=== PATIENT | female | born 1960 | race American Indian/Alaskan Native ===

== ENCOUNTER 2017-08-13 14:55 | Inpatient (IN) | payer MEDICAID, OTHER ==
[2017-08-13] MEDS ORDERED: NACL 0.9% 1000 ML 2,000 ML ONE (15:33)
[2017-08-13] MEDS ORDERED: ATIVAN ONE ×2 (15:40→18:54)
[2017-08-13] MEDS ORDERED: ATIVAN IV ONE ×3 (15:42→17:07)
[2017-08-13] MEDS ORDERED: NACL 0.9% 1000 ML 1,000 ML IV ONE ×2 (15:43→15:47)
[2017-08-13] MEDS ORDERED: VITAMIN B-1 100 MG, FOLVITE 1 MG, INFUVITE 10 ML in NACL 0.9% 1000 ML 1,000 ML IV ONE (15:45)
[2017-08-13] MEDS ORDERED: ATIVAN IV PRN (15:54)
[2017-08-13] MEDS ORDERED: TYLENOL PO ONE (17:06)
[2017-08-13 17:14] LABS: Amphetamine Screen,Urine PRESUMPTIVE NEGATIVE; Benzodiazepines Screen,Urine PRESUMPTIVE NEGATIVE; Cocaine Screen,Urine PRESUMPTIVE NEGATIVE; Methadone Screen,Urine PRESUMPTIVE NEGATIVE; Opiate Screen,Urine PRESUMPTIVE NEGATIVE
[2017-08-13 17:16] LABS: Bacteria,Urine 4+ /HPF (Negative); Bilirubin,Urine NEG (Negative); Blood,Urine MOD (Negative); Color,Urine Amber (Yellow); Hyaline Casts,Urine 1 /LPF; Mucus,Urine FEW /HPF; Nitrite,Urine NEG (Negative)
[2017-08-13 17:17] LABS: WBC,Urine > 182.0 /HPF (0.0-6.0)
--- NOTE | 2017-08-13 17:24 | Cat Scan Report ---
FINAL REPORT PROCEDURE: CT head without contrast. TECHNIQUE: Computerized tomography of the head was performed without contrast material. HISTORY: Alcohol withdrawal/seizure. COMPARISON: No prior studies are available for comparison. FINDINGS: There is motion artifact on several of the images. There is mild cerebral atrophy. The dean matter and white matter appear normal. There are no mass lesions. There is no intracranial hemorrhage. The calvarium appears intact. The mastoid air cells are clear. There is mucosal thickening in the right maxillary sinus, both frontal sinuses and a few of the ethmoid air cells. IMPRESSION: Limited study. No significant abnormality of the brain.
[2017-08-13 17:33] LABS: Cannabinoid Screen,Urine PRESUMPTIVE POSITIVE
[2017-08-13 17:45] LABS: Hemoglobin 11.3 gm/dl (10.1-14.3); Mean Corpuscular HGB Conc 34 % (30-34); Mean Corpuscular Hemoglobin 36 pg (28-32); Mean Corpuscular Volume 105 fl (79-97); Platelet Count 133 K/mm3 (140-440); Red Blood Count 3.16 M/mm3 (3.65-5.03); Red Cell Distribution Width 13.9 % (13.2-15.2)
[2017-08-13 18:06] LABS: Creatine Kinase MB 1.6 ng/mL (0.0-4.0)
[2017-08-13 18:08] LABS: Alanine Aminotransferase 52 units/L (7-56); Albumin 2.6 g/dL (3.9-5); BUN/Creatinine Ratio 13; Blood Urea Nitrogen 5 mg/dL (7-17); Calcium 7.3 mg/dL (8.4-10.2); Hemolysis Index 8
[2017-08-13 18:19] LABS: Band Neutrophils # (Manual) 1.4 K/mm3; Basophils % (Manual) 0 % (0.0-1.8); Eosinophils % (Manual) 0 % (0.0-4.3); Monocytes % (Manual) 0 % (0.0-7.3); Total Cells Counted 100
[2017-08-13 18:19] LABS: Magnesium 0.6 mg/dL (1.7-2.3)
[2017-08-13 18:20] LABS: INR 1.24 (0.87-1.13); Platelet Estimate Cons; RBC Morphology Normal; Toxic Granulation 1+; Toxic Vacuolation Few
[2017-08-13 18:21] LABS: Partial Thromboplastin Time 38.3 Sec. (24.2-36.6)
[2017-08-13] MEDS ORDERED: MAGNESIUM SULFATE 2GM/50ML 2 GM/50 ML BAG IV ONE (18:22)
[2017-08-13] MEDS ORDERED: MAGNESIUM SULFATE 4GM/100ML 4 GM/100 ML BAG IV ONE (18:23)
[2017-08-13] MEDS ORDERED: POTASSIUM CHLORIDE PO ONE (18:24)
--- NOTE | 2017-08-13 18:28 | Emergency Department Report ---
ED Palpitations HPI - General Chief Complaint: Arrhythmia/Palpitations Stated Complaint: SVT Time Seen by Provider: 08/13/17 15:53 Source: patient, old records reviewed (no trace regional hospital record for review) Mode of arrival: Stretcher Limitations: No Limitations - History of Present Illness Initial Comments: 56-year-old female with a past medical history hypertension and daily alcohol use presents to the hospital with tachycardia. Patient received adenosine 6 then 12 in route to the hospital without improvement. Patient has 2 daughters at the bedside. Patient has been having nausea, vomiting, and diarrhea today. Patient had a seizure witnessed by there are medical and therefore EMS was called. Patient had generalized shaking, foaming at the mouth, followed by post ictal/confusion. No previous history of seizures reported. They state the patient does drink alcohol daily and did not have a drink since yesterday. Patient presents extremely tremulous in the ED with tachycardia. Patient is alert and oriented 3. She denies any pain. - Related Data Allergies Allergy/AdvReac Type Severity Reaction Status Date / Time No Known Allergies Allergy Unverified 08/13/17 14:57 ED Review of Systems ROS: Stated complaint: SVT Other details as noted in HPI Comment: All other systems reviewed and negative Other: Constitutional: No fevers chills Eyes: No eye pain visual changes ENT: No ear pain or throat pain Neck: Denies pain Respiratory: Denies cough wheezing shortness of breath Cardiovascular: Denies chest pain GI: Denies abdominal pain : Denies dysuria Musculoskeletal: Denies back pain Skin: Denies rash Neurologic: Denies headache Psychiatric: Denies suicidal ideation, hallucinations ED Past Medical Hx - Past Medical History Hx Hypertension: Yes - Social History Smoking Status: Current Every Day Smoker Substance Use Type: Alcohol (daily) ED Physical Exam - General Limitations: No Limitations - Other Other exam information: General: Tremulous Head exam: Atraumatic, normocephalic Eyes exam: Normal appearance, pupils equal reactive to light ENT: Moist mucous membrane, normal oropharynx Neck exam: Normal inspection, full range of motion, no meningismus nontender Respiratory exam: Clear to auscultation bilateral, no wheezes, rales, crackles. Tachypnea Cardiovascular: Tachycardic regular rhythm Abdomen: Soft, nondistended, and nontender, with normal bowel sounds, no rebound, or guarding Extremity: Full range of motion normal inspection no deformity Back: Normal Inspection, full range of motion, no tenderness Neurologic: Alert, oriented x3, cranial nerves intact, no motor or sensory deficit, extremely tremulous Psychiatric: normal affect, normal mood Skin: Warm, dry, intact ED Course Vital Signs 08/13/17 08/13/17 08/13/17 14:57 15:20 15:45 Temperature 101.8 F H Pulse Rate 152 H 152 H 166 H Respiratory 18 40 H 34 H Rate Blood Pressure 121/76 103/74 114/78 Blood Pressure [Right] O2 Sat by Pulse 98 96 Oximetry 08/13/17 08/13/17 08/13/17 16:15 16:31 16:45 Temperature Pulse Rate 158 H 165 H 163 H Respiratory 32 H 20 21 Rate Blood Pressure 114/78 101/79 90/69 Blood Pressure [Right] O2 Sat by Pulse 100 98 Oximetry 08/13/17 08/13/17 08/13/17 17:01 17:15 17:30 Temperature Pulse Rate 147 H 152 H 145 H Respiratory 24 39 H 21 Rate Blood Pressure 90/69 90/69 120/79 Blood Pressure [Right] O2 Sat by Pulse 99 97 100 Oximetry 08/13/17 08/13/17 08/13/17 17:45 18:00 18:15 Temperature Pulse Rate 143 H 145 H 145 H Respiratory 28 H 28 H 27 H Rate Blood Pressure 120/79 118/74 118/74 Blood Pressure [Right] O2 Sat by Pulse 99 100 100 Oximetry 08/13/17 08/13/17 08/13/17 18:30 18:45 19:00 Temperature Pulse Rate 140 H 138 H 144 H Respiratory 20 26 H 13 Rate Blood Pressure 117/71 117/71 103/66 Blood Pressure [Right] O2 Sat by Pulse 100 99 97 Oximetry 08/13/17 08/13/17 19:01 19:15 Temperature 99.8 F H Pulse Rate 135 H Respiratory 18 18 Rate Blood Pressure Blood Pressure 117/71 [Right] O2 Sat by Pulse 100 100 Oximetry - Reevaluation(s) Reevaluation #1: 08/13/17 I was called to the bedside for possible adenosine administration due to persistent SVT. After monitoring EKG review and further history taking I believe the patient was experiencing acute alcohol withdrawal symptoms an EKG represents sinus tachycardia therefore no further adenosine provided at this time. Case was discussed with Dr. Joiner who agrees that findings do not support A. fib/flutter, or SVT at this time Reevaluation #2: With ED treatment heart rate is improving. Tremors are decreasing but persists. No further seizure activity in the ED. No vomiting - Consultations Consultation #1: 08/13/17 16:[address] Joiner, agrees not aflutter/fib. sinus tach likely. ED Medical Decision Making - Lab Data Result diagrams: 08/13/17 17:26 08/13/17 17:26 Lab Results 08/13/17 08/13/17 08/13/17 Range/Units 15:44 16:40 16:40 WBC (4.5-11.0) K/mm3 RBC (3.65-5.03) M/mm3 Hgb (10.1-14.3) gm/dl Hct (30.3-42.9) % MCV (79-97) fl MCH (28-32) pg MCHC (30-34) % RDW (13.2-15.2) % Plt Count (140-440) K/mm3 Add Manual Diff Total Counted Seg Neuts % (Manual) (40.0-70.0) % Band Neutrophils % % Lymphocytes % (Manual) (13.4-35.0) % Reactive Lymphs % (Man) % Monocytes % (Manual) (0.0-7.3) % Eosinophils % (Manual) (0.0-4.3) % Basophils % (Manual) (0.0-1.8) % Metamyelocytes % % Myelocytes % % Promyelocytes % % Blast Cells % % Nucleated RBC % Seg Neutrophils # Man (1.8-7.7) K/mm3 Band Neutrophils # K/mm3 Lymphocytes # (Manual) (1.2-5.4) K/mm3 Abs React Lymphs (Man) K/mm3 Monocytes # (Manual) (0.0-0.8) K/mm3 Eosinophils # (Manual) (0.0-0.4) K/mm3 Basophils # (Manual) (0.0-0.1) K/mm3 Metamyelocytes # K/mm3 Myelocytes # K/mm3 Promyelocytes # K/mm3 Blast Cells # K/mm3 WBC Morphology Hypersegmented Neuts Hyposegmented Neuts Hypogranular Neuts Smudge Cells Toxic Granulation Toxic Vacuolation Dohle Bodies Pelger-Huet Anomaly Kathryn Rods Platelet Estimate Clumped Platelets Plt Clumps, EDTA Large Platelets Giant Platelets Platelet Satelliting Plt Morphology Comment RBC Morphology Dimorphic RBCs Polychromasia Hypochromasia Poikilocytosis Anisocytosis Microcytosis Macrocytosis Spherocytes Pappenheimer Bodies Sickle Cells Target Cells Tear Drop Cells Ovalocytes Helmet Cells [place] Bodies [place] Rings Narda Cells Bite Cells Crenated Cell Elliptocytes Acanthocytes (Spur) Rouleaux Hemoglobin C Crystals Schistocytes Malaria parasites Eugene Bodies Hem Pathologist Commnt PT (12.2-14.9) Sec. INR (0.87-1.13) APTT (24.2-36.6) Sec. VBG pH (7.320-7.420) Sodium (137-145) mmol/L Potassium (3.6-5.0) mmol/L Chloride (98-107) mmol/L Carbon Dioxide (22-30) mmol/L Anion Gap mmol/L BUN (7-17) mg/dL Creatinine (0.7-1.2) mg/dL Estimated GFR ml/min BUN/Creatinine Ratio % Glucose (65-100) mg/dL Lactic Acid (0.7-2.0) mmol/L Calcium (8.4-10.2) mg/dL Magnesium 0.60 L* (1.7-2.3) mg/dL Total Bilirubin (0.1-1.2) mg/dL AST (5-40) units/L ALT (7-56) units/L Alkaline Phosphatase (35-129) units/L Total Creatine Kinase (30-135) units/L CK-MB (CK-2) (0.0-4.0) ng/mL CK-MB (CK-2) Rel Index (0-4) Troponin T (0.00-0.029) ng/mL Total Protein (6.3-8.2) g/dL Albumin (3.9-5) g/dL Albumin/Globulin Ratio % Lipase 8 L (13-60) units/L Urine Color Laura (Yellow) Urine Turbidity Slightly-cloudy (Clear) Urine pH 6.0 (5.0-7.0) Ur Specific [place] 1.016 (1.003-1.030) Urine Protein 100 mg/dl (Negative) mg/dL Urine Glucose (UA) Neg (Negative) mg/dL Urine Ketones Neg (Negative) mg/dL Urine Blood Mod (Negative) Urine Nitrite Neg (Negative) Urine Bilirubin Neg (Negative) Urine Urobilinogen 2.0 (<2.0) mg/dL Ur Leukocyte Esterase Lg (Negative) Urine WBC (Auto) > 182.0 H (0.0-6.0) /HPF Urine RBC (Auto) 68.0 (0.0-6.0) /HPF U Epithel Cells (Auto) < 1.0 (0-13.0) /HPF Urine Bacteria (Auto) 4+ (Negative) /HPF Ur Transition Epith Cell 2 /HPF Hyaline Casts 1 /LPF Urine Mucus Few /HPF Urine Opiates Screen Presumptive negative Urine Methadone Screen Presumptive negative Ur Barbiturates Screen Presumptive negative Ur Phencyclidine Scrn Presumptive negative Ur Amphetamines Screen Presumptive negative U Benzodiazepines Scrn Presumptive negative Urine Cocaine Screen Presumptive negative U Marijuana (THC) Screen Presumptive positive Drugs of Abuse Note Disclamer Plasma/Serum Alcohol (0-0.07) gm% 08/13/17 08/13/17 08/13/17 Range/Units 17:26 17:26 17:26 WBC 23.7 H (4.5-11.0) K/mm3 RBC 3.16 L (3.65-5.03) M/mm3 Hgb 11.3 (10.1-14.3) gm/dl Hct 33.0 (30.3-42.9) % MCV 105 H (79-97) fl MCH 36 H (28-32) pg MCHC 34 (30-34) % RDW 13.9 (13.2-15.2) % Plt Count 133 L (140-440) K/mm3 Add Manual Diff Complete Total Counted 100 Seg Neuts % (Manual) 90.0 H (40.0-70.0) % Band Neutrophils % 6.0 % Lymphocytes % (Manual) 4.0 L (13.4-35.0) % Reactive Lymphs % (Man) 0 % Monocytes % (Manual) 0 (0.0-7.3) % Eosinophils % (Manual) 0 (0.0-4.3) % Basophils % (Manual) 0 (0.0-1.8) % Metamyelocytes % 0 % Myelocytes % 0 % Promyelocytes % 0 % Blast Cells % 0 % Nucleated RBC % Not Reportable Seg Neutrophils # Man 21.3 H (1.8-7.7) K/mm3 Band Neutrophils # 1.4 K/mm3 Lymphocytes # (Manual) 0.9 L (1.2-5.4) K/mm3 Abs React Lymphs (Man) 0.0 K/mm3 Monocytes # (Manual) 0.0 (0.0-0.8) K/mm3 Eosinophils # (Manual) 0.0 (0.0-0.4) K/mm3 Basophils # (Manual) 0.0 (0.0-0.1) K/mm3 Metamyelocytes # 0.0 K/mm3 Myelocytes # 0.0 K/mm3 Promyelocytes # 0.0 K/mm3 Blast Cells # 0.0 K/mm3 WBC Morphology Not Reportable Hypersegmented Neuts Not Reportable Hyposegmented Neuts Not Reportable Hypogranular Neuts Not Reportable Smudge Cells Not Reportable Toxic Granulation 1+ Toxic Vacuolation Few Dohle Bodies Not Reportable Pelger-Huet Anomaly Not Reportable Kathryn Rods Not Reportable Platelet Estimate Cons Clumped Platelets Not Reportable Plt Clumps, EDTA Not Reportable Large Platelets Not Reportable Giant Platelets Not Reportable Platelet Satelliting Not Reportable Plt Morphology Comment Not Reportable RBC Morphology Normal Dimorphic RBCs Not Reportable Polychromasia Not Reportable Hypochromasia Not Reportable Poikilocytosis Not Reportable Anisocytosis Not Reportable Microcytosis Not Reportable Macrocytosis Not Reportable Spherocytes Not Reportable Pappenheimer Bodies Not Reportable Sickle Cells Not Reportable Target Cells Not Reportable Tear Drop Cells Not Reportable Ovalocytes Not Reportable Helmet Cells Not Reportable [place] Bodies Not Reportable [place] Rings Not Reportable [place] Cells Not Reportable Bite Cells Not Reportable Crenated Cell Not Reportable Elliptocytes Not Reportable Acanthocytes (Spur) Not Reportable Rouleaux Not Reportable Hemoglobin C Crystals Not Reportable Schistocytes Not Reportable Malaria parasites Not Reportable [place] Bodies Not Reportable Hem Pathologist Commnt No PT 16.3 H (12.2-14.9) Sec. INR 1.24 H (0.87-1.13) APTT 38.3 H (24.2-36.6) Sec. VBG pH (7.320-7.420) Sodium 136 L (137-145) mmol/L Potassium 3.2 L (3.6-5.0) mmol/L Chloride 97.1 L (98-107) mmol/L Carbon Dioxide 16 L (22-30) mmol/L Anion Gap 26 mmol/L BUN 5 L (7-17) mg/dL Creatinine 0.4 L (0.7-1.2) mg/dL Estimated GFR > 60 ml/min BUN/Creatinine Ratio 13 % Glucose 115 H (65-100) mg/dL Lactic Acid (0.7-2.0) mmol/L Calcium 7.3 L (8.4-10.2) mg/dL Magnesium (1.7-2.3) mg/dL Total Bilirubin 1.00 (0.1-1.2) mg/dL AST 123 H (5-40) units/L ALT 52 (7-56) units/L Alkaline Phosphatase 198 H (35-129) units/L Total Creatine Kinase 70 (30-135) units/L CK-MB (CK-2) 1.6 (0.0-4.0) ng/mL CK-MB (CK-2) Rel Index 2.2 (0-4) Troponin T < 0.010 (0.00-0.029) ng/mL Total Protein 6.2 L (6.3-8.2) g/dL Albumin 2.6 L (3.9-5) g/dL Albumin/Globulin Ratio 0.7 % Lipase (13-60) units/L Urine Color (Yellow) Urine Turbidity (Clear) Urine pH (5.0-7.0) Ur Specific [place] (1.003-1.030) Urine Protein (Negative) mg/dL Urine Glucose (UA) (Negative) mg/dL Urine Ketones (Negative) mg/dL Urine Blood (Negative) Urine Nitrite (Negative) Urine Bilirubin (Negative) Urine Urobilinogen (<2.0) mg/dL Ur Leukocyte Esterase (Negative) Urine WBC (Auto) (0.0-6.0) /HPF Urine RBC (Auto) (0.0-6.0) /HPF U Epithel Cells (Auto) (0-13.0) /HPF Urine Bacteria (Auto) (Negative) /HPF Ur Transition Epith Cell /HPF Hyaline Casts /LPF Urine Mucus /HPF Urine Opiates Screen Urine Methadone Screen Ur Barbiturates Screen Ur Phencyclidine Scrn Ur Amphetamines Screen U Benzodiazepines Scrn Urine Cocaine Screen U Marijuana (THC) Screen Drugs of Abuse Note Plasma/Serum Alcohol (0-0.07) gm% 08/13/17 08/13/17 08/13/17 Range/Units 17:26 17:26 17:26 WBC (4.5-11.0) K/mm3 RBC (3.65-5.03) M/mm3 Hgb (10.1-14.3) gm/dl Hct (30.3-42.9) % MCV (79-97) fl MCH (28-32) pg MCHC (30-34) % RDW (13.2-15.2) % Plt Count (140-440) K/mm3 Add Manual Diff Total Counted Seg Neuts % (Manual) (40.0-70.0) % Band Neutrophils % % Lymphocytes % (Manual) (13.4-35.0) % Reactive Lymphs % (Man) % Monocytes % (Manual) (0.0-7.3) % Eosinophils % (Manual) (0.0-4.3) % Basophils % (Manual) (0.0-1.8) % Metamyelocytes % % Myelocytes % % Promyelocytes % % Blast Cells % % Nucleated RBC % Seg Neutrophils # Man (1.8-7.7) K/mm3 Band Neutrophils # K/mm3 Lymphocytes # (Manual) (1.2-5.4) K/mm3 Abs React Lymphs (Man) K/mm3 Monocytes # (Manual) (0.0-0.8) K/mm3 Eosinophils # (Manual) (0.0-0.4) K/mm3 Basophils # (Manual) (0.0-0.1) K/mm3 Metamyelocytes # K/mm3 Myelocytes # K/mm3 Promyelocytes # K/mm3 Blast Cells # K/mm3 WBC Morphology Hypersegmented Neuts Hyposegmented Neuts Hypogranular Neuts Smudge Cells Toxic Granulation Toxic Vacuolation Dohle Bodies Pelger-Huet Anomaly Kathryn Rods Platelet Estimate Clumped Platelets Plt Clumps, EDTA Large Platelets Giant Platelets Platelet Satelliting Plt Morphology Comment RBC Morphology Dimorphic RBCs Polychromasia Hypochromasia Poikilocytosis Anisocytosis Microcytosis Macrocytosis Spherocytes Pappenheimer Bodies Sickle Cells Target Cells Tear Drop Cells Ovalocytes Helmet Cells [place] Bodies [place] Rings [place] Cells Bite Cells Crenated Cell Elliptocytes Acanthocytes (Spur) Rouleaux Hemoglobin C Crystals Schistocytes Malaria parasites Eugene Bodies Hem Pathologist Commnt PT (12.2-14.9) Sec. INR (0.87-1.13) APTT (24.2-36.6) Sec. VBG pH 7.517 H (7.320-7.420) Sodium (137-145) mmol/L Potassium (3.6-5.0) mmol/L Chloride (98-107) mmol/L Carbon Dioxide (22-30) mmol/L Anion Gap mmol/L BUN (7-17) mg/dL Creatinine (0.7-1.2) mg/dL Estimated GFR ml/min BUN/Creatinine Ratio % Glucose (65-100) mg/dL Lactic Acid 7.30 H* (0.7-2.0) mmol/L Calcium (8.4-10.2) mg/dL Magnesium (1.7-2.3) mg/dL Total Bilirubin (0.1-1.2) mg/dL AST (5-40) units/L ALT (7-56) units/L Alkaline Phosphatase (35-129) units/L Total Creatine Kinase (30-135) units/L CK-MB (CK-2) (0.0-4.0) ng/mL CK-MB (CK-2) Rel Index (0-4) Troponin T (0.00-0.029) ng/mL Total Protein (6.3-8.2) g/dL Albumin (3.9-5) g/dL Albumin/Globulin Ratio % Lipase (13-60) units/L Urine Color (Yellow) Urine Turbidity (Clear) Urine pH (5.0-7.0) Ur Specific [place] (1.003-1.030) Urine Protein (Negative) mg/dL Urine Glucose (UA) (Negative) mg/dL Urine Ketones (Negative) mg/dL Urine Blood (Negative) Urine Nitrite (Negative) Urine Bilirubin (Negative) Urine Urobilinogen (<2.0) mg/dL Ur Leukocyte Esterase (Negative) Urine WBC (Auto) (0.0-6.0) /HPF Urine RBC (Auto) (0.0-6.0) /HPF U Epithel Cells (Auto) (0-13.0) /HPF Urine Bacteria (Auto) (Negative) /HPF Ur Transition Epith Cell /HPF Hyaline Casts /LPF Urine Mucus /HPF Urine Opiates Screen Urine Methadone Screen Ur Barbiturates Screen Ur Phencyclidine Scrn Ur Amphetamines Screen U Benzodiazepines Scrn Urine Cocaine Screen U Marijuana (THC) Screen Drugs of Abuse Note Plasma/Serum Alcohol < 0.01 (0-0.07) gm% - EKG Data -: EKG Interpreted by Me (+ artifact) EKG shows normal: sinus rhythm, axis (15), QRS complexes (81), ST-T waves (no stemi) Rate: tachycardia (166) - EKG Data When compared to previous EKG there are: previous EKG unavailable - Radiology Data Radiology results: report reviewed read by radiologist ct head: naf cxr: naf - Medical Decision Making Patient will require admission to the ICU for further treatment and stabilization. Alcohol withdrawal: Patient has alcohol dependence and exhibiting alcohol was drawn tremors with associated seizures. This likely cause of her tachycardia along with dehydration due to nausea and vomiting and a fever. Patient receiving multiple doses of Ativan for symptom control CIWA protocol initiated Seizure: Related to alcohol withdrawal, low magnesium CT head negative can also contribute to elevated lactic acid Sepsis: Positive UTI. Zosyn initiated. Significant leukocytosis Likely cause of fever and contributing factor tachycardia Elevated lactic acid Blood cultures and urine cultures pending Alcohol abuse/dependence: Patient has signs of long-term alcohol abuse included thrombocytopenia, elevated coags, LFT elevation, magnesium, and hypokalemia. Potassium initiated by mouth Magnesium 4 g initiated in the ED Up-to-date provided to daughter (contact on chart) regarding patient's status and need for ICU admission - Differential Diagnosis sepsis, alcohol withdrawal, electrolyte abnormality, ICH, encephalopathy, Critical Care Time: Yes Critical care time in (mins) excluding proc time.: 45 Critical care attestation.: If time is entered above; I have spent that time in minutes in the direct care of this critically ill patient, excluding procedure time. ED Disposition Clinical Impression: Alcohol withdrawal seizure, Tremor, Sinus tachycardia, Hypomagnesemia, Hypokalemia, UTI (urinary tract infection), Sepsis, Lactic acid acidosis, Thrombocytopenia, Marijuana abuse, Alcohol dependence Alcohol withdrawal Qualifiers: Complication of substance-induced condition: with unspecified complication Qualified Code(s): F10.239 - Alcohol dependence with withdrawal, unspecified Disposition: DC-09 OP ADMIT IP TO THIS HOSP Is pt being admited?: Yes Condition: Serious Time of Disposition: 18:28 (Dr Velasquez/hosp)
[2017-08-13] MEDS ORDERED: ZOSYN/NS 4.5GM/100ML 4.5 GM/100 ML VIAL IV SCH (18:30)
--- NOTE | 2017-08-13 18:49 | XRay Report ---
FINAL REPORT EXAM: XR CHEST 1V AP HISTORY: fever, seizure TECHNIQUE: upright single view chest PRIORS: None. FINDINGS: Cardiac and mediastinal contours are unremarkable. No focal pulmonary infiltrate is identified. No pleural fluid collection seen. Pulmonary vasculature is unremarkable. IMPRESSION: Negative single-view chest
[2017-08-13] MEDS ORDERED: MAGNESIUM SULFATE 2GM/50ML 4 GM/100 ML BAG IV ONE (18:55)
[2017-08-13] MEDS ORDERED: TRIPLE ANTIBIOTIC TP ONE (23:43)
--- NOTE | 2017-08-13 23:55 | History and Physical Report ---
History of Present Illness Date of examination: 08/13/17 Date of admission: 08/13/17 18:29 Chief complaint: Cc New onset seizures History of present illness: History of Present Illness 56-year-old female with a past medical history hypertension and daily alcohol use presents to the hospital with tachycardia. Patient received adenosine 6 then 12 en route to the hospital without improvement. Patient has 2 daughters at the bedside. Patient has been having nausea, vomiting, and diarrhea today. Patient had a seizure witnessed by them and therefore EMS was called. Patient had generalized shaking, foaming at the mouth, followed by post ictal/ confusion. No previous history of seizures reported. They state the patient does drink alcohol daily and did not have a drink since yesterday. Patient presents extremely tremulous in the ED with tachycardia. Patient is alert and oriented 3. She denies any pain. Past Medical History Hypertension Social History Smoking Status: Current Every Day Smoker Substance Use Type: Alcohol (daily) Surg Hx NA Fam Hx Htn Review of Systems Stated complaint: SVT Other details as noted in HPI Comment: All other systems reviewed and negative Other: Constitutional: No fevers chills Eyes: No eye pain visual changes ENT: No ear pain or throat pain Neck: Denies pain Respiratory: Denies cough wheezing shortness of breath Cardiovascular: Denies chest pain GI: Denies abdominal pain : Denies dysuria Musculoskeletal: Denies back pain Skin: Denies rash Neurologic: Denies headache Psychiatric: Denies suicidal ideation, hallucinations Medications and Allergies Allergies Allergy/AdvReac Type Severity Reaction Status Date / Time No Known Allergies Allergy Unverified 08/13/17 14:57 Active Meds: Active Medications Piperacillin Sod/Tazobactam Sod (Zosyn/Ns 4.5gm/100ml) 4.5 gm in 100 mls @ 200 mls/hr IV ONCE FADY Lorazepam (Ativan) 2 mg IV Q1HR PRN PRN Reason: CIWA-Ar 8-15 Lorazepam (Ativan) 4 mg IV Q1HR PRN PRN Reason: CIWA-Ar 16-25 Last Admin: 08/13/17 23:14 Dose: 4 mg Lorazepam (Ativan) 4 mg IV Q15MIN PRN PRN Reason: CIWA-Ar >25 Exam - Constitutional Vitals: Temp Pulse Resp BP Pulse Ox 102.0 F H 130 H 24 111/70 99 08/13/17 19:58 01/09/18 19:58 08/13/17 19:58 08/13/17 19:58 08/13/17 19:58 General appearance: Present: mild distress, well-nourished - EENT Eyes: Present: PERRL ENT: hearing intact, clear oral mucosa - Neck Neck: Present: supple, normal ROM - Respiratory Respiratory effort: normal Respiratory: bilateral: CTA - Cardiovascular Heart rate: 110 Rhythm: regular Heart Sounds: Present: S1 & S2. Absent: rub, click - Extremities Extremities: no ischemia, pulses intact, pulses symmetrical, No edema Peripheral Pulses: within normal limits - Abdominal General gastrointestinal: Present: soft, non-tender, non-distended, normal bowel sounds Female genitourinary: Present: normal - Integumentary Integumentary: Present: clear, warm, dry - Musculoskeletal Musculoskeletal: generalized weakness - Psychiatric Psychiatric: intact judgment & insight, memory intact, agitated - Neurologic Neurologic: CNII-XII intact, moves all extremities - Allied Health Allied health notes reviewed: nursing, case management Results - Labs CBC & Chem 7: 08/13/17 17:26 08/14/17 05:45 Labs: Laboratory Last Values WBC 23.7 K/mm3 (4.5-11.0) H 08/13/17 17:26 RBC 3.16 M/mm3 (3.65-5.03) L 08/13/17 17:26 Hgb 11.3 gm/dl (10.1-14.3) 08/13/17 17:26 Hct 33.0 % (30.3-42.9) 08/13/17 17:26 MCV 105 fl (79-97) H 08/13/17 17:26 MCH 36 pg (28-32) H 08/13/17 17:26 MCHC 34 % (30-34) 08/13/17 17:26 RDW 13.9 % (13.2-15.2) 08/13/17 17:26 Plt Count 133 K/mm3 (140-440) L 08/13/17 17:26 Add Manual Diff Complete 08/13/17 17:26 Total Counted 100 08/13/17 17:26 Seg Neuts % (Manual) 90.0 % (40.0-70.0) H 08/13/17 17:26 Band Neutrophils % 6.0 % 08/13/17 17:26 Lymphocytes % (Manual) 4.0 % (13.4-35.0) L 08/13/17 17:26 Reactive Lymphs % (Man) 0 % 08/13/17 17:26 Monocytes % (Manual) 0 % (0.0-7.3) 08/13/17 17:26 Eosinophils % (Manual) 0 % (0.0-4.3) 08/13/17 17:26 Basophils % (Manual) 0 % (0.0-1.8) 08/13/17 17:26 Metamyelocytes % 0 % 08/13/17 17:26 Myelocytes % 0 % 08/13/17 17:26 Promyelocytes % 0 % 08/13/17 17:26 Blast Cells % 0 % 08/13/17 17:26 Nucleated RBC % Not Reportable 08/13/17 17:26 Seg Neutrophils # Man 21.3 K/mm3 (1.8-7.7) H 08/13/17 17:26 Band Neutrophils # 1.4 K/mm3 08/13/17 17:26 Lymphocytes # (Manual) 0.9 K/mm3 (1.2-5.4) L 08/13/17 17:26 Abs React Lymphs (Man) 0.0 K/mm3 08/13/17 17:26 Monocytes # (Manual) 0.0 K/mm3 (0.0-0.8) 08/13/17 17:26 Eosinophils # (Manual) 0.0 K/mm3 (0.0-0.4) 08/13/17 17:26 Basophils # (Manual) 0.0 K/mm3 (0.0-0.1) 08/13/17 17:26 Metamyelocytes # 0.0 K/mm3 08/13/17 17:26 Myelocytes # 0.0 K/mm3 08/13/17 17:26 Promyelocytes # 0.0 K/mm3 08/13/17 17:26 Blast Cells # 0.0 K/mm3 08/13/17 17:26 WBC Morphology Not Reportable 08/13/17 17:26 Hypersegmented Neuts Not Reportable 08/13/17 17:26 Hyposegmented Neuts Not Reportable 08/13/17 17:26 Hypogranular Neuts Not Reportable 08/13/17 17:26 Smudge Cells Not Reportable 08/13/17 17:26 Toxic Granulation 1+ 08/13/17 17:26 Toxic Vacuolation Few 08/13/17 17:26 Dohle Bodies Not Reportable 08/13/17 17:26 Pelger-Huet Anomaly Not Reportable 08/13/17 17:26 Kathryn Rods Not Reportable 08/13/17 17:26 Platelet Estimate Cons 08/13/17 17:26 Clumped Platelets Not Reportable 08/13/17 17:26 Plt Clumps, EDTA Not Reportable 08/13/17 17:26 Large Platelets Not Reportable 08/13/17 17:26 Giant Platelets Not Reportable 08/13/17 17:26 Platelet Satelliting Not Reportable 08/13/17 17:26 Plt Morphology Comment Not Reportable 08/13/17 17:26 RBC Morphology Normal 08/13/17 17:26 Dimorphic RBCs Not Reportable 08/13/17 17:26 Polychromasia Not Reportable 08/13/17 17:26 Hypochromasia Not Reportable 08/13/17 17:26 Poikilocytosis Not Reportable 08/13/17 17:26 Anisocytosis Not Reportable 08/13/17 17:26 Microcytosis Not Reportable 08/13/17 17:26 Macrocytosis Not Reportable 08/13/17 17:26 Spherocytes Not Reportable 08/13/17 17:26 Pappenheimer Bodies Not Reportable 08/13/17 17:26 Sickle Cells Not Reportable 08/13/17 17:26 Target Cells Not Reportable 08/13/17 17:26 Tear Drop Cells Not Reportable 08/13/17 17:26 Ovalocytes Not Reportable 08/13/17 17:26 Helmet Cells Not Reportable 08/13/17 17:[address] [place] Bodies Not Reportable 08/13/17 17:26 [place] Rings Not Reportable 08/13/17 17:26 [place] Cells Not Reportable 08/13/17 17:26 Bite Cells Not Reportable 08/13/17 17:26 Crenated Cell Not Reportable 08/13/17 17:26 Elliptocytes Not Reportable 08/13/17 17:26 Acanthocytes (Spur) Not Reportable 08/13/17 17:26 Rouleaux Not Reportable 08/13/17 17:26 Hemoglobin C Crystals Not Reportable 08/13/17 17:26 Schistocytes Not Reportable 08/13/17 17:26 Malaria parasites Not Reportable 08/13/17 17:26 [place] Bodies Not Reportable 08/13/17 17:26 Hem Pathologist Commnt No 08/13/17 17:26 PT 16.3 Sec. (12.2-14.9) H 08/13/17 17:26 INR 1.24 (0.87-1.13) H 08/13/17 17:26 APTT 38.3 Sec. (24.2-36.6) H 08/13/17 17:26 VBG pH 7.517 (7.320-7.420) H 08/13/17 17:26 Sodium 136 mmol/L (137-145) L 08/13/17 17:26 Potassium 3.2 mmol/L (3.6-5.0) L 08/13/17 17:26 Chloride 97.1 mmol/L (98-107) L 08/13/17 17:26 Carbon Dioxide 16 mmol/L (22-30) L 08/13/17 17:26 Anion Gap 26 mmol/L 08/13/17 17:26 BUN 5 mg/dL (7-17) L 08/13/17 17:26 Creatinine 0.4 mg/dL (0.7-1.2) L 08/13/17 17:26 Estimated GFR > 60 ml/min 08/13/17 17:26 BUN/Creatinine Ratio 13 % 08/13/17 17:26 Glucose 115 mg/dL (65-100) H 08/13/17 17:26 Lactic Acid 7.30 mmol/L (0.7-2.0) H* 08/13/17 17:26 Calcium 7.3 mg/dL (8.4-10.2) L 08/13/17 17:26 Magnesium 0.60 mg/dL (1.7-2.3) L* 08/13/17 15:44 Total Bilirubin 1.00 mg/dL (0.1-1.2) 08/13/17 17:26 AST 123 units/L (5-40) H 08/13/17 17:26 ALT 52 units/L (7-56) 08/13/17 17:26 Alkaline Phosphatase 198 units/L (35-129) H 08/13/17 17:26 Total Creatine Kinase 70 units/L (30-135) 08/13/17 17:26 CK-MB (CK-2) 1.6 ng/mL (0.0-4.0) 08/13/17 17:26 CK-MB (CK-2) Rel Index 2.2 (0-4) 08/13/17 17:26 Troponin T < 0.010 ng/mL (0.00-0.029) 08/13/17 17:26 Total Protein 6.2 g/dL (6.3-8.2) L 08/13/17 17:26 Albumin 2.6 g/dL (3.9-5) L 08/13/17 17:26 Albumin/Globulin Ratio 0.7 % 08/13/17 17:26 Lipase 8 units/L (13-60) L 08/13/17 15:44 Urine Color Laura (Yellow) 08/13/17 16:40 Urine Turbidity Slightly-cloudy (Clear) 08/13/17 16:40 Urine pH 6.0 (5.0-7.0) 08/13/17 16:40 Ur Specific [place] 1.016 (1.003-1.030) 08/13/17 16:40 Urine Protein 100 mg/dl mg/dL (Negative) 08/13/17 16:40 Urine Glucose (UA) Neg mg/dL (Negative) 08/13/17 16:40 Urine Ketones Neg mg/dL (Negative) 08/13/17 16:40 Urine Blood Mod (Negative) 08/13/17 16:40 Urine Nitrite Neg (Negative) 08/13/17 16:40 Urine Bilirubin Neg (Negative) 08/13/17 16:40 Urine Urobilinogen 2.0 mg/dL (<2.0) 08/13/17 16:40 Ur Leukocyte Esterase Lg (Negative) 08/13/17 16:40 Urine WBC (Auto) > 182.0 /HPF (0.0-6.0) H 08/13/17 16:40 Urine RBC (Auto) 68.0 /HPF (0.0-6.0) 08/13/17 16:40 U Epithel Cells (Auto) < 1.0 /HPF (0-13.0) 08/13/17 16:40 Urine Bacteria (Auto) 4+ /HPF (Negative) 08/13/17 16:40 Ur Transition Epith Cell 2 /HPF 08/13/17 16:40 Hyaline Casts 1 /LPF 08/13/17 16:40 Urine Mucus Few /HPF 08/13/17 16:40 Urine Opiates Screen Presumptive negative 08/13/17 16:40 Urine Methadone Screen Presumptive negative 08/13/17 16:40 Ur Barbiturates Screen Presumptive negative 08/13/17 16:40 Ur Phencyclidine Scrn Presumptive negative 08/13/17 16:40 Ur Amphetamines Screen Presumptive negative 08/13/17 16:40 U Benzodiazepines Scrn Presumptive negative 08/13/17 16:40 Urine Cocaine Screen Presumptive negative 08/13/17 16:40 U Marijuana (THC) Screen Presumptive positive 08/13/17 16:40 Drugs of Abuse Note Disclamer 08/13/17 16:40 Plasma/Serum Alcohol < 0.01 gm% (0-0.07) 08/13/17 17:26 - Imaging and Cardiology EKG: report reviewed (Sinus Tach 166) CT Scan - head: report reviewed Assessment and Plan Advance Directives: Yes (FC) VTE prophylaxis?: Chemical Plan of care discussed with patient/family: Yes - Patient Problems (1) Sepsis Current Visit: Yes Status: Acute Qualifiers: Sepsis type: sepsis due to unspecified organism Qualified Code(s): A41.9 - Sepsis, unspecified organism Plan to address problem: Purcell cultures pending.Urine has 182 WBVC Initiated on Rocephin. Was given Zosyn in ER (2) Alcohol withdrawal seizure Current Visit: Yes Status: Acute Qualifiers: Complication of substance-induced condition: with delirium Qualified Code(s ): F10.231 - Alcohol dependence with withdrawal delirium Plan to address problem: Initiated on Keppra Defer to Team 1 whether to cont Keppra (3) Hypokalemia Current Visit: Yes Status: Acute Plan to address problem: supplemented (4) Hypomagnesemia Current Visit: Yes Status: Acute Plan to address problem: Supplemented (5) Lactic acid acidosis Current Visit: Yes Status: Acute Plan to address problem: Sec to sepsis and seizures (6) Marijuana abuse Current Visit: Yes Status: Chronic Plan to address problem: To be counselled (7) Alcohol dependence Current Visit: Yes Status: Chronic Qualifiers: Substance use status: in withdrawal Plan to address problem: MH consult (8) Delirium tremens Current Visit: Yes Status: Acute Plan to address problem: Initiated on CIWA protocol (9) UTI (urinary tract infection) Current Visit: Yes Status: Acute Qualifiers: Urinary tract infection type: acute cystitis Plan to address problem: On Rocephum (10) Sinus tachycardia Current Visit: Yes Status: Acute Plan to address problem: Sec to volume depletion and Dt's (11) Transaminitis Current Visit: Yes Status: Acute Plan to address problem: Sec to ETOH Hepatitis profile ordered (12) DVT prophylaxis Current Visit: Yes Status: Acute Plan to address problem: On Lovenox
[2017-08-14] MEDS ORDERED: DULCOLAX PR PRN (01:42)
[2017-08-14] MEDS ORDERED: MILK OF MAGNESIA PO PRN (01:42)
[2017-08-14] MEDS ORDERED: ZOFRAN IV PRN (01:42)
[2017-08-14] MEDS ORDERED: TYLENOL PO PRN (01:42)
[2017-08-14] MEDS ORDERED: MORPHINE IV PRN ×2 (01:42)
[2017-08-14] MEDS ORDERED: D5NS 1,000 ML IV SCH (02:00)
[2017-08-14] MEDS: PEPCID IV SCH ×2 (02:15→11:14)
[2017-08-14] MEDS ORDERED: CARDIZEM IV ONE (04:42)
[2017-08-14] MEDS: ATIVAN IV PRN ×5 (05:34→19:25)
[2017-08-14] MEDS ORDERED: NACL 0.9% 500 ML 500 ML ONE ×3 (05:45→22:01)
[2017-08-14 06:12] LABS: BUN/Creatinine Ratio 13; Blood Urea Nitrogen 4 mg/dL (7-17); Calcium 7.7 mg/dL (8.4-10.2); Hemolysis Index 30
[2017-08-14] MEDS ORDERED: MAGNESIUM SULFATE 2GM/50ML 2 GM/50 ML BAG IV ONE (08:00)
[2017-08-14 08:10] LABS: BUN/Creatinine Ratio 10; Blood Urea Nitrogen 4 mg/dL (7-17); Calcium 7.5 mg/dL (8.4-10.2); Hemolysis Index 15
[2017-08-14] MEDS: KEPPRA 750 MG in NACL 0.9% 100 ML IV SCH (08:11)
[2017-08-14] MEDS ORDERED: D5W/0.45% NACL/KCL 20 MEQ 20 MEQ/1,000 ML BAG IV ONE (08:48)
[2017-08-14] MEDS ORDERED: D5W/0.45% NACL/KCL 20 MEQ 20 MEQ/1,000 ML BAG IV SCH (09:00)
[2017-08-14] MEDS: cefTRIAXone 2 GM in NACL 0.9% 20 ML IV SCH (10:50)
--- NOTE | 2017-08-14 11:54 | Progress Note ---
Assessment and Plan Assessment and plan: 56-year-old female with a past medical history hypertension and daily alcohol use presents to the hospital with tachycardia. Patient received adenosine 6 then 12 en route to the hospital without improvement. Patient has 2 daughters at the bedside. Patient was been having nausea, vomiting, and diarrhea . Patient had a seizure witnessed by them and therefore EMS was called. Patient had generalized shaking, foaming at the mouth, followed by post ictal/ confusion. No previous history of seizures reported. They state the patient does drink alcohol daily and did not have a drink since one day. 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 The aggregate critical care time was [33] minutes. This time is in addition to time spent performing reported procedures but includes the following: [] Data Review and interpretation [] Patient assessment and monitoring of vital signs [] Documentation [] Medication orders and management History Interval history: Patient remains nonresponsive, not had any further seizures, no agitation or vomiting no fevers Nurses relate that her blood pressure has been running low but has not required pressors Hospitalist Physical - Physical exam Narrative exam: General.: Appears well, no distress, nontoxic, disheveled and unkempt HEENT: Moist mucous membranes, extraocular muscles intact, no lymphadenopathy Neck: supple Cardiac: S1-S2 heard Lungs: clear to auscultation bilaterally Abdomen: soft , nontender, nondistended, bowel sounds positive Extremities: no edema clubbing or cyanosis Skin: no rash or lesions Neurologic: Obtunded, nonresponsive, moves extremities and withdraws from pain. - Constitutional Vitals: Temp Pulse Resp BP Pulse Ox 98.6 F 129 H 32 H 106/62 93 08/14/17 09:00 08/14/17 08:45 08/14/17 08:45 08/14/17 08:45 08/14/17 08:45 General appearance: Present: mild distress, well-nourished Results - Labs CBC & Chem 7: 08/15/17 08:33 08/15/17 08:33 Labs: Laboratory Last Values WBC 23.7 K/mm3 (4.5-11.0) H 08/13/17 17:26 RBC 3.16 M/mm3 (3.65-5.03) L 08/13/17 17:26 Hgb 11.3 gm/dl (10.1-14.3) 08/13/17 17:26 Hct 33.0 % (30.3-42.9) 08/13/17 17:26 MCV 105 fl (79-97) H 08/13/17 17:26 MCH 36 pg (28-32) H 08/13/17 17:26 MCHC 34 % (30-34) 08/13/17 17:26 RDW 13.9 % (13.2-15.2) 08/13/17 17:26 Plt Count 133 K/mm3 (140-440) L 08/13/17 17:26 Add Manual Diff Complete 08/13/17 17:26 Total Counted 100 08/13/17 17:26 Seg Neuts % (Manual) 90.0 % (40.0-70.0) H 08/13/17 17:26 Band Neutrophils % 6.0 % 08/13/17 17:26 Lymphocytes % (Manual) 4.0 % (13.4-35.0) L 08/13/17 17:26 Reactive Lymphs % (Man) 0 % 08/13/17 17:26 Monocytes % (Manual) 0 % (0.0-7.3) 08/13/17 17:26 Eosinophils % (Manual) 0 % (0.0-4.3) 08/13/17 17:26 Basophils % (Manual) 0 % (0.0-1.8) 08/13/17 17:26 Metamyelocytes % 0 % 08/13/17 17:26 Myelocytes % 0 % 08/13/17 17:26 Promyelocytes % 0 % 08/13/17 17:26 Blast Cells % 0 % 08/13/17 17:26 Nucleated RBC % Not Reportable 08/13/17 17:26 Seg Neutrophils # Man 21.3 K/mm3 (1.8-7.7) H 08/13/17 17:26 Band Neutrophils # 1.4 K/mm3 08/13/17 17:26 Lymphocytes # (Manual) 0.9 K/mm3 (1.2-5.4) L 08/13/17 17:26 Abs React Lymphs (Man) 0.0 K/mm3 08/13/17 17:26 Monocytes # (Manual) 0.0 K/mm3 (0.0-0.8) 08/13/17 17:26 Eosinophils # (Manual) 0.0 K/mm3 (0.0-0.4) 08/13/17 17:26 Basophils # (Manual) 0.0 K/mm3 (0.0-0.1) 08/13/17 17:26 Metamyelocytes # 0.0 K/mm3 08/13/17 17:26 Myelocytes # 0.0 K/mm3 08/13/17 17:26 Promyelocytes # 0.0 K/mm3 08/13/17 17:26 Blast Cells # 0.0 K/mm3 08/13/17 17:26 WBC Morphology Not Reportable 08/13/17 17:26 Hypersegmented Neuts Not Reportable 08/13/17 17:26 Hyposegmented Neuts Not Reportable 08/13/17 17:26 Hypogranular Neuts Not Reportable 08/13/17 17:26 Smudge Cells Not Reportable 08/13/17 17:26 Toxic Granulation 1+ 08/13/17 17:26 Toxic Vacuolation Few 08/13/17 17:26 Dohle Bodies Not Reportable 08/13/17 17:26 Pelger-Huet Anomaly Not Reportable 08/13/17 17:26 Kathryn Rods Not Reportable 08/13/17 17:26 Platelet Estimate Cons 08/13/17 17:26 Clumped Platelets Not Reportable 08/13/17 17:26 Plt Clumps, EDTA Not Reportable 08/13/17 17:26 Large Platelets Not Reportable 08/13/17 17:26 Giant Platelets Not Reportable 08/13/17 17:26 Platelet Satelliting Not Reportable 08/13/17 17:26 Plt Morphology Comment Not Reportable 08/13/17 17:26 RBC Morphology Normal 08/13/17 17:26 Dimorphic RBCs Not Reportable 08/13/17 17:26 Polychromasia Not Reportable 08/13/17 17:26 Hypochromasia Not Reportable 08/13/17 17:26 Poikilocytosis Not Reportable 08/13/17 17:26 Anisocytosis Not Reportable 08/13/17 17:26 Microcytosis Not Reportable 08/13/17 17:26 Macrocytosis Not Reportable 08/13/17 17:26 Spherocytes Not Reportable 08/13/17 17:26 Pappenheimer Bodies Not Reportable 08/13/17 17:26 Sickle Cells Not Reportable 08/13/17 17:26 Target Cells Not Reportable 08/13/17 17:26 Tear Drop Cells Not Reportable 08/13/17 17:26 Ovalocytes Not Reportable 08/13/17 17:26 Helmet Cells Not Reportable 08/13/17 17:26 [place] Bodies Not Reportable 08/13/17 17:26 [place] Rings Not Reportable 08/13/17 17:26 [place] Cells Not Reportable 08/13/17 17:26 Bite Cells Not Reportable 08/13/17 17:26 Crenated Cell Not Reportable 08/13/17 17:26 Elliptocytes Not Reportable 08/13/17 17:26 Acanthocytes (Spur) Not Reportable 08/13/17 17:26 Rouleaux Not Reportable 08/13/17 17:26 Hemoglobin C Crystals Not Reportable 08/13/17 17:26 Schistocytes Not Reportable 08/13/17 17:26 Malaria parasites Not Reportable 08/13/17 17:26 [place] Bodies Not Reportable 08/13/17 17:26 Hem Pathologist Commnt No 08/13/17 17:26 PT 16.3 Sec. (12.2-14.9) H 08/13/17 17:26 INR 1.24 (0.87-1.13) H 08/13/17 17:26 APTT 38.3 Sec. (24.2-36.6) H 08/13/17 17:26 VBG pH 7.517 (7.320-7.420) H 08/13/17 17:26 Sodium 142 mmol/L (137-145) 08/14/17 07:39 Potassium 2.8 mmol/L (3.6-5.0) L* 08/14/17 07:39 Chloride 104.4 mmol/L (98-107) 08/14/17 07:39 Carbon Dioxide 19 mmol/L (22-30) L 08/14/17 07:39 Anion Gap 21 mmol/L 08/14/17 07:39 BUN 4 mg/dL (7-17) L 08/14/17 07:39 Creatinine 0.4 mg/dL (0.7-1.2) L 08/14/17 07:39 Estimated GFR > 60 ml/min 08/14/17 07:39 BUN/Creatinine Ratio 10 % 08/14/17 07:39 Glucose 87 mg/dL (65-100) 08/14/17 07:39 Lactic Acid 7.30 mmol/L (0.7-2.0) H* 08/13/17 17:26 Calcium 7.5 mg/dL (8.4-10.2) L 08/14/17 07:39 Magnesium 0.60 mg/dL (1.7-2.3) L* 08/13/17 15:44 Total Bilirubin 1.00 mg/dL (0.1-1.2) 08/13/17 17:26 AST 123 units/L (5-40) H 08/13/17 17:26 ALT 52 units/L (7-56) 08/13/17 17:26 Alkaline Phosphatase 198 units/L (35-129) H 08/13/17 17:26 Total Creatine Kinase 70 units/L (30-135) 08/13/17 17:26 CK-MB (CK-2) 1.6 ng/mL (0.0-4.0) 08/13/17 17:26 CK-MB (CK-2) Rel Index 2.2 (0-4) 08/13/17 17:26 Troponin T < 0.010 ng/mL (0.00-0.029) 08/13/17 17:26 Total Protein 6.2 g/dL (6.3-8.2) L 08/13/17 17:26 Albumin 2.6 g/dL (3.9-5) L 08/13/17 17:26 Albumin/Globulin Ratio 0.7 % 08/13/17 17:26 Lipase 8 units/L (13-60) L 08/13/17 15:44 Urine Color Laura (Yellow) 08/13/17 16:40 Urine Turbidity Slightly-cloudy (Clear) 08/13/17 16:40 Urine pH 6.0 (5.0-7.0) 08/13/17 16:40 Ur Specific [place] 1.016 (1.003-1.030) 08/13/17 16:40 Urine Protein 100 mg/dl mg/dL (Negative) 08/13/17 16:40 Urine Glucose (UA) Neg mg/dL (Negative) 08/13/17 16:40 Urine Ketones Neg mg/dL (Negative) 08/13/17 16:40 Urine Blood Mod (Negative) 08/13/17 16:40 Urine Nitrite Neg (Negative) 08/13/17 16:40 Urine Bilirubin Neg (Negative) 08/13/17 16:40 Urine Urobilinogen 2.0 mg/dL (<2.0) 08/13/17 16:40 Ur Leukocyte Esterase Lg (Negative) 08/13/17 16:40 Urine WBC (Auto) > 182.0 /HPF (0.0-6.0) H 08/13/17 16:40 Urine RBC (Auto) 68.0 /HPF (0.0-6.0) 08/13/17 16:40 U Epithel Cells (Auto) < 1.0 /HPF (0-13.0) 08/13/17 16:40 Urine Bacteria (Auto) 4+ /HPF (Negative) 08/13/17 16:40 Ur Transition Epith Cell 2 /HPF 08/13/17 16:40 Hyaline Casts 1 /LPF 08/13/17 16:40 Urine Mucus Few /HPF 08/13/17 16:40 Urine Opiates Screen Presumptive negative 08/13/17 16:40 Urine Methadone Screen Presumptive negative 08/13/17 16:40 Ur Barbiturates Screen Presumptive negative 08/13/17 16:40 Ur Phencyclidine Scrn Presumptive negative 08/13/17 16:40 Ur Amphetamines Screen Presumptive negative 08/13/17 16:40 U Benzodiazepines Scrn Presumptive negative 08/13/17 16:40 Urine Cocaine Screen Presumptive negative 08/13/17 16:40 U Marijuana (THC) Screen Presumptive positive 08/13/17 16:40 Drugs of Abuse Note Disclamer 08/13/17 16:40 Plasma/Serum Alcohol < 0.01 gm% (0-0.07) 08/13/17 17:26
[2017-08-14 12:08] LABS: Hepatitis A Antibody IgM Non-Reactive (NonReactive); Hepatitis B Core IgM Non-Reactive (NonReactive); Hepatitis B Surface Antigen Non-Reactive (Negative); Hepatitis C Virus Antibody Non-Reactive (NonReactive)
--- NOTE | 2017-08-14 18:21 | Consultation ---
History of Present Illness Consult date: 08/14/17 Requesting physician: JAYNA CALIXTO History of present illness: 56-year-old female with a past medical history hypertension and daily alcohol use presents to the hospital with tachycardia. Patient received adenosine 6 then 12 en route to the hospital without improvement. Patient has 2 daughters at the bedside. Patient has been having nausea, vomiting, and diarrhea today. Patient had a seizure witnessed by them and therefore EMS was called. Patient had generalized shaking, foaming at the mouth, followed by post ictal/ confusion. No previous history of seizures reported. They state the patient does drink alcohol daily and did not have a drink since yesterday. Patient presents extremely tremulous in the ED with tachycardia. Seen and examined. Currently not responding, received a dose of IV lorazepam by the RN just prior to my evaluation of the patient. Vitals, labs, medications, chart reviewed. Medications and Allergies Allergies Allergy/AdvReac Type Severity Reaction Status Date / Time No Known Allergies Allergy Unverified 08/13/17 14:57 Home Medications Medication Instructions Recorded Confirmed Last Taken Type No Known Home Medications [No 08/14/17 08/14/17 Unknown History Reported Home Medications] Active Meds: Active Medications Acetaminophen (Tylenol) 650 mg PO Q4H PRN PRN Reason: Pain MILD(1-3)/Fever >100.5/BRIAN Bisacodyl (Dulcolax) 10 mg AK QDAY PRN PRN Reason: Constipation unrelieved by MOM Famotidine (Pepcid) 20 mg IV BID [facility] Last Admin: 08/14/17 11:14 Dose: 20 mg Piperacillin Sod/Tazobactam Sod (Zosyn/Ns 4.5gm/100ml) 4.5 gm in 100 mls @ 200 mls/hr IV ONCE [facility] Ceftriaxone Sodium 2 gm/ (Sodium Chloride) 20 mls @ 20 mls/10 min IV Q24HR FADY PRN Reason: Protocol Last Admin: 08/14/17 10:50 Dose: 20 mls/10 min Levetiracetam 750 mg/ Sodium (Chloride) 107.5 mls @ 400 mls/hr IV Q12H FADY Last Admin: 08/14/17 08:11 Dose: 400 mls/hr Potassium Chloride/Dextrose/Sod Cl (D5w/0.45% Nacl/Kcl 20 Meq) 20 meq in 1,000 mls @ 125 mls/hr IV DIRECT FADY Last Admin: 08/14/17 08:50 Dose: 125 mls/hr Lorazepam (Ativan) 2 mg IV Q1HR PRN PRN Reason: CIWA-Ar 8-15 Last Admin: 08/14/17 15:48 Dose: 2 mg Lorazepam (Ativan) 4 mg IV Q1HR PRN PRN Reason: CIWA-Ar 16-25 Last Admin: 08/13/17 23:14 Dose: 4 mg Lorazepam (Ativan) 4 mg IV Q15MIN PRN PRN Reason: CIWA-Ar >25 Last Admin: 08/14/17 05:34 Dose: 4 mg Magnesium Hydroxide (Milk Of Magnesia) 30 ml PO Q4H PRN PRN Reason: Constipation Morphine Sulfate (Morphine) 4 mg IV Q4H PRN PRN Reason: Pain , Severe (7-10) Morphine Sulfate (Morphine) 2 mg IV Q4H PRN PRN Reason: Pain, Moderate (4-6) Ondansetron HCl (Zofran) 4 mg IV Q8H PRN PRN Reason: N/V unrelieved by Reglan Oxycodone/Acetaminophen (Percocet 5/325) 1 tab PO Q6H PRN PRN Reason: Pain, Moderate (4-6) Review of Systems ROS unobtainable: due to mental status (acute encephalopathy) Physical Examination Vital signs: Vital Signs Temp Pulse Resp BP Pulse Ox 101.8 F H 152 H 18 121/76 98 08/13/17 14:57 08/13/17 14:57 08/13/17 14:57 08/13/17 14:57 08/13/17 14:57 General appearance: lethargic, appears uncomfortable Eyes: non-icteric ENT: oropharynx moist Neck: supple, no lymphadenopathy, no JVD Effort: mildly labored Ascultation: Bilateral: diminished breath sounds, wheezes Cardiovascular: regular rate and rhythm (tachycardia), other (S1,S2, no murmurs , gallops or rubs) Gastrointestinal: normoactive bowel sounds, soft, non-tender, non-distended Integumentary: normal Extremities: no cyanosis, no edema, pulses normal, no ischemia or petechiae Musculoskeletal: no deformities non-focal exam (withdraws to pain, not following commands) Results - Laboratory Findings CBC and BMP: 08/15/17 22:00 08/20/17 08:00 PT/INR, D-dimer PT 16.3 Sec. (12.2-14.9) H 08/13/17 17:26 INR 1.24 (0.87-1.13) H 08/13/17 17:26 Abnormal lab findings: Abnormal Labs 08/13/17 08/13/17 08/13/17 15:44 16:40 17:26 WBC 23.7 H RBC 3.16 L MCV 105 H MCH 36 H Plt Count 133 L Seg Neuts % (Manual) 90.0 H Lymphocytes % (Manual) 4.0 L Seg Neutrophils # Man 21.3 H Lymphocytes # (Manual) 0.9 L PT INR APTT VBG pH Sodium Potassium Chloride Carbon Dioxide BUN Creatinine Glucose POC Glucose Lactic Acid Calcium Magnesium 0.60 L* AST Alkaline Phosphatase Total Protein Albumin Lipase 8 L Urine WBC (Auto) > 182.0 H 08/13/17 08/13/17 08/13/17 17:26 17:26 17:26 WBC RBC MCV MCH Plt Count Seg Neuts % (Manual) Lymphocytes % (Manual) Seg Neutrophils # Man Lymphocytes # (Manual) PT 16.3 H INR 1.24 H APTT 38.3 H VBG pH Sodium 136 L Potassium 3.2 L Chloride 97.1 L Carbon Dioxide 16 L BUN 5 L Creatinine 0.4 L Glucose 115 H POC Glucose Lactic Acid 7.30 H* Calcium 7.3 L Magnesium AST 123 H Alkaline Phosphatase 198 H Total Protein 6.2 L Albumin 2.6 L Lipase Urine WBC (Auto) 08/13/17 08/14/17 08/14/17 17:26 05:45 07:39 WBC RBC MCV MCH Plt Count Seg Neuts % (Manual) Lymphocytes % (Manual) Seg Neutrophils # Man Lymphocytes # (Manual) PT INR APTT VBG pH 7.517 H Sodium Potassium 3.3 L 2.8 L* Chloride Carbon Dioxide 21 L 19 L BUN 4 L 4 L Creatinine 0.3 L 0.4 L Glucose POC Glucose Lactic Acid Calcium 7.7 L 7.5 L Magnesium AST Alkaline Phosphatase Total Protein Albumin Lipase Urine WBC (Auto) 08/14/17 13:43 WBC RBC MCV MCH Plt Count Seg Neuts % (Manual) Lymphocytes % (Manual) Seg Neutrophils # Man Lymphocytes # (Manual) PT INR APTT VBG pH Sodium Potassium Chloride Carbon Dioxide BUN Creatinine Glucose POC Glucose 121 H Lactic Acid Calcium Magnesium AST Alkaline Phosphatase Total Protein Albumin Lipase Urine WBC (Auto) Assessment and Plan Sepsis Acute encephalopathy Alcohol withdrawal seizure with DTs Hypokalemia Hypomagnesemia Lactic acid acidosis Marijuana abuse Alcohol dependence Delirium tremens UTI (urinary tract infection) Sinus tachycardia Transaminitis -monitor hemodynamics closely - continue aspiration precautions - continue CIWA protocol with Ativan - added prn haldol - magnesium and phosphorus replaced - continue empiric AB's and follow cultures The high probability of a clinically significant, sudden or life threatening deterioration of the [CV, pulmonary,GI ] system(s) required my full and direct attention, intervention and personal management. The aggregate critical care time was [35] minutes. This time is in addition to time spent performing reported procedures but includes the following: [X] Data Review and interpretation [X] Patient assessment and monitoring of vital signs [X] Documentation [X] Medication orders and management
[2017-08-14] MEDS ORDERED: NACL 0.9% 500 ML 500 ML IV ONE (18:48)
[2017-08-14] MEDS ORDERED: TYLENOL PR ONE (21:05)
[2017-08-14 22:00] LABS: Magnesium 1.7 mg/dL (1.7-2.3)
[2017-08-14] MEDS ORDERED: NACL 0.9% 1000 ML 500 ML IV ONE ×2 (22:08→23:07)
--- NOTE | 2017-08-14 23:01 | Procedure Note ---
Date of procedure: 08/14/17 Procedure: central line placement for persistent hypotension - Central Line Placement Right Femoral Consent Obtained: emergent situation Time Out Performed: Yes Patient Placed on Monitor/Pulse Ox: Yes MD Prep: mask, gown, gloves Central Line Prep: Chlorhexidine scrub Local Anesthesia Used: Lidocaine 1% Ultrasound Used for Placement: No Central Line Lumen Inserted: triple Bloods Obtained for Lab: Yes Central Line Position: good blood return, sutured in place with nyl Dressing Applied: Tegaderm Patient Tolerated Procedure: well Complications: none
[2017-08-14] MEDS ORDERED: LEVOPHED DRIP 4 MG/NS 250 ML 4 MG/250 ML BAG IV SCH (23:45)
[2017-08-14] MEDS ORDERED: VANCOMYCIN/NS 1 GM/250 ML 1 GM/250 ML BAG IV SCH (23:45)
[2017-08-15] MEDS ORDERED: MAGNESIUM SULFATE 2GM/50ML 2 GM/50 ML BAG IV ONE (00:11)
[2017-08-15 00:20] LABS: BUN/Creatinine Ratio 10; Blood Urea Nitrogen 5 mg/dL (7-17); Calcium 7.4 mg/dL (8.4-10.2); Hemolysis Index 5
[2017-08-15] MEDS: PEPCID IV SCH ×3 (01:52→23:35)
[2017-08-15] MEDS: KEPPRA 750 MG in NACL 0.9% 100 ML IV SCH ×3 (01:57→20:34)
[2017-08-15] MEDS: ATIVAN IV PRN ×4 (02:26→14:12)
[2017-08-15] MEDS: NACL 0.9% 1000 ML 1,000 ML IV SCH (06:33)
[2017-08-15 08:45] LABS: Hematocrit 33.5 % (30.3-42.9); Hemoglobin 11.3 gm/dl (10.1-14.3); Mean Corpuscular HGB Conc 34 % (30-34); Mean Corpuscular Hemoglobin 36 pg (28-32); Mean Corpuscular Volume 105 fl (79-97); Platelet Count 118 K/mm3 (140-440); Red Blood Count 3.19 M/mm3 (3.65-5.03); Red Cell Distribution Width 13.7 % (13.2-15.2)
[2017-08-15 09:04] LABS: Alanine Aminotransferase 43 units/L (7-56); Albumin 1.9 g/dL (3.9-5); BUN/Creatinine Ratio 25; Blood Urea Nitrogen 5 mg/dL (7-17); Calcium 7.4 mg/dL (8.4-10.2); Hemolysis Index 38
[2017-08-15] MEDS: cefTRIAXone 2 GM in NACL 0.9% 20 ML IV SCH (10:11)
[2017-08-15 10:24] LABS: Band Neutrophils # (Manual) 1.7 K/mm3; Basophils % (Manual) 0 % (0.0-1.8); Eosinophils % (Manual) 0 % (0.0-4.3); Monocytes % (Manual) 0 % (0.0-7.3); Total Cells Counted 100
[2017-08-15 10:25] LABS: Hypochromasia 1+; Target Cells Few
[2017-08-15 10:26] LABS: Dohle Bodies Few; Platelet Estimate Consistent w Auto; Toxic Granulation 1+
[2017-08-15 10:27] LABS: Toxic Vacuolation Few
--- NOTE | 2017-08-15 10:51 | Progress Note ---
Assessment and Plan Sepsis Syndrome EtOH withdrawal with DT's and seizures UTI Transaminitis Hypokalemia Hypomagnesemia Sinus Tachycardia Acute Encephalopathy - continue aspiration precautions - continue CIWA protocol with Ativan - added prn haldol - magnesium and phosphorus replaced - continue empiric AB's and folow cultures Subjective Date of service: 08/15/17 Principal diagnosis: DT's / EtOH Withdrawals Interval history: Patient is seen today for: DT's / EtOH Withdrawal Seen and examined at bedside; 24hour events reviewed; nursing and respiratory care staff consulted; no adverse overnight events reported to me; resting in bed; sedated; mild agitation during my examination; daughter visiting ; no emesis or overt aspiration; no reported seizures today Objective Vital Signs - 12hr 08/14/17 08/14/17 08/14/17 22:53 23:00 23:15 Temperature Pulse Rate 122 H 123 H Respiratory 28 H 30 H Rate Blood Pressure 88/57 97/58 O2 Sat by Pulse 95 99 96 Oximetry 08/14/17 08/14/17 08/14/17 23:31 23:45 23:53 Temperature Pulse Rate 139 H 125 H Respiratory 35 H 24 Rate Blood Pressure 101/68 101/68 O2 Sat by Pulse 94 98 99 Oximetry 08/15/17 08/15/17 08/15/17 00:01 00:15 00:31 Temperature Pulse Rate 125 H 123 H 127 H Respiratory 29 H 23 37 H Rate Blood Pressure 101/68 101/68 101/68 O2 Sat by Pulse 98 97 98 Oximetry 08/15/17 08/15/17 08/15/17 00:45 01:00 01:15 Temperature Pulse Rate 124 H 133 H 129 H Respiratory 26 H 21 32 H Rate Blood Pressure 101/68 95/66 115/75 O2 Sat by Pulse 81 L 98 Oximetry 08/15/17 08/15/17 08/15/17 01:30 01:45 02:00 Temperature Pulse Rate 134 H 121 H 125 H Respiratory 36 H 27 H 27 H Rate Blood Pressure 113/76 110/76 116/76 O2 Sat by Pulse 91 Oximetry 08/15/17 08/15/17 08/15/17 02:15 02:30 02:45 Temperature 98.7 F Pulse Rate 118 H 114 H 111 H Respiratory 41 H 30 H 28 H Rate Blood Pressure 110/74 95/64 85/55 O2 Sat by Pulse 95 97 96 Oximetry 08/15/17 08/15/17 08/15/17 03:00 03:15 03:30 Temperature Pulse Rate 114 H 108 H 111 H Respiratory 35 H 25 H 34 H Rate Blood Pressure 99/67 103/73 106/72 O2 Sat by Pulse 96 97 97 Oximetry 08/15/17 08/15/17 08/15/17 03:45 04:00 04:15 Temperature Pulse Rate 118 H 116 H 112 H Respiratory 14 41 H 29 H Rate Blood Pressure 115/75 116/74 108/70 O2 Sat by Pulse 90 96 99 Oximetry 08/15/17 08/15/17 08/15/17 04:30 04:45 05:00 Temperature Pulse Rate 117 H 140 H 131 H Respiratory 41 H 21 23 Rate Blood Pressure 110/76 135/70 122/80 O2 Sat by Pulse 96 98 93 Oximetry 08/15/17 08/15/17 08/15/17 05:15 05:30 05:45 Temperature Pulse Rate 125 H 124 H 121 H Respiratory 26 H 40 H 18 Rate Blood Pressure 108/75 111/75 108/73 O2 Sat by Pulse 96 97 84 Oximetry 08/15/17 08/15/17 08/15/17 06:00 06:15 06:30 Temperature Pulse Rate 123 H 123 H 121 H Respiratory 43 H 46 H 21 Rate Blood Pressure 108/73 112/74 117/77 O2 Sat by Pulse 94 94 94 Oximetry 08/15/17 08/15/17 08/15/17 06:45 07:00 07:15 Temperature Pulse Rate 126 H 128 H 136 H Respiratory 22 23 19 Rate Blood Pressure 110/83 121/82 101/73 O2 Sat by Pulse 92 96 95 Oximetry 08/15/17 08/15/17 08/15/17 07:26 07:29 07:30 Temperature 98.9 F Pulse Rate 117 H Respiratory 37 H Rate Blood Pressure 114/79 O2 Sat by Pulse 94 96 Oximetry 08/15/17 07:45 Temperature Pulse Rate 114 H Respiratory 34 H Rate Blood Pressure 98/69 O2 Sat by Pulse 98 Oximetry Constitutional: appears uncomfortable, other (delirious) Eyes: icteric ENT: oropharynx moist, oropharyngeal exudate pre, other (no goiter) Neck: supple, no lymphadenopathy, no JVD Effort: mildly labored Ascultation: Bilateral: diminished breath sounds, rhonchi (bases) Percussion: Bilateral: not dull Cardiovascular: regular rate and rhythm (tachycardia), other (no rubs / murmurs) Gastrointestinal: normoactive bowel sounds, soft, non-tender, non-distended, other (No palpable HSM) Integumentary: normal Extremities: no cyanosis, no edema, pulses normal, no ischemia or petechiae Neurologic: unable to assess Psychiatric: other (sedated) CBC and BMP: 08/15/17 08:33 08/15/17 08:33 ABG, PT/INR, D-dimer: ABG POC ABG pH 7.467 (7.35-7.45) H 08/14/17 21:53 POC ABG pCO2 21.7 (35-45) L 08/14/17 21:53 POC ABG pO2 59 (80-105) L 08/14/17 21:53 POC ABG HCO3 15.7 08/14/17 21:53 POC ABG Total CO2 16 08/14/17 21:53 POC ABG O2 Sat 93 08/14/17 21:53 PT/INR, D-dimer PT 16.3 Sec. (12.2-14.9) H 08/13/17 17:26 INR 1.24 (0.87-1.13) H 08/13/17 17:26 Abnormal lab findings: Abnormal Labs 08/13/17 08/13/17 08/13/17 15:44 16:40 17:26 WBC 23.7 H RBC 3.16 L MCV 105 H MCH 36 H Plt Count 133 L Seg Neuts % (Manual) 90.0 H Lymphocytes % (Manual) 4.0 L Seg Neutrophils # Man 21.3 H Lymphocytes # (Manual) 0.9 L PT INR APTT POC ABG pH POC ABG pCO2 POC ABG pO2 VBG pH Sodium Potassium Chloride Carbon Dioxide BUN Creatinine Glucose POC Glucose Lactic Acid Calcium Phosphorus Magnesium 0.60 L* Total Bilirubin AST Alkaline Phosphatase Total Protein Albumin Lipase 8 L Urine WBC (Auto) > 182.0 H 08/13/17 08/13/17 08/13/17 17:26 17:26 17:26 WBC RBC MCV MCH Plt Count Seg Neuts % (Manual) Lymphocytes % (Manual) Seg Neutrophils # Man Lymphocytes # (Manual) PT 16.3 H INR 1.24 H APTT 38.3 H POC ABG pH POC ABG pCO2 POC ABG pO2 VBG pH Sodium 136 L Potassium 3.2 L Chloride 97.1 L Carbon Dioxide 16 L BUN 5 L Creatinine 0.4 L Glucose 115 H POC Glucose Lactic Acid 7.30 H* Calcium 7.3 L Phosphorus Magnesium Total Bilirubin AST 123 H Alkaline Phosphatase 198 H Total Protein 6.2 L Albumin 2.6 L Lipase Urine WBC (Auto) 08/13/17 08/14/17 08/14/17 17:26 05:45 07:39 WBC RBC MCV MCH Plt Count Seg Neuts % (Manual) Lymphocytes % (Manual) Seg Neutrophils # Man Lymphocytes # (Manual) PT INR APTT POC ABG pH POC ABG pCO2 POC ABG pO2 VBG pH 7.517 H Sodium Potassium 3.3 L 2.8 L* Chloride Carbon Dioxide 21 L 19 L BUN 4 L 4 L Creatinine 0.3 L 0.4 L Glucose POC Glucose Lactic Acid Calcium 7.7 L 7.5 L Phosphorus Magnesium Total Bilirubin AST Alkaline Phosphatase Total Protein Albumin Lipase Urine WBC (Auto) 08/14/17 08/14/17 08/14/17 13:43 20:24 21:53 WBC RBC MCV MCH Plt Count Seg Neuts % (Manual) Lymphocytes % (Manual) Seg Neutrophils # Man Lymphocytes # (Manual) PT INR APTT POC ABG pH 7.467 H POC ABG pCO2 21.7 L POC ABG pO2 59 L VBG pH Sodium Potassium 3.3 L Chloride Carbon Dioxide BUN Creatinine Glucose POC Glucose 121 H Lactic Acid Calcium Phosphorus 1.10 L Magnesium Total Bilirubin AST Alkaline Phosphatase Total Protein Albumin Lipase Urine WBC (Auto) 08/14/17 08/15/17 08/15/17 23:43 08:33 08:33 WBC 19.3 H RBC 3.19 L MCV 105 H MCH 36 H Plt Count 118 L Seg Neuts % (Manual) 90.0 H Lymphocytes % (Manual) 1.0 L Seg Neutrophils # Man 17.4 H Lymphocytes # (Manual) 0.2 L PT INR APTT POC ABG pH POC ABG pCO2 POC ABG pO2 VBG pH Sodium Potassium 3.1 L 3.3 L Chloride 109.0 H Carbon Dioxide 20 L 19 L BUN 5 L 5 L Creatinine 0.5 L < 0.2 L D Glucose POC Glucose Lactic Acid Calcium 7.4 L 7.4 L Phosphorus 1.50 L D Magnesium 1.50 L Total Bilirubin 3.40 H AST 90 H Alkaline Phosphatase 160 H Total Protein 5.4 L Albumin 1.9 L Lipase Urine WBC (Auto) Chest x-ray: image reviewed (no focal infiltrate; No PTX) Allied health notes reviewed: nursing
[2017-08-15] MEDS ORDERED: KPHOS 30 MMOL in NACL 0.9% 500 ML 500 ML IV ONE (12:30)
--- NOTE | 2017-08-15 15:20 | Progress Note ---
Assessment and Plan Assessment and plan: 56-year-old female with a past medical history hypertension and daily alcohol use presents to the hospital with tachycardia. Patient received adenosine 6 then 12 en route to the hospital without improvement. Patient has 2 daughters at the bedside. Patient was been having nausea, vomiting, and diarrhea . Patient had a seizure witnessed by them and therefore EMS was called. Patient had generalized shaking, foaming at the mouth, followed by post ictal/ confusion. No previous history of seizures reported. They state the patient does drink alcohol daily and did not have a drink since one day. Sepsis secondary to UTI Obtain urine cultures, follow-up blood cultures, continue antibiotics Delirium tremens Continue CIWA protocol, continue IV fluids, continue folate and the line Derangements of electrolytes Hypokalemia, hypomagnesemia, hypophosphatemia Replete IV and by mouth Seizures due to alcohol withdrawal Replete electrolytes, Keppra twice a day, case discussed with Dr. Vazquez of neurology Alcohol dependence and marijuana dependence We'll claims counsel patients when her mentation is improved Tachycardia Yesterday sinus tachycardia, will repeat 12-lead EKG daily, as I am concerned for atrial tachycardia, also obtain echo and cardiology consult The high probability of a clinically significant, sudden or life threatening deterioration of the [CV, pulmonary,GI ] system(s) required my full and direct attention, intervention and personal management. The aggregate critical care time was [33] minutes. This time is in addition to time spent performing reported procedures but includes the following: [] Data Review and interpretation [] Patient assessment and monitoring of vital signs [] Documentation [] Medication orders and management History Interval history: Patient remains nonresponsive, not had any further seizures, no agitation or vomiting no fevers Nurses relate that her blood pressure has been running low but has not required pressors Hospitalist Physical - Physical exam Narrative exam: General.: Appears well, no distress, nontoxic, disheveled and unkempt HEENT: Moist mucous membranes, extraocular muscles intact, no lymphadenopathy Neck: supple Cardiac: S1-S2 heard Lungs: clear to auscultation bilaterally Abdomen: soft , nontender, nondistended, bowel sounds positive Extremities: no edema clubbing or cyanosis Skin: no rash or lesions Neurologic: Obtunded, nonresponsive, moves extremities and withdraws from pain. - Constitutional Vitals: Temp Pulse Resp BP Pulse Ox 98.9 F 105 H 16 99/68 95 08/15/17 07:26 08/15/17 14:38 08/15/17 14:38 08/15/17 14:38 08/15/17 14:38 General appearance: Present: mild distress, well-nourished Results - Labs CBC & Chem 7: 08/15/17 08:33 08/15/17 08:33 Labs: Laboratory Last Values WBC 19.3 K/mm3 (4.5-11.0) H 08/15/17 08:33 RBC 3.19 M/mm3 (3.65-5.03) L 08/15/17 08:33 Hgb 11.3 gm/dl (10.1-14.3) 08/15/17 08:33 Hct 33.5 % (30.3-42.9) 08/15/17 08:33 MCV 105 fl (79-97) H 08/15/17 08:33 MCH 36 pg (28-32) H 08/15/17 08:33 MCHC 34 % (30-34) 08/15/17 08:33 RDW 13.7 % (13.2-15.2) 08/15/17 08:33 Plt Count 118 K/mm3 (140-440) L 08/15/17 08:33 Add Manual Diff Complete 08/15/17 08:33 Total Counted 100 08/15/17 08:33 Seg Neutrophils % Manager Etl 08/15/17 08:33 Seg Neuts % (Manual) 90.0 % (40.0-70.0) H 08/15/17 08:33 Band Neutrophils % 9.0 % 08/15/17 08:33 Lymphocytes % (Manual) 1.0 % (13.4-35.0) L 08/15/17 08:33 Reactive Lymphs % (Man) 0 % 08/15/17 08:33 Monocytes % (Manual) 0 % (0.0-7.3) 08/15/17 08:33 Eosinophils % (Manual) 0 % (0.0-4.3) 08/15/17 08:33 Basophils % (Manual) 0 % (0.0-1.8) 08/15/17 08:33 Metamyelocytes % 0 % 08/15/17 08:33 Myelocytes % 0 % 08/15/17 08:33 Promyelocytes % 0 % 08/15/17 08:33 Blast Cells % 0 % 08/15/17 08:33 Nucleated RBC % Not Reportable 08/15/17 08:33 Seg Neutrophils # Man 17.4 K/mm3 (1.8-7.7) H 08/15/17 08:33 Band Neutrophils # 1.7 K/mm3 08/15/17 08:33 Lymphocytes # (Manual) 0.2 K/mm3 (1.2-5.4) L 08/15/17 08:33 Abs React Lymphs (Man) 0.0 K/mm3 08/15/17 08:33 Monocytes # (Manual) 0.0 K/mm3 (0.0-0.8) 08/15/17 08:33 Eosinophils # (Manual) 0.0 K/mm3 (0.0-0.4) 08/15/17 08:33 Basophils # (Manual) 0.0 K/mm3 (0.0-0.1) 08/15/17 08:33 Metamyelocytes # 0.0 K/mm3 08/15/17 08:33 Myelocytes # 0.0 K/mm3 08/15/17 08:33 Promyelocytes # 0.0 K/mm3 08/15/17 08:33 Blast Cells # 0.0 K/mm3 08/15/17 08:33 WBC Morphology Not Reportable 08/15/17 08:33 Hypersegmented Neuts Not Reportable 08/15/17 08:33 Hyposegmented Neuts Not Reportable 08/15/17 08:33 Hypogranular Neuts Not Reportable 08/15/17 08:33 Smudge Cells Not Reportable 08/15/17 08:33 Toxic Granulation 1+ 08/15/17 08:33 Toxic Vacuolation Few 08/15/17 08:33 Dohle Bodies Few 08/15/17 08:33 Pelger-Huet Anomaly Not Reportable 08/15/17 08:33 Kathryn Rods Not Reportable 08/15/17 08:33 Platelet Estimate Consistent w auto 08/15/17 08:33 Clumped Platelets Not Reportable 08/15/17 08:33 Plt Clumps, EDTA Not Reportable 08/15/17 08:33 Large Platelets Not Reportable 08/15/17 08:33 Giant Platelets Not Reportable 08/15/17 08:33 Platelet Satelliting Not Reportable 08/15/17 08:33 Plt Morphology Comment Not Reportable 08/15/17 08:33 RBC Morphology Not Reportable 08/15/17 08:33 Dimorphic RBCs Not Reportable 08/15/17 08:33 Polychromasia Not Reportable 08/15/17 08:33 Hypochromasia 1+ 08/15/17 08:33 Poikilocytosis Not Reportable 08/15/17 08:33 Anisocytosis Not Reportable 08/15/17 08:33 Microcytosis Not Reportable 08/15/17 08:33 Macrocytosis Not Reportable 08/15/17 08:33 Spherocytes Not Reportable 08/15/17 08:33 Pappenheimer Bodies Not Reportable 08/15/17 08:33 Sickle Cells Not Reportable 08/15/17 08:33 Target Cells Few 08/15/17 08:33 Tear Drop Cells Not Reportable 08/15/17 08:33 Ovalocytes Not Reportable 08/15/17 08:33 Helmet Cells Not Reportable 08/15/17 08:33 [place] Bodies Not Reportable 08/15/17 08:33 [place] Rings Not Reportable 08/15/17 08:33 Narda Cells Not Reportable 08/15/17 08:33 Bite Cells Not Reportable 08/15/17 08:33 Crenated Cell Not Reportable 08/15/17 08:33 Elliptocytes Not Reportable 08/15/17 08:33 Acanthocytes (Spur) Not Reportable 08/15/17 08:33 Rouleaux Not Reportable 08/15/17 08:33 Hemoglobin C Crystals Not Reportable 08/15/17 08:33 Schistocytes Not Reportable 08/15/17 08:33 Malaria parasites Not Reportable 08/15/17 08:33 [place] Bodies Not Reportable 08/15/17 08:33 Hem Pathologist Commnt No 08/15/17 08:33 PT 16.3 Sec. (12.2-14.9) H 08/13/17 17:26 INR 1.24 (0.87-1.13) H 08/13/17 17:26 APTT 38.3 Sec. (24.2-36.6) H 08/13/17 17:26 POC ABG pH 7.467 (7.35-7.45) H 08/14/17 21:53 POC ABG pCO2 21.7 (35-45) L 08/14/17 21:53 POC ABG pO2 59 (80-105) L 08/14/17 21:53 POC ABG HCO3 15.7 08/14/17 21:53 POC ABG Total CO2 16 08/14/17 21:53 POC ABG O2 Sat 93 08/14/17 21:53 POC ABG Base Excess -8 08/14/17 21:53 VBG pH 7.517 (7.320-7.420) H 08/13/17 17:26 FiO2 50 % 08/14/17 21:53 Sodium 141 mmol/L (137-145) 08/15/17 08:33 Potassium 3.3 mmol/L (3.6-5.0) L 08/15/17 08:33 Chloride 109.0 mmol/L (98-107) H 08/15/17 08:33 Carbon Dioxide 19 mmol/L (22-30) L 08/15/17 08:33 Anion Gap 16 mmol/L 08/15/17 08:33 BUN 5 mg/dL (7-17) L 08/15/17 08:33 Creatinine < 0.2 mg/dL (0.7-1.2) L D 08/15/17 08:33 Estimated GFR > 60 ml/min 08/15/17 08:33 BUN/Creatinine Ratio 25 % 08/15/17 08:33 Glucose 70 mg/dL (65-100) 08/15/17 08:33 POC Glucose 121 (70-105) H 08/14/17 13:43 Lactic Acid 7.30 mmol/L (0.7-2.0) H* 08/13/17 17:26 Calcium 7.4 mg/dL (8.4-10.2) L 08/15/17 08:33 Phosphorus 1.50 mg/dL (2.5-4.5) L D 08/14/17 23:43 Magnesium 1.50 mg/dL (1.7-2.3) L 08/14/17 23:43 Total Bilirubin 3.40 mg/dL (0.1-1.2) H 08/15/17 08:33 AST 90 units/L (5-40) H 08/15/17 08:33 ALT 43 units/L (7-56) 08/15/17 08:33 Alkaline Phosphatase 160 units/L (35-129) H 08/15/17 08:33 Total Creatine Kinase 70 units/L (30-135) 08/13/17 17:26 CK-MB (CK-2) 1.6 ng/mL (0.0-4.0) 08/13/17 17:26 CK-MB (CK-2) Rel Index 2.2 (0-4) 08/13/17 17:26 Troponin T < 0.010 ng/mL (0.00-0.029) 08/13/17 17:26 Total Protein 5.4 g/dL (6.3-8.2) L 08/15/17 08:33 Albumin 1.9 g/dL (3.9-5) L 08/15/17 08:33 Albumin/Globulin Ratio 0.5 % 08/15/17 08:33 Lipase 8 units/L (13-60) L 08/13/17 15:44 Urine Color Laura (Yellow) 08/13/17 16:40 Urine Turbidity Slightly-cloudy (Clear) 08/13/17 16:40 Urine pH 6.0 (5.0-7.0) 08/13/17 16:40 Ur Specific [place] 1.016 (1.003-1.030) 08/13/17 16:40 Urine Protein 100 mg/dl mg/dL (Negative) 08/13/17 16:40 Urine Glucose (UA) Neg mg/dL (Negative) 08/13/17 16:40 Urine Ketones Neg mg/dL (Negative) 08/13/17 16:40 Urine Blood Mod (Negative) 08/13/17 16:40 Urine Nitrite Neg (Negative) 08/13/17 16:40 Urine Bilirubin Neg (Negative) 08/13/17 16:40 Urine Urobilinogen 2.0 mg/dL (<2.0) 08/13/17 16:40 Ur Leukocyte Esterase Lg (Negative) 08/13/17 16:40 Urine WBC (Auto) > 182.0 /HPF (0.0-6.0) H 08/13/17 16:40 Urine RBC (Auto) 68.0 /HPF (0.0-6.0) 08/13/17 16:40 U Epithel Cells (Auto) < 1.0 /HPF (0-13.0) 08/13/17 16:40 Urine Bacteria (Auto) 4+ /HPF (Negative) 08/13/17 16:40 Ur Transition Epith Cell 2 /HPF 08/13/17 16:40 Hyaline Casts 1 /LPF 08/13/17 16:40 Urine Mucus Few /HPF 08/13/17 16:40 Urine Opiates Screen Presumptive negative 08/13/17 16:40 Urine Methadone Screen Presumptive negative 08/13/17 16:40 Ur Barbiturates Screen Presumptive negative 08/13/17 16:40 Ur Phencyclidine Scrn Presumptive negative 08/13/17 16:40 Ur Amphetamines Screen Presumptive negative 08/13/17 16:40 U Benzodiazepines Scrn Presumptive negative 08/13/17 16:40 Urine Cocaine Screen Presumptive negative 08/13/17 16:40 U Marijuana (THC) Screen Presumptive positive 08/13/17 16:40 Drugs of Abuse Note Disclamer 08/13/17 16:40 Plasma/Serum Alcohol < 0.01 gm% (0-0.07) 08/13/17 17:26 Hepatitis A IgM Ab Non-reactive (NonReactive) 08/14/17 Unknown Hep Bs Antigen Non-reactive (Negative) 08/14/17 Unknown Hep B Core IgM Ab Non-reactive (NonReactive) 08/14/17 Unknown Hepatitis C Antibody Non-reactive (NonReactive) 08/14/17 Unknown
[2017-08-15] MEDS ORDERED: HALDOL IV PRN (16:53)
[2017-08-15 22:34] LABS: Basophils % (Auto) 0.2 % (0.0-1.8); Hematocrit 34.9 % (30.3-42.9); Hemoglobin 11.8 gm/dl (10.1-14.3); Lymphocytes # (Auto) 0.9 K/mm3 (1.2-5.4); Lymphocytes % (Auto) 5.1 % (13.4-35.0); Mean Corpuscular HGB Conc 34 % (30-34); Mean Corpuscular Hemoglobin 36 pg (28-32); Mean Corpuscular Volume 107 fl (79-97); Monocytes # (Auto) 1.1 K/mm3 (0.0-0.8); Monocytes % (Auto) 5.9 % (0.0-7.3); Platelet Count 141 K/mm3 (140-440); Red Blood Count 3.28 M/mm3 (3.65-5.03)
[2017-08-16 06:54] LABS: BUN/Creatinine Ratio 20; Blood Urea Nitrogen 4 mg/dL (7-17); Calcium 7.5 mg/dL (8.4-10.2); Hemolysis Index 4
[2017-08-16] MEDS: PEPCID IV SCH ×2 (10:44→21:20)
[2017-08-16] MEDS: FOLVITE PO SCH (10:44)
[2017-08-16] MEDS: VITAMIN B-1 PO SCH (10:44)
[2017-08-16] MEDS: NACL 0.9% 1000 ML 1,000 ML IV SCH (10:45)
[2017-08-16] MEDS: KEPPRA 750 MG in NACL 0.9% 100 ML IV SCH ×2 (10:48→21:19)
[2017-08-16] MEDS: cefTRIAXone 2 GM in NACL 0.9% 20 ML IV SCH (10:49)
--- NOTE | 2017-08-16 11:57 | Consultation ---
History of Present Illness Consult date: 08/16/17 Consult reason: tachycardia History of present illness: This is a 56yr old woman with a reported history of Hypertension and alcohol abuse who was brought to this hospital with palpitations. It's reported patient was given adenosine x2 enroute by EMT. An ECG on presentation is a sinus tachycardia, with motion artifact, rate 166. Patient also noted febrile with a temp of 101.8 a WBC of 23 and magnesium of 0.60 on initial workup. There was no reports of chest pain or shortness of breath. There was no syncope. A cardiac consultation is requested for further evaluation. Medications and Allergies Allergies Allergy/AdvReac Type Severity Reaction Status Date / Time No Known Allergies Allergy Unverified 08/13/17 14:57 Home Medications Medication Instructions Recorded Confirmed Last Taken Type No Known Home Medications [No 08/14/17 08/14/17 Unknown History Reported Home Medications] Active Meds: Active Medications Acetaminophen (Tylenol) 650 mg PO Q4H PRN PRN Reason: Pain MILD(1-3)/Fever >100.5/BRIAN Bisacodyl (Dulcolax) 10 mg OR QDAY PRN PRN Reason: Constipation unrelieved by MOM Famotidine (Pepcid) 20 mg IV BID [facility] Last Admin: 08/16/17 10:44 Dose: 20 mg Folic Acid (Folvite) 1 mg PO QDAY [facility] Last Admin: 08/16/17 10:44 Dose: 1 mg Haloperidol Lactate (Haldol) 5 mg IV Q6H PRN PRN Reason: Agitation Piperacillin Sod/Tazobactam Sod (Zosyn/Ns 4.5gm/100ml) 4.5 gm in 100 mls @ 200 mls/hr IV ONCE FADY Ceftriaxone Sodium 2 gm/ (Sodium Chloride) 20 mls @ 20 mls/10 min IV Q24HR FADY PRN Reason: Protocol Last Admin: 08/16/17 10:49 Dose: 20 mls/10 min Levetiracetam 750 mg/ Sodium (Chloride) 107.5 mls @ 400 mls/hr IV Q12H [facility] Last Admin: 08/16/17 10:48 Dose: 400 mls/hr Norepinephrine (Levophed Drip 4 Mg/Ns 250 Ml) 4 mg in 250 mls @ 7.5 mls/hr IV TITR FADY; 2 MCG/MIN PRN Reason: Protocol Sodium Chloride (Nacl 0.9% 1000 Ml) 1,000 mls @ 150 mls/hr IV DIRECT [facility] Last Admin: 08/16/17 10:45 Dose: 150 mls/hr Lorazepam (Ativan) 2 mg IV Q1HR PRN PRN Reason: CIWA-Ar 8-15 Last Admin: 08/15/17 14:12 Dose: 2 mg Lorazepam (Ativan) 4 mg IV Q1HR PRN PRN Reason: CIWA-Ar 16-25 Last Admin: 08/13/17 23:14 Dose: 4 mg Lorazepam (Ativan) 4 mg IV Q15MIN PRN PRN Reason: CIWA-Ar >25 Last Admin: 08/15/17 10:35 Dose: 4 mg Magnesium Hydroxide (Milk Of Magnesia) 30 ml PO Q4H PRN PRN Reason: Constipation Morphine Sulfate (Morphine) 4 mg IV Q4H PRN PRN Reason: Pain , Severe (7-10) Morphine Sulfate (Morphine) 2 mg IV Q4H PRN PRN Reason: Pain, Moderate (4-6) Ondansetron HCl (Zofran) 4 mg IV Q8H PRN PRN Reason: N/V unrelieved by Reglan Oxycodone/Acetaminophen (Percocet 5/325) 1 tab PO Q6H PRN PRN Reason: Pain, Moderate (4-6) Thiamine HCl (Vitamin B-1) 100 mg PO QDAY [facility] Last Admin: 08/16/17 10:44 Dose: 100 mg Physical Examination Vital Signs Temp Pulse Resp BP Pulse Ox 101.8 F H 152 H 18 121/76 98 08/13/17 14:57 08/13/17 14:57 08/13/17 14:57 08/13/17 14:57 08/13/17 14:57 General appearance: no acute distress Cardiac: Positive: Tachycardia Results 08/15/17 22:00 08/16/17 05:30 CBC 08/15/17 Range/Units 22:00 WBC 18.1 H (4.5-11.0) K/mm3 RBC 3.28 L (3.65-5.03) M/mm3 Hgb 11.8 (10.1-14.3) gm/dl Hct 34.9 (30.3-42.9) % Plt Count 141 (140-440) K/mm3 Lymph # 0.9 L (1.2-5.4) K/mm3 [place] # 1.1 H (0.0-0.8) K/mm3 Eos # 0.0 (0.0-0.4) K/mm3 Baso # 0.0 (0.0-0.1) K/mm3 Comprehensive Metabolic Panel 08/16/17 Range/Units 05:30 Sodium 147 H (137-145) mmol/L Potassium 2.7 L* (3.6-5.0) mmol/L Chloride 110.3 H (98-107) mmol/L Carbon Dioxide 17 L (22-30) mmol/L BUN 4 L (7-17) mg/dL Creatinine 0.2 L (0.7-1.2) mg/dL Glucose 50 L (65-100) mg/dL Calcium 7.5 L (8.4-10.2) mg/dL Assessment and Plan Sepsis UTI Alcohol withdrawal with delirium tremors Hypokalemia/Hypomagnesemia Reflex Sinus tachycardia
[2017-08-16] MEDS ORDERED: KPHOS 45 MMOL in NACL 0.9% 500 ML 500 ML IV ONE (13:36)
[2017-08-16] MEDS ORDERED: MAGNESIUM SULFATE 4GM/100ML 4 GM/100 ML BAG IV ONE (13:36)
[2017-08-16] MEDS ORDERED: KCL 20 MEQ in D5NS 0.2% 1,000 ML IV SCH (13:45)
--- NOTE | 2017-08-16 13:46 | Progress Note ---
Assessment and Plan Assessment and plan: 56-year-old female with a past medical history hypertension and daily alcohol use presents to the hospital with tachycardia. Patient received adenosine 6 then 12 en route to the hospital without improvement. Patient has 2 daughters at the bedside. Patient was been having nausea, vomiting, and diarrhea . Patient had a seizure witnessed by them and therefore EMS was called. Patient had generalized shaking, foaming at the mouth, followed by post ictal/ confusion. No previous history of seizures reported. They state the patient does drink alcohol daily and did not have a drink since one day. Sepsis secondary to UTI urine cx was contaminated, follow-up blood cultures, continue antibiotics, and rx empirically Delirium tremens Continue CIWA protocol, continue IV fluids, continue folate and B1 Derangements of electrolytes Hypokalemia, hypomagnesemia, hypophosphatemia Replete IV and by mouth Seizures due to alcohol withdrawal, and hypomagnesemia Replete electrolytes, Keppra twice a day, case discussed with Dr. Vazquez of neurology Alcohol dependence and marijuana dependence We'll diet counselor patients when her mentation is improved Tachycardia case dw cardiology, fup echo, consistent with sinus tachycardia and requires no further workup Acute toxic and metabolic encephalopathy -clinically improving, case dw neurologist The high probability of a clinically significant, sudden or life threatening deterioration of the [CV, pulmonary,GI ] system(s) required my full and direct attention, intervention and personal management. The aggregate critical care time was [33] minutes. This time is in addition to time spent performing reported procedures but includes the following: [] Data Review and interpretation [] Patient assessment and monitoring of vital signs [] Documentation [] Medication orders and management History Interval history: still confused, not agitated Review of systems Constitutional: No fevers CVS: No chest pain, no orthopnea, no dyspnea on exertion, no pedal edema GI: No abdominal pain, no diarrhea, no vomiting, no constipation Respiratory: No shortness of breath, no wheezing, no coughing Hospitalist Physical - Physical exam Narrative exam: General.: Appears well, no distress, nontoxic, disheveled and unkempt HEENT: Moist mucous membranes, extraocular muscles intact, no lymphadenopathy Neck: supple Cardiac: S1-S2 heard Lungs: clear to auscultation bilaterally Abdomen: soft , nontender, nondistended, bowel sounds positive Extremities: no edema clubbing or cyanosis Skin: no rash or lesions Neurologic: confused, knows her name, but is otherwise mumbling incoherently, moves all extremities - Constitutional Vitals: Temp Pulse Resp BP Pulse Ox 97.9 F 111 H 20 128/89 87 08/16/17 12:11 08/16/17 12:11 08/16/17 12:11 08/16/17 12:11 08/16/17 12:11 General appearance: Present: no acute distress Results - Labs CBC & Chem 7: 08/15/17 22:00 08/16/17 05:30 Labs: Laboratory Last Values WBC 18.1 K/mm3 (4.5-11.0) H 08/15/17 22:00 RBC 3.28 M/mm3 (3.65-5.03) L 08/15/17 22:00 Hgb 11.8 gm/dl (10.1-14.3) 08/15/17 22:00 Hct 34.9 % (30.3-42.9) 08/15/17 22:00 MCV 107 fl (79-97) H 08/15/17 22:00 MCH 36 pg (28-32) H 08/15/17 22:00 MCHC 34 % (30-34) 08/15/17 22:00 RDW 14.0 % (13.2-15.2) 08/15/17 22:00 Plt Count 141 K/mm3 (140-440) 08/15/17 22:00 Lymph % (Auto) 5.1 % (13.4-35.0) L 08/15/17 22:00 [place] % (Auto) 5.9 % (0.0-7.3) 08/15/17 22:00 Eos % (Auto) 0.0 % (0.0-4.3) 08/15/17 22:00 Baso % (Auto) 0.2 % (0.0-1.8) 08/15/17 22:00 Lymph # 0.9 K/mm3 (1.2-5.4) L 08/15/17 22:00 [place] # 1.1 K/mm3 (0.0-0.8) H 08/15/17 22:00 Eos # 0.0 K/mm3 (0.0-0.4) 08/15/17 22:00 Baso # 0.0 K/mm3 (0.0-0.1) 08/15/17 22:00 Add Manual Diff Complete 08/15/17 08:33 Total Counted 100 08/15/17 08:33 Seg Neutrophils % 88.8 % (40.0-70.0) H 08/15/17 22:00 Seg Neuts % (Manual) 90.0 % (40.0-70.0) H 08/15/17 08:33 Band Neutrophils % 9.0 % 08/15/17 08:33 Lymphocytes % (Manual) 1.0 % (13.4-35.0) L 08/15/17 08:33 Reactive Lymphs % (Man) 0 % 08/15/17 08:33 Monocytes % (Manual) 0 % (0.0-7.3) 08/15/17 08:33 Eosinophils % (Manual) 0 % (0.0-4.3) 08/15/17 08:33 Basophils % (Manual) 0 % (0.0-1.8) 08/15/17 08:33 Metamyelocytes % 0 % 08/15/17 08:33 Myelocytes % 0 % 08/15/17 08:33 Promyelocytes % 0 % 08/15/17 08:33 Blast Cells % 0 % 08/15/17 08:33 Nucleated RBC % Not Reportable 08/15/17 08:33 Seg Neutrophils # 16.1 K/mm3 (1.8-7.7) H 08/15/17 22:00 Seg Neutrophils # Man 17.4 K/mm3 (1.8-7.7) H 08/15/17 08:33 Band Neutrophils # 1.7 K/mm3 08/15/17 08:33 Lymphocytes # (Manual) 0.2 K/mm3 (1.2-5.4) L 08/15/17 08:33 Abs React Lymphs (Man) 0.0 K/mm3 08/15/17 08:33 Monocytes # (Manual) 0.0 K/mm3 (0.0-0.8) 08/15/17 08:33 Eosinophils # (Manual) 0.0 K/mm3 (0.0-0.4) 08/15/17 08:33 Basophils # (Manual) 0.0 K/mm3 (0.0-0.1) 08/15/17 08:33 Metamyelocytes # 0.0 K/mm3 08/15/17 08:33 Myelocytes # 0.0 K/mm3 08/15/17 08:33 Promyelocytes # 0.0 K/mm3 08/15/17 08:33 Blast Cells # 0.0 K/mm3 08/15/17 08:33 WBC Morphology Not Reportable 08/15/17 08:33 Hypersegmented Neuts Not Reportable 08/15/17 08:33 Hyposegmented Neuts Not Reportable 08/15/17 08:33 Hypogranular Neuts Not Reportable 08/15/17 08:33 Smudge Cells Not Reportable 08/15/17 08:33 Toxic Granulation 1+ 08/15/17 08:33 Toxic Vacuolation Few 08/15/17 08:33 Dohle Bodies Few 08/15/17 08:33 Pelger-Huet Anomaly Not Reportable 08/15/17 08:33 Kathryn Rods Not Reportable 08/15/17 08:33 Platelet Estimate Consistent w auto 08/15/17 08:33 Clumped Platelets Not Reportable 08/15/17 08:33 Plt Clumps, EDTA Not Reportable 08/15/17 08:33 Large Platelets Not Reportable 08/15/17 08:33 Giant Platelets Not Reportable 08/15/17 08:33 Platelet Satelliting Not Reportable 08/15/17 08:33 Plt Morphology Comment Not Reportable 08/15/17 08:33 RBC Morphology Not Reportable 08/15/17 08:33 Dimorphic RBCs Not Reportable 08/15/17 08:33 Polychromasia Not Reportable 08/15/17 08:33 Hypochromasia 1+ 08/15/17 08:33 Poikilocytosis Not Reportable 08/15/17 08:33 Anisocytosis Not Reportable 08/15/17 08:33 Microcytosis Not Reportable 08/15/17 08:33 Macrocytosis Not Reportable 08/15/17 08:33 Spherocytes Not Reportable 08/15/17 08:33 Pappenheimer Bodies Not Reportable 08/15/17 08:33 Sickle Cells Not Reportable 08/15/17 08:33 Target Cells Few 08/15/17 08:33 Tear Drop Cells Not Reportable 08/15/17 08:33 Ovalocytes Not Reportable 08/15/17 08:33 Helmet Cells Not Reportable 08/15/17 08:33 [place] Bodies Not Reportable 08/15/17 08:33 [place] Rings Not Reportable 08/15/17 08:33 Narda Cells Not Reportable 08/15/17 08:33 Bite Cells Not Reportable 08/15/17 08:33 Crenated Cell Not Reportable 08/15/17 08:33 Elliptocytes Not Reportable 08/15/17 08:33 Acanthocytes (Spur) Not Reportable 08/15/17 08:33 Rouleaux Not Reportable 08/15/17 08:33 Hemoglobin C Crystals Not Reportable 08/15/17 08:33 Schistocytes Not Reportable 08/15/17 08:33 Malaria parasites Not Reportable 08/15/17 08:33 Eugene Bodies Not Reportable 08/15/17 08:33 Hem Pathologist Commnt No 08/15/17 08:33 PT 16.3 Sec. (12.2-14.9) H 08/13/17 17:26 INR 1.24 (0.87-1.13) H 08/13/17 17:26 APTT 38.3 Sec. (24.2-36.6) H 08/13/17 17:26 POC ABG pH 7.467 (7.35-7.45) H 08/14/17 21:53 POC ABG pCO2 21.7 (35-45) L 08/14/17 21:53 POC ABG pO2 59 (80-105) L 08/14/17 21:53 POC ABG HCO3 15.7 08/14/17 21:53 POC ABG Total CO2 16 08/14/17 21:53 POC ABG O2 Sat 93 08/14/17 21:53 POC ABG Base Excess -8 08/14/17 21:53 VBG pH 7.517 (7.320-7.420) H 08/13/17 17:26 FiO2 50 % 08/14/17 21:53 Sodium 147 mmol/L (137-145) H 08/16/17 05:30 Potassium 2.7 mmol/L (3.6-5.0) L* 08/16/17 05:30 Chloride 110.3 mmol/L (98-107) H 08/16/17 05:30 Carbon Dioxide 17 mmol/L (22-30) L 08/16/17 05:30 Anion Gap 22 mmol/L 08/16/17 05:30 BUN 4 mg/dL (7-17) L 08/16/17 05:30 Creatinine 0.2 mg/dL (0.7-1.2) L 08/16/17 05:30 Estimated GFR > 60 ml/min 08/16/17 05:30 BUN/Creatinine Ratio 20 % 08/16/17 05:30 Glucose 50 mg/dL (65-100) L 08/16/17 05:30 POC Glucose 121 (70-105) H 08/14/17 13:43 Lactic Acid 7.30 mmol/L (0.7-2.0) H* 08/13/17 17:26 Calcium 7.5 mg/dL (8.4-10.2) L 08/16/17 05:30 Phosphorus 1.50 mg/dL (2.5-4.5) L 08/16/17 05:30 Magnesium 1.20 mg/dL (1.7-2.3) L 08/16/17 05:30 Total Bilirubin 3.40 mg/dL (0.1-1.2) H 08/15/17 08:33 AST 90 units/L (5-40) H 08/15/17 08:33 ALT 43 units/L (7-56) 08/15/17 08:33 Alkaline Phosphatase 160 units/L (35-129) H 08/15/17 08:33 Total Creatine Kinase 70 units/L (30-135) 08/13/17 17:26 CK-MB (CK-2) 1.6 ng/mL (0.0-4.0) 08/13/17 17:26 CK-MB (CK-2) Rel Index 2.2 (0-4) 08/13/17 17:26 Troponin T < 0.010 ng/mL (0.00-0.029) 08/13/17 17:26 Total Protein 5.4 g/dL (6.3-8.2) L 08/15/17 08:33 Albumin 1.9 g/dL (3.9-5) L 08/15/17 08:33 Albumin/Globulin Ratio 0.5 % 08/15/17 08:33 Lipase 8 units/L (13-60) L 08/13/17 15:44 Urine Color Laura (Yellow) 08/13/17 16:40 Urine Turbidity Slightly-cloudy (Clear) 08/13/17 16:40 Urine pH 6.0 (5.0-7.0) 08/13/17 16:40 Ur Specific Anthon 1.016 (1.003-1.030) 08/13/17 16:40 Urine Protein 100 mg/dl mg/dL (Negative) 08/13/17 16:40 Urine Glucose (UA) Neg mg/dL (Negative) 08/13/17 16:40 Urine Ketones Neg mg/dL (Negative) 08/13/17 16:40 Urine Blood Mod (Negative) 08/13/17 16:40 Urine Nitrite Neg (Negative) 08/13/17 16:40 Urine Bilirubin Neg (Negative) 08/13/17 16:40 Urine Urobilinogen 2.0 mg/dL (<2.0) 08/13/17 16:40 Ur Leukocyte Esterase Lg (Negative) 08/13/17 16:40 Urine WBC (Auto) > 182.0 /HPF (0.0-6.0) H 08/13/17 16:40 Urine RBC (Auto) 68.0 /HPF (0.0-6.0) 08/13/17 16:40 U Epithel Cells (Auto) < 1.0 /HPF (0-13.0) 08/13/17 16:40 Urine Bacteria (Auto) 4+ /HPF (Negative) 08/13/17 16:40 Ur Transition Epith Cell 2 /HPF 08/13/17 16:40 Hyaline Casts 1 /LPF 08/13/17 16:40 Urine Mucus Few /HPF 08/13/17 16:40 Urine Opiates Screen Presumptive negative 08/13/17 16:40 Urine Methadone Screen Presumptive negative 08/13/17 16:40 Ur Barbiturates Screen Presumptive negative 08/13/17 16:40 Ur Phencyclidine Scrn Presumptive negative 08/13/17 16:40 Ur Amphetamines Screen Presumptive negative 08/13/17 16:40 U Benzodiazepines Scrn Presumptive negative 08/13/17 16:40 Urine Cocaine Screen Presumptive negative 08/13/17 16:40 U Marijuana (THC) Screen Presumptive positive 08/13/17 16:40 Drugs of Abuse Note Disclamer 08/13/17 16:40 Plasma/Serum Alcohol < 0.01 gm% (0-0.07) 08/13/17 17:26 Hepatitis A IgM Ab Non-reactive (NonReactive) 08/14/17 Unknown Hep Bs Antigen Non-reactive (Negative) 08/14/17 Unknown Hep B Core IgM Ab Non-reactive (NonReactive) 08/14/17 Unknown Hepatitis C Antibody Non-reactive (NonReactive) 08/14/17 Unknown
--- NOTE | 2017-08-16 13:53 | Consultation ---
History of Present Illness - Reason for Consult Consult date: 08/16/17 Reason for consult: Mental Health Evalutaion Requesting physician: LOLA CANALES - Chief Complaint Chief complaint: "Patient is nonverbal" - History of Present Psychiatric Illness 56-year-old female with a past medical history hypertension and daily alcohol use presents to the hospital with tachycardia. Today patient is lethargic and nonverbal during the assessment. She would only open her eyes to the sternal rub. Per the record, her family may have observed a seizure by the patient, so she was brought to [facility]. A complete psy assessment of this patient was unsuccessful. No gestures of SI/HI's Medications and Allergies Allergies Allergy/AdvReac Type Severity Reaction Status Date / Time No Known Allergies Allergy Unverified 08/13/17 14:57 Home Medications Medication Instructions Recorded Confirmed Last Taken Type No Known Home Medications [No 08/14/17 08/14/17 Unknown History Reported Home Medications] Active Meds: Active Medications Acetaminophen (Tylenol) 650 mg PO Q4H PRN PRN Reason: Pain MILD(1-3)/Fever >100.5/BRIAN Bisacodyl (Dulcolax) 10 mg [place] QDAY PRN PRN Reason: Constipation unrelieved by MOM Famotidine (Pepcid) 20 mg IV BID [facility] Last Admin: 08/16/17 10:44 Dose: 20 mg Folic Acid (Folvite) 1 mg PO QDAY [facility] Last Admin: 08/16/17 10:44 Dose: 1 mg Haloperidol Lactate (Haldol) 5 mg IV Q6H PRN PRN Reason: Agitation Ceftriaxone Sodium 2 gm/ (Sodium Chloride) 20 mls @ 20 mls/10 min IV Q24HR [facility] PRN Reason: Protocol Last Admin: 08/16/17 10:49 Dose: 20 mls/10 min Levetiracetam 750 mg/ Sodium (Chloride) 107.5 mls @ 400 mls/hr IV Q12H [facility] Last Admin: 08/16/17 10:48 Dose: 400 mls/hr Magnesium Sulfate (Magnesium Sulfate 4gm/100ml) 4 gm in 100 mls @ 25 mls/hr IV ONCE ONE Stop: 08/16/17 17:35 Potassium Phosphate 45 mmol/ (Sodium Chloride) 515 mls @ 85 mls/hr IV ONCE ONE Stop: 08/16/17 19:39 Potassium Chloride 20 meq/ (Dextrose/Sodium Chloride) 1,010 mls @ 125 mls/hr IV DIRECT FADY Lorazepam (Ativan) 2 mg IV Q1HR PRN PRN Reason: CIWA-Ar 8-15 Last Admin: 08/15/17 14:12 Dose: 2 mg Lorazepam (Ativan) 4 mg IV Q1HR PRN PRN Reason: CIWA-Ar 16-25 Last Admin: 08/13/17 23:14 Dose: 4 mg Lorazepam (Ativan) 4 mg IV Q15MIN PRN PRN Reason: CIWA-Ar >25 Last Admin: 08/15/17 10:35 Dose: 4 mg Magnesium Hydroxide (Milk Of Magnesia) 30 ml PO Q4H PRN PRN Reason: Constipation Magnesium Oxide (Mag-Ox) 400 mg PO QDAY [facility] Morphine Sulfate (Morphine) 4 mg IV Q4H PRN PRN Reason: Pain , Severe (7-10) Morphine Sulfate (Morphine) 2 mg IV Q4H PRN PRN Reason: Pain, Moderate (4-6) Ondansetron HCl (Zofran) 4 mg IV Q8H PRN PRN Reason: N/V unrelieved by Reglan Oxycodone/Acetaminophen (Percocet 5/325) 1 tab PO Q6H PRN PRN Reason: Pain, Moderate (4-6) Sodium Phosphate (K-Phos Neutral) 250 mg PO QID [facility] Thiamine HCl (Vitamin B-1) 100 mg PO QDAY [facility] Last Admin: 08/16/17 10:44 Dose: 100 mg Past psychiatric history - Past Medical History Past Medical History: other (Unable to obtain) Past Surgical History: Other (Unable to obtain) - past Psychiatric treatment and history psychiatric treatment history: Unable to obtain a psy hx and a fam psy hx. - Social History Social history: lives with family Mental Status Exam - Vital signs Last Vital Signs Temp 97.9 F 08/16/17 12:11 Pulse 111 H 08/16/17 12:11 Resp 20 08/16/17 12:11 BP 128/89 08/16/17 12:11 Pulse Ox 87 08/16/17 12:11 - Exam Narrative exam: Unable to complete the MSE because of patient medical condition. Results Result Diagrams: 08/15/17 22:00 08/16/17 05:30 Abnormal lab results 08/15/17 08/16/17 Range/Units 22:00 05:30 WBC 18.1 H (4.5-11.0) K/mm3 RBC 3.28 L (3.65-5.03) M/mm3 MCV 107 H (79-97) fl MCH 36 H (28-32) pg Lymph % (Auto) 5.1 L (13.4-35.0) % Lymph # 0.9 L (1.2-5.4) K/mm3 [place] # 1.1 H (0.0-0.8) K/mm3 Seg Neutrophils % 88.8 H (40.0-70.0) % Seg Neutrophils # 16.1 H (1.8-7.7) K/mm3 Sodium 147 H (137-145) mmol/L Potassium 2.7 L* (3.6-5.0) mmol/L Chloride 110.3 H (98-107) mmol/L Carbon Dioxide 17 L (22-30) mmol/L BUN 4 L (7-17) mg/dL Creatinine 0.2 L (0.7-1.2) mg/dL Glucose 50 L (65-100) mg/dL Calcium 7.5 L (8.4-10.2) mg/dL Phosphorus 1.50 L (2.5-4.5) mg/dL Magnesium 1.20 L (1.7-2.3) mg/dL All other labs normal. Assessment and Plan Assessment and plan: Impression: Per the record, the patient has a hx of alcoholism. Today patient is lethargic and nonverbal during the assessment. Patient is in restraints. Medical: Sepsis secondary to UTI Recommendation/Plan: Use Ativan per CIWA only. Gather collateral information and reassess in 24 hours. Ammonia ordered. Recommend the following delirium precautions: 1. Frequently reorient patient and involve him/her in their care (simple explanations of procedures, tests, medications). 2. Lights on and shades open during daytime hours. 3. Try to avoid unnecessary interruptions to sleep during nighttime hours. 4. Obtain glasses, hearing aids from home if patient uses these at baseline. 5. Avoid medications that may exacerbate delirium (especially narcotics, barbiturates, ambien, lunesta, benzos, and medications with excessive anticholinergic properties). Recommend an alternative medications for pain if possible. 6. Continue 1:1 sitter for safety. 7. D/C restraints when not indicated. 8. Use Haldol 5 mg IM Q6hrs PRN for acute agitation.
[2017-08-16] MEDS ORDERED: HALDOL IM PRN (14:00)
[2017-08-16] MEDS: MAG-OX PO SCH (16:37)
--- NOTE | 2017-08-16 17:43 | Event Note ---
Date: 08/16/17 PULMONARY NOTE Patient admitted for alcohol with drawl. Patient was seen and examined. Patient resting on 3 litres O2. No respiratory distress. O2 saturation 99% on 3 litres O2. Chest xray no pulmonary infiltrates. No definit pulmonary problem at this time. Signing off the case. If any pulmonary help needed call us back.
[2017-08-16] MEDS: K-PHOS NEUTRAL PO SCH ×2 (18:31→21:20)
[2017-08-17 06:18] LABS: BUN/Creatinine Ratio 7; Blood Urea Nitrogen 2 mg/dL (7-17); Calcium 7.6 mg/dL (8.4-10.2); Hemolysis Index 4
[2017-08-17] MEDS ORDERED: KCL 20MEQ/100ML 20 MEQ/100 ML BAG IV SCH (07:00)
[2017-08-17] MEDS ORDERED: MAGNESIUM SULFATE 4GM/100ML 4 GM/100 ML BAG IV ONE ×2 (08:30→22:00)
[2017-08-17] MEDS: KCL 10MEQ/100ML 10 MEQ/100 ML BAG IV SCH ×5 (08:58→23:34)
[2017-08-17] MEDS: D5W/0.45% NACL/KCL 40 MEQ 40 MEQ/1,000 ML BAG IV SCH (08:59)
[2017-08-17] MEDS ORDERED: KPHOS 45 MMOL in NACL 0.9% 500 ML 500 ML IV ONE (09:00)
[2017-08-17] MEDS: KEPPRA 750 MG in NACL 0.9% 100 ML IV SCH ×2 (09:48→23:34)
[2017-08-17] MEDS: MAG-OX PO SCH (09:49)
[2017-08-17] MEDS: PEPCID IV SCH ×2 (09:49→23:35)
[2017-08-17] MEDS: FOLVITE PO SCH (09:49)
[2017-08-17] MEDS: VITAMIN B-1 PO SCH (09:49)
[2017-08-17] MEDS: cefTRIAXone 2 GM in NACL 0.9% 20 ML IV SCH (09:54)
--- NOTE | 2017-08-17 10:03 | Progress Note ---
Subjective - Reason for Consult Consult date: 08/17/17 Reason for consult: Psychiatry Follow-up - Chief Complaint Chief complaint: "Patient mumkait" 56-year-old female with a past medical history hypertension and daily alcohol use presents to the hospital with tachycardia. Today patient is lethargic during the assessment. When she was asked her name, she mumbles, but opened her eyes. Per the notes, no behavioral disturbance overnight. No gestures of SI/HI' s. Per collateral from her daughter Alexei Aj at [phone] stated that her mother has been drinking alcohol (etoh) for 20 plus years. She stated that her mother last drink was 08/12/2017. She stated that they have a family hx of alcoholism. She denies that her mother has a mental health hx other than alcohol abuse. She stated that her mother would benefit from outpatient rehab services once discharged. Mental Status Exam - Vital signs Last Vital Signs Temp 98.6 F 08/17/17 07:24 Pulse 94 H 08/17/17 07:24 Resp 16 08/17/17 07:24 BP 138/86 08/17/17 07:24 Pulse Ox 96 08/17/17 07:59 - Exam Narrative exam: Unable to complete the MSE because of patient medical condition. Assessment and Plan Impression: Per the record, the patient has a hx of alcoholism. Today patient is lethargic during the assessment. assessment. Medical: Sepsis secondary to UTI Recommendation/Plan: Continue to assess the need for CIWA daily. Will continue to assess patient daily. Recommend outpatient rehab services when discharged. Recommend the following delirium precautions: 1. Frequently reorient patient and involve him/her in their care (simple explanations of procedures, tests, medications). 2. Lights on and shades open during daytime hours. 3. Try to avoid unnecessary interruptions to sleep during nighttime hours. 4. Obtain glasses, hearing aids from home if patient uses these at baseline. 5. Avoid medications that may exacerbate delirium (especially narcotics, barbiturates, ambien, lunesta, benzos, and medications with excessive anticholinergic properties). Recommend an alternative medications for pain if possible. 6. Recommend 1:1 sitter for safety. 7. D/C restraints when not indicated. 8. Use Haldol 5 mg IM Q6hrs PRN for acute agitation.
[2017-08-17] MEDS: K-PHOS NEUTRAL PO SCH ×5 (10:58→23:40)
--- NOTE | 2017-08-17 11:11 | Progress Note ---
Assessment and Plan Assessment and plan: 56-year-old female with a past medical history hypertension and daily alcohol use presents to the hospital with tachycardia. Patient received adenosine 6 then 12 en route to the hospital without improvement. Patient has 2 daughters at the bedside. Patient was been having nausea, vomiting, and diarrhea . Patient had a seizure witnessed by them and therefore EMS was called. Patient had generalized shaking, foaming at the mouth, followed by post ictal/ confusion. No previous history of seizures reported. They state the patient does drink alcohol daily and did not have a drink since one day. Sepsis secondary to UTI urine cx was contaminated, follow-up blood cultures, continue antibiotics, and rx empirically Delirium tremens Continue CIWA protocol, continue IV fluids, continue folate and B1 Derangements of electrolytes Hypokalemia, hypomagnesemia, hypophosphatemia Replete IV and by mouth Seizures due to alcohol withdrawal, and hypomagnesemia Replete electrolytes, Keppra twice a day, case discussed with Dr. Vazquez of neurology Alcohol dependence and marijuana dependence counseled on cessation, CM to provide outpatient resources Tachycardia case dw cardiology, fup echo, consistent with sinus tachycardia and requires no further workup Acute toxic and metabolic encephalopathy -clinically improving, case dw neurologist -[facility] no acute findings, NH3 level wnl Daughter; Alexei Aj at [phone] History Interval history: still confused, not agitated Review of systems Constitutional: No fevers CVS: No chest pain, no orthopnea, no dyspnea on exertion, no pedal edema GI: No abdominal pain, no diarrhea, no vomiting, no constipation Respiratory: No shortness of breath, no wheezing, no coughing Hospitalist Physical - Physical exam Narrative exam: General.: Appears well, no distress, nontoxic, disheveled and unkempt HEENT: Moist mucous membranes, extraocular muscles intact, no lymphadenopathy Neck: supple Cardiac: S1-S2 heard Lungs: clear to auscultation bilaterally Abdomen: soft , nontender, nondistended, bowel sounds positive Extremities: no edema clubbing or cyanosis Skin: no rash or lesions Neurologic: confused, knows her name, knows she is in the hospital, but mumbling - Constitutional Vitals: Temp Pulse Resp BP Pulse Ox 98.6 F 94 H 16 138/86 96 08/17/17 07:24 08/17/17 07:24 08/17/17 07:24 08/17/17 07:24 08/17/17 07:59 General appearance: Present: no acute distress Results - Labs CBC & Chem 7: 08/15/17 22:00 08/17/17 05:42 Labs: Laboratory Last Values WBC 18.1 K/mm3 (4.5-11.0) H 08/15/17 22:00 RBC 3.28 M/mm3 (3.65-5.03) L 08/15/17 22:00 Hgb 11.8 gm/dl (10.1-14.3) 08/15/17 22:00 Hct 34.9 % (30.3-42.9) 08/15/17 22:00 MCV 107 fl (79-97) H 08/15/17 22:00 MCH 36 pg (28-32) H 08/15/17 22:00 MCHC 34 % (30-34) 08/15/17 22:00 RDW 14.0 % (13.2-15.2) 08/15/17 22:00 Plt Count 141 K/mm3 (140-440) 08/15/17 22:00 Lymph % (Auto) 5.1 % (13.4-35.0) L 08/15/17 22:00 [place] % (Auto) 5.9 % (0.0-7.3) 08/15/17 22:00 Eos % (Auto) 0.0 % (0.0-4.3) 08/15/17 22:00 Baso % (Auto) 0.2 % (0.0-1.8) 08/15/17 22:00 Lymph # 0.9 K/mm3 (1.2-5.4) L 08/15/17 22:00 [place] # 1.1 K/mm3 (0.0-0.8) H 08/15/17 22:00 Eos # 0.0 K/mm3 (0.0-0.4) 08/15/17 22:00 Baso # 0.0 K/mm3 (0.0-0.1) 08/15/17 22:00 Add Manual Diff Complete 08/15/17 08:33 Total Counted 100 08/15/17 08:33 Seg Neutrophils % 88.8 % (40.0-70.0) H 08/15/17 22:00 Seg Neuts % (Manual) 90.0 % (40.0-70.0) H 08/15/17 08:33 Band Neutrophils % 9.0 % 08/15/17 08:33 Lymphocytes % (Manual) 1.0 % (13.4-35.0) L 08/15/17 08:33 Reactive Lymphs % (Man) 0 % 08/15/17 08:33 Monocytes % (Manual) 0 % (0.0-7.3) 08/15/17 08:33 Eosinophils % (Manual) 0 % (0.0-4.3) 08/15/17 08:33 Basophils % (Manual) 0 % (0.0-1.8) 08/15/17 08:33 Metamyelocytes % 0 % 08/15/17 08:33 Myelocytes % 0 % 08/15/17 08:33 Promyelocytes % 0 % 08/15/17 08:33 Blast Cells % 0 % 08/15/17 08:33 Nucleated RBC % Not Reportable 08/15/17 08:33 Seg Neutrophils # 16.1 K/mm3 (1.8-7.7) H 08/15/17 22:00 Seg Neutrophils # Man 17.4 K/mm3 (1.8-7.7) H 08/15/17 08:33 Band Neutrophils # 1.7 K/mm3 08/15/17 08:33 Lymphocytes # (Manual) 0.2 K/mm3 (1.2-5.4) L 08/15/17 08:33 Abs React Lymphs (Man) 0.0 K/mm3 08/15/17 08:33 Monocytes # (Manual) 0.0 K/mm3 (0.0-0.8) 08/15/17 08:33 Eosinophils # (Manual) 0.0 K/mm3 (0.0-0.4) 08/15/17 08:33 Basophils # (Manual) 0.0 K/mm3 (0.0-0.1) 08/15/17 08:33 Metamyelocytes # 0.0 K/mm3 08/15/17 08:33 Myelocytes # 0.0 K/mm3 08/15/17 08:33 Promyelocytes # 0.0 K/mm3 08/15/17 08:33 Blast Cells # 0.0 K/mm3 08/15/17 08:33 WBC Morphology Not Reportable 08/15/17 08:33 Hypersegmented Neuts Not Reportable 08/15/17 08:33 Hyposegmented Neuts Not Reportable 08/15/17 08:33 Hypogranular Neuts Not Reportable 08/15/17 08:33 Smudge Cells Not Reportable 08/15/17 08:33 Toxic Granulation 1+ 08/15/17 08:33 Toxic Vacuolation Few 08/15/17 08:33 Dohle Bodies Few 08/15/17 08:33 Pelger-Huet Anomaly Not Reportable 08/15/17 08:33 Kathryn Rods Not Reportable 08/15/17 08:33 Platelet Estimate Consistent w auto 08/15/17 08:33 Clumped Platelets Not Reportable 08/15/17 08:33 Plt Clumps, EDTA Not Reportable 08/15/17 08:33 Large Platelets Not Reportable 08/15/17 08:33 Giant Platelets Not Reportable 08/15/17 08:33 Platelet Satelliting Not Reportable 08/15/17 08:33 Plt Morphology Comment Not Reportable 08/15/17 08:33 RBC Morphology Not Reportable 08/15/17 08:33 Dimorphic RBCs Not Reportable 08/15/17 08:33 Polychromasia Not Reportable 08/15/17 08:33 Hypochromasia 1+ 08/15/17 08:33 Poikilocytosis Not Reportable 08/15/17 08:33 Anisocytosis Not Reportable 08/15/17 08:33 Microcytosis Not Reportable 08/15/17 08:33 Macrocytosis Not Reportable 08/15/17 08:33 Spherocytes Not Reportable 08/15/17 08:33 Pappenheimer Bodies Not Reportable 08/15/17 08:33 Sickle Cells Not Reportable 08/15/17 08:33 Target Cells Few 08/15/17 08:33 Tear Drop Cells Not Reportable 08/15/17 08:33 Ovalocytes Not Reportable 08/15/17 08:33 Helmet Cells Not Reportable 08/15/17 08:33 [place] Bodies Not Reportable 08/15/17 08:33 [place] Rings Not Reportable 08/15/17 08:33 [place] Cells Not Reportable 08/15/17 08:33 Bite Cells Not Reportable 08/15/17 08:33 Crenated Cell Not Reportable 08/15/17 08:33 Elliptocytes Not Reportable 08/15/17 08:33 Acanthocytes (Spur) Not Reportable 08/15/17 08:33 Rouleaux Not Reportable 08/15/17 08:33 Hemoglobin C Crystals Not Reportable 08/15/17 08:33 Schistocytes Not Reportable 08/15/17 08:33 Malaria parasites Not Reportable 08/15/17 08:33 [place] Bodies Not Reportable 08/15/17 08:33 Hem Pathologist Commnt No 08/15/17 08:33 PT 16.3 Sec. (12.2-14.9) H 08/13/17 17:26 INR 1.24 (0.87-1.13) H 08/13/17 17:26 APTT 38.3 Sec. (24.2-36.6) H 08/13/17 17:26 POC ABG pH 7.467 (7.35-7.45) H 08/14/17 21:53 POC ABG pCO2 21.7 (35-45) L 08/14/17 21:53 POC ABG pO2 59 (80-105) L 08/14/17 21:53 POC ABG HCO3 15.7 08/14/17 21:53 POC ABG Total CO2 16 08/14/17 21:53 POC ABG O2 Sat 93 08/14/17 21:53 POC ABG Base Excess -8 08/14/17 21:53 VBG pH 7.517 (7.320-7.420) H 08/13/17 17:26 FiO2 50 % 08/14/17 21:53 Sodium 142 mmol/L (137-145) 08/17/17 05:42 Potassium 2.5 mmol/L (3.6-5.0) L* 08/17/17 05:42 Chloride 103.4 mmol/L (98-107) 08/17/17 05:42 Carbon Dioxide 26 mmol/L (22-30) D 08/17/17 05:42 Anion Gap 15 mmol/L 08/17/17 05:42 BUN 2 mg/dL (7-17) L 08/17/17 05:42 Creatinine 0.3 mg/dL (0.7-1.2) L 08/17/17 05:42 Estimated GFR > 60 ml/min 08/17/17 05:42 BUN/Creatinine Ratio 7 % 08/17/17 05:42 Glucose 114 mg/dL (65-100) H 08/17/17 05:42 POC Glucose 121 (70-105) H 08/14/17 13:43 Lactic Acid 1.60 mmol/L (0.7-2.0) 08/16/17 15:15 Calcium 7.6 mg/dL (8.4-10.2) L 08/17/17 05:42 Phosphorus 1.70 mg/dL (2.5-4.5) L 08/17/17 05:42 Magnesium 1.30 mg/dL (1.7-2.3) L 08/17/17 05:42 Total Bilirubin 3.40 mg/dL (0.1-1.2) H 08/15/17 08:33 AST 90 units/L (5-40) H 08/15/17 08:33 ALT 43 units/L (7-56) 08/15/17 08:33 Alkaline Phosphatase 160 units/L (35-129) H 08/15/17 08:33 Ammonia 37.0 umol/L (25-60) 08/16/17 15:15 Total Creatine Kinase 70 units/L (30-135) 08/13/17 17:26 CK-MB (CK-2) 1.6 ng/mL (0.0-4.0) 08/13/17 17:26 CK-MB (CK-2) Rel Index 2.2 (0-4) 08/13/17 17:26 Troponin T < 0.010 ng/mL (0.00-0.029) 08/13/17 17:26 Total Protein 5.4 g/dL (6.3-8.2) L 08/15/17 08:33 Albumin 1.9 g/dL (3.9-5) L 08/15/17 08:33 Albumin/Globulin Ratio 0.5 % 08/15/17 08:33 Lipase 8 units/L (13-60) L 08/13/17 15:44 Urine Color [place] (Yellow) 08/13/17 16:40 Urine Turbidity Slightly-cloudy (Clear) 08/13/17 16:40 Urine pH 6.0 (5.0-7.0) 08/13/17 16:40 Ur Specific [place] 1.016 (1.003-1.030) 08/13/17 16:40 Urine Protein 100 mg/dl mg/dL (Negative) 08/13/17 16:40 Urine Glucose (UA) Neg mg/dL (Negative) 08/13/17 16:40 Urine Ketones Neg mg/dL (Negative) 08/13/17 16:40 Urine Blood Mod (Negative) 08/13/17 16:40 Urine Nitrite Neg (Negative) 08/13/17 16:40 Urine Bilirubin Neg (Negative) 08/13/17 16:40 Urine Urobilinogen 2.0 mg/dL (<2.0) 08/13/17 16:40 Ur Leukocyte Esterase Lg (Negative) 08/13/17 16:40 Urine WBC (Auto) > 182.0 /HPF (0.0-6.0) H 08/13/17 16:40 Urine RBC (Auto) 68.0 /HPF (0.0-6.0) 08/13/17 16:40 U Epithel Cells (Auto) < 1.0 /HPF (0-13.0) 08/13/17 16:40 Urine Bacteria (Auto) 4+ /HPF (Negative) 08/13/17 16:40 Ur Transition Epith Cell 2 /HPF 08/13/17 16:40 Hyaline Casts 1 /LPF 08/13/17 16:40 Urine Mucus Few /HPF 08/13/17 16:40 Urine Opiates Screen Presumptive negative 08/13/17 16:40 Urine Methadone Screen Presumptive negative 08/13/17 16:40 Ur Barbiturates Screen Presumptive negative 08/13/17 16:40 Ur Phencyclidine Scrn Presumptive negative 08/13/17 16:40 Ur Amphetamines Screen Presumptive negative 08/13/17 16:40 U Benzodiazepines Scrn Presumptive negative 08/13/17 16:40 Urine Cocaine Screen Presumptive negative 08/13/17 16:40 U Marijuana (THC) Screen Presumptive positive 08/13/17 16:40 Drugs of Abuse Note Disclamer 08/13/17 16:40 Plasma/Serum Alcohol < 0.01 gm% (0-0.07) 08/13/17 17:26 Hepatitis A IgM Ab Non-reactive (NonReactive) 08/14/17 Unknown Hep Bs Antigen Non-reactive (Negative) 08/14/17 Unknown Hep B Core IgM Ab Non-reactive (NonReactive) 08/14/17 Unknown Hepatitis C Antibody Non-reactive (NonReactive) 08/14/17 Unknown - Imaging and Cardiology CT Scan - head: image reviewed (no acute path)
--- NOTE | 2017-08-17 12:12 | Progress Note ---
Assessment and Plan Sepsis UTI Alcohol withdrawal with delirium tremors Hypokalemia/Hypomagnesemia Reflex Sinus tachycardia Recommend: Continue current therapy. Subjective Date of service: 08/17/17 Principal diagnosis: DT's / EtOH Withdrawals Interval history: Pt remains confused, somnolent Objective Vital Signs Temp Pulse Resp BP Pulse Ox 08/17/17 07:59 96 08/17/17 07:24 98.6 F 94 H 16 138/86 98 08/17/17 04:50 98.0 F 104 H 20 122/83 89 08/16/17 23:48 100.0 F H 105 H 21 126/93 96 08/16/17 22:00 96 H 14 96 08/16/17 19:12 100.6 F H 115 H 20 122/81 97 08/16/17 19:10 14 08/16/17 17:26 98.2 F 110 H 20 123/85 97 08/16/17 16:39 90 08/16/17 14:00 96 - Physical Examination General: No Apparent Distress Cardiac: Positive: Reg Rate and Rhythm Lungs: Positive: clear to auscultation Abdomen: Positive: Soft, Active Bowel Sounds Skin: Positive: Clear Extremities: Absent: edema - Labs and Meds Comprehensive Metabolic Panel 08/17/17 Range/Units 05:42 Sodium 142 (137-145) mmol/L Potassium 2.5 L* (3.6-5.0) mmol/L Chloride 103.4 (98-107) mmol/L Carbon Dioxide 26 D (22-30) mmol/L BUN 2 L (7-17) mg/dL Creatinine 0.3 L (0.7-1.2) mg/dL Glucose 114 H (65-100) mg/dL Calcium 7.6 L (8.4-10.2) mg/dL - Imaging and Cardiology EKG: report reviewed (Sinus Tach 166) - Allied health notes Allied health notes reviewed: nursing
--- NOTE | 2017-08-17 15:45 | Cat Scan Report ---
FINAL REPORT EXAM: CT HEAD/BRAIN WO CON HISTORY: ams TECHNIQUE: CT examination of the head without IV contrast PRIORS: 08/13/2017 FINDINGS: Complete opacification of visible portion of right maxillary sinus. There is slight mucosal thickening in the frontal, ethmoid, sphenoid, and right maxillary sinuses. Clear mastoid air cells and middle ear cavities. Small fluid level in right sphenoid sinus is nonspecific. Bone windows demonstrate no acute fracture. There is ventricular and sulcal prominence compatible with global cerebrocortical atrophy. The brain contains no mass, mass effect, hemorrhage, or acute infarct. There is no extra-axial intracranial bleed, brain bleed, or midline shift. IMPRESSION: No acute CVA, intracranial bleed, or brain mass Paranasal sinus disease. Small fluid level in right sphenoid sinus may reflect acute sinusitis
[2017-08-17 19:11] LABS: Magnesium 1.6 mg/dL (1.7-2.3)
[2017-08-18] MEDS: KCL 10MEQ/100ML 10 MEQ/100 ML BAG IV SCH ×3 (00:38→03:17)
[2017-08-18] MEDS: ATIVAN IV PRN ×2 (01:58→12:01)
[2017-08-18 07:11] LABS: BUN/Creatinine Ratio 10; Blood Urea Nitrogen 2 mg/dL (7-17); Calcium 8.1 mg/dL (8.4-10.2); Hemolysis Index 20
--- NOTE | 2017-08-18 08:56 | Progress Note ---
Assessment and Plan Assessment and plan: 56-year-old female with a past medical history hypertension and daily alcohol use presents to the hospital with tachycardia. Patient received adenosine 6 then 12 en route to the hospital without improvement. Patient has 2 daughters at the bedside. Patient was been having nausea, vomiting, and diarrhea . Patient had a seizure witnessed by them and therefore EMS was called. Patient had generalized shaking, foaming at the mouth, followed by post ictal/ confusion. No previous history of seizures reported. They state the patient does drink alcohol daily and did not have a drink since one day. Sepsis secondary to UTI urine cx was contaminated, follow-up blood cultures, continue antibiotics, and rx empirically Delirium tremens Continue CIWA protocol, continue IV fluids, continue folate and B1 Derangements of electrolytes Hypokalemia, hypomagnesemia, hypophosphatemia Replete IV and by mouth Seizures due to alcohol withdrawal, and hypomagnesemia Replete electrolytes, Keppra twice a day, case discussed with Dr. Vazquez of neurology Alcohol dependence and marijuana dependence counseled on cessation, CM to provide outpatient resources Tachycardia case dw cardiology, fup echo, consistent with sinus tachycardia and requires no further workup Acute toxic and metabolic enceph alopathy -clinically improving, case dw neurologist -[facility] no acute findings, NH3 level wnl Daughter; Alexei Aj at [phone] History Interval history: still confused, not agitated Review of systems Constitutional: No fevers CVS: No chest pain, no orthopnea, no dyspnea on exertion, no pedal edema GI: No abdominal pain, no diarrhea, no vomiting, no constipation Respiratory: No shortness of breath, no wheezing, no coughing Hospitalist Physical - Physical exam Narrative exam: General.: Appears well, no distress, nontoxic, disheveled and unkempt HEENT: Moist mucous membranes, extraocular muscles intact, no lymphadenopathy Neck: supple Cardiac: S1-S2 heard Lungs: clear to auscultation bilaterally Abdomen: soft , nontender, nondistended, bowel sounds positive Extremities: no edema clubbing or cyanosis Skin: no rash or lesions Neurologic: confused, knows her name, knows she is in the hospital, but mumbling - Constitutional Vitals: Temp Pulse Resp BP Pulse Ox 98.4 F 112 H 18 126/86 96 08/18/17 04:35 08/18/17 04:35 08/18/17 04:35 08/18/17 04:35 08/18/17 04:35 General appearance: Present: no acute distress Results - Labs CBC & Chem 7: 08/15/17 22:00 08/18/17 05:20 Labs: Laboratory Last Values WBC 18.1 K/mm3 (4.5-11.0) H 08/15/17 22:00 RBC 3.28 M/mm3 (3.65-5.03) L 08/15/17 22:00 Hgb 11.8 gm/dl (10.1-14.3) 08/15/17 22:00 Hct 34.9 % (30.3-42.9) 08/15/17 22:00 MCV 107 fl (79-97) H 08/15/17 22:00 MCH 36 pg (28-32) H 08/15/17 22:00 MCHC 34 % (30-34) 08/15/17 22:00 RDW 14.0 % (13.2-15.2) 08/15/17 22:00 Plt Count 141 K/mm3 (140-440) 08/15/17 22:00 Lymph % (Auto) 5.1 % (13.4-35.0) L 08/15/17 22:00 [place] % (Auto) 5.9 % (0.0-7.3) 08/15/17 22:00 Eos % (Auto) 0.0 % (0.0-4.3) 08/15/17 22:00 Baso % (Auto) 0.2 % (0.0-1.8) 08/15/17 22:00 Lymph # 0.9 K/mm3 (1.2-5.4) L 08/15/17 22:00 [place] # 1.1 K/mm3 (0.0-0.8) H 08/15/17 22:00 Eos # 0.0 K/mm3 (0.0-0.4) 08/15/17 22:00 Baso # 0.0 K/mm3 (0.0-0.1) 08/15/17 22:00 Add Manual Diff Complete 08/15/17 08:33 Total Counted 100 08/15/17 08:33 Seg Neutrophils % 88.8 % (40.0-70.0) H 08/15/17 22:00 Seg Neuts % (Manual) 90.0 % (40.0-70.0) H 08/15/17 08:33 Band Neutrophils % 9.0 % 08/15/17 08:33 Lymphocytes % (Manual) 1.0 % (13.4-35.0) L 08/15/17 08:33 Reactive Lymphs % (Man) 0 % 08/15/17 08:33 Monocytes % (Manual) 0 % (0.0-7.3) 08/15/17 08:33 Eosinophils % (Manual) 0 % (0.0-4.3) 08/15/17 08:33 Basophils % (Manual) 0 % (0.0-1.8) 08/15/17 08:33 Metamyelocytes % 0 % 08/15/17 08:33 Myelocytes % 0 % 08/15/17 08:33 Promyelocytes % 0 % 08/15/17 08:33 Blast Cells % 0 % 08/15/17 08:33 Nucleated RBC % Not Reportable 08/15/17 08:33 Seg Neutrophils # 16.1 K/mm3 (1.8-7.7) H 08/15/17 22:00 Seg Neutrophils # Man 17.4 K/mm3 (1.8-7.7) H 08/15/17 08:33 Band Neutrophils # 1.7 K/mm3 08/15/17 08:33 Lymphocytes # (Manual) 0.2 K/mm3 (1.2-5.4) L 08/15/17 08:33 Abs React Lymphs (Man) 0.0 K/mm3 08/15/17 08:33 Monocytes # (Manual) 0.0 K/mm3 (0.0-0.8) 08/15/17 08:33 Eosinophils # (Manual) 0.0 K/mm3 (0.0-0.4) 08/15/17 08:33 Basophils # (Manual) 0.0 K/mm3 (0.0-0.1) 08/15/17 08:33 Metamyelocytes # 0.0 K/mm3 08/15/17 08:33 Myelocytes # 0.0 K/mm3 08/15/17 08:33 Promyelocytes # 0.0 K/mm3 08/15/17 08:33 Blast Cells # 0.0 K/mm3 08/15/17 08:33 WBC Morphology Not Reportable 08/15/17 08:33 Hypersegmented Neuts Not Reportable 08/15/17 08:33 Hyposegmented Neuts Not Reportable 08/15/17 08:33 Hypogranular Neuts Not Reportable 08/15/17 08:33 Smudge Cells Not Reportable 08/15/17 08:33 Toxic Granulation 1+ 08/15/17 08:33 Toxic Vacuolation Few 08/15/17 08:33 Dohle Bodies Few 08/15/17 08:33 Pelger-Huet Anomaly Not Reportable 08/15/17 08:33 Kathryn Rods Not Reportable 08/15/17 08:33 Platelet Estimate Consistent w auto 08/15/17 08:33 Clumped Platelets Not Reportable 08/15/17 08:33 Plt Clumps, EDTA Not Reportable 08/15/17 08:33 Large Platelets Not Reportable 08/15/17 08:33 Giant Platelets Not Reportable 08/15/17 08:33 Platelet Satelliting Not Reportable 08/15/17 08:33 Plt Morphology Comment Not Reportable 08/15/17 08:33 RBC Morphology Not Reportable 08/15/17 08:33 Dimorphic RBCs Not Reportable 08/15/17 08:33 Polychromasia Not Reportable 08/15/17 08:33 Hypochromasia 1+ 08/15/17 08:33 Poikilocytosis Not Reportable 08/15/17 08:33 Anisocytosis Not Reportable 08/15/17 08:33 Microcytosis Not Reportable 08/15/17 08:33 Macrocytosis Not Reportable 08/15/17 08:33 Spherocytes Not Reportable 08/15/17 08:33 Pappenheimer Bodies Not Reportable 08/15/17 08:33 Sickle Cells Not Reportable 08/15/17 08:33 Target Cells Few 08/15/17 08:33 Tear Drop Cells Not Reportable 08/15/17 08:33 Ovalocytes Not Reportable 08/15/17 08:33 Helmet Cells Not Reportable 08/15/17 08:33 [place] Bodies Not Reportable 08/15/17 08:33 [place] Rings Not Reportable 08/15/17 08:33 [place] Cells Not Reportable 08/15/17 08:33 Bite Cells Not Reportable 08/15/17 08:33 Crenated Cell Not Reportable 08/15/17 08:33 Elliptocytes Not Reportable 08/15/17 08:33 Acanthocytes (Spur) Not Reportable 08/15/17 08:33 Rouleaux Not Reportable 08/15/17 08:33 Hemoglobin C Crystals Not Reportable 08/15/17 08:33 Schistocytes Not Reportable 08/15/17 08:33 Malaria parasites Not Reportable 08/15/17 08:33 [place] Bodies Not Reportable 08/15/17 08:33 Hem Pathologist Commnt No 08/15/17 08:33 PT 16.3 Sec. (12.2-14.9) H 08/13/17 17:26 INR 1.24 (0.87-1.13) H 08/13/17 17:26 APTT 38.3 Sec. (24.2-36.6) H 08/13/17 17:26 POC ABG pH 7.467 (7.35-7.45) H 08/14/17 21:53 POC ABG pCO2 21.7 (35-45) L 08/14/17 21:53 POC ABG pO2 59 (80-105) L 08/14/17 21:53 POC ABG HCO3 15.7 08/14/17 21:53 POC ABG Total CO2 16 08/14/17 21:53 POC ABG O2 Sat 93 08/14/17 21:53 POC ABG Base Excess -8 08/14/17 21:53 VBG pH 7.517 (7.320-7.420) H 08/13/17 17:26 FiO2 50 % 08/14/17 21:53 Sodium 143 mmol/L (137-145) 08/18/17 05:20 Potassium 3.3 mmol/L (3.6-5.0) L 08/18/17 05:20 Chloride 101.5 mmol/L (98-107) 08/18/17 05:20 Carbon Dioxide 28 mmol/L (22-30) 08/18/17 05:20 Anion Gap 17 mmol/L 08/18/17 05:20 BUN 2 mg/dL (7-17) L 08/18/17 05:20 Creatinine 0.2 mg/dL (0.7-1.2) L 08/18/17 05:20 Estimated GFR > 60 ml/min 08/18/17 05:20 BUN/Creatinine Ratio 10 % 08/18/17 05:20 Glucose 85 mg/dL (65-100) 08/18/17 05:20 POC Glucose 121 (70-105) H 08/14/17 13:43 Lactic Acid 1.60 mmol/L (0.7-2.0) 08/16/17 15:15 Calcium 8.1 mg/dL (8.4-10.2) L 08/18/17 05:20 Phosphorus 1.90 mg/dL (2.5-4.5) L D 08/18/17 05:20 Magnesium 1.60 mg/dL (1.7-2.3) L 08/17/17 18:38 Total Bilirubin 3.40 mg/dL (0.1-1.2) H 08/15/17 08:33 AST 90 units/L (5-40) H 08/15/17 08:33 ALT 43 units/L (7-56) 08/15/17 08:33 Alkaline Phosphatase 160 units/L (35-129) H 08/15/17 08:33 Ammonia 37.0 umol/L (25-60) 08/16/17 15:15 Total Creatine Kinase 70 units/L (30-135) 08/13/17 17:26 CK-MB (CK-2) 1.6 ng/mL (0.0-4.0) 08/13/17 17:26 CK-MB (CK-2) Rel Index 2.2 (0-4) 08/13/17 17:26 Troponin T < 0.010 ng/mL (0.00-0.029) 08/13/17 17:26 Total Protein 5.4 g/dL (6.3-8.2) L 08/15/17 08:33 Albumin 1.9 g/dL (3.9-5) L 08/15/17 08:33 Albumin/Globulin Ratio 0.5 % 08/15/17 08:33 Lipase 8 units/L (13-60) L 08/13/17 15:44 Urine Color Laura (Yellow) 08/13/17 16:40 Urine Turbidity Slightly-cloudy (Clear) 08/13/17 16:40 Urine pH 6.0 (5.0-7.0) 08/13/17 16:40 Ur Specific [place] 1.016 (1.003-1.030) 08/13/17 16:40 Urine Protein 100 mg/dl mg/dL (Negative) 08/13/17 16:40 Urine Glucose (UA) Neg mg/dL (Negative) 08/13/17 16:40 Urine Ketones Neg mg/dL (Negative) 08/13/17 16:40 Urine Blood Mod (Negative) 08/13/17 16:40 Urine Nitrite Neg (Negative) 08/13/17 16:40 Urine Bilirubin Neg (Negative) 08/13/17 16:40 Urine Urobilinogen 2.0 mg/dL (<2.0) 08/13/17 16:40 Ur Leukocyte Esterase Lg (Negative) 08/13/17 16:40 Urine WBC (Auto) > 182.0 /HPF (0.0-6.0) H 08/13/17 16:40 Urine RBC (Auto) 68.0 /HPF (0.0-6.0) 08/13/17 16:40 U Epithel Cells (Auto) < 1.0 /HPF (0-13.0) 08/13/17 16:40 Urine Bacteria (Auto) 4+ /HPF (Negative) 08/13/17 16:40 Ur Transition Epith Cell 2 /HPF 08/13/17 16:40 Hyaline Casts 1 /LPF 08/13/17 16:40 Urine Mucus Few /HPF 08/13/17 16:40 Urine Opiates Screen Presumptive negative 08/13/17 16:40 Urine Methadone Screen Presumptive negative 08/13/17 16:40 Ur Barbiturates Screen Presumptive negative 08/13/17 16:40 Ur Phencyclidine Scrn Presumptive negative 08/13/17 16:40 Ur Amphetamines Screen Presumptive negative 08/13/17 16:40 U Benzodiazepines Scrn Presumptive negative 08/13/17 16:40 Urine Cocaine Screen Presumptive negative 08/13/17 16:40 U Marijuana (THC) Screen Presumptive positive 08/13/17 16:40 Drugs of Abuse Note Disclamer 08/13/17 16:40 Plasma/Serum Alcohol < 0.01 gm% (0-0.07) 08/13/17 17:26 Hepatitis A IgM Ab Non-reactive (NonReactive) 08/14/17 Unknown Hep Bs Antigen Non-reactive (Negative) 08/14/17 Unknown Hep B Core IgM Ab Non-reactive (NonReactive) 08/14/17 Unknown Hepatitis C Antibody Non-reactive (NonReactive) 08/14/17 Unknown
[2017-08-18] MEDS: KEPPRA 750 MG in NACL 0.9% 100 ML IV SCH (09:00)
[2017-08-18] MEDS: PERCOCET 5/325 PO PRN ×2 (09:01→15:45)
[2017-08-18] MEDS: FOLVITE PO SCH (09:01)
[2017-08-18] MEDS: K-PHOS NEUTRAL PO SCH ×4 (09:01→21:55)
[2017-08-18] MEDS: VITAMIN B-1 PO SCH (09:01)
[2017-08-18] MEDS: MAG-OX PO SCH (09:01)
[2017-08-18] MEDS: PEPCID IV SCH (09:02)
[2017-08-18] MEDS: cefTRIAXone 2 GM in NACL 0.9% 20 ML IV SCH (09:04)
[2017-08-18] MEDS ORDERED: KPHOS 45 MMOL in NACL 0.9% 500 ML 500 ML IV ONE (10:00)
--- NOTE | 2017-08-18 12:30 | Progress Note ---
Assessment and Plan Sepsis UTI Alcohol withdrawal with delirium tremors Hypokalemia/Hypomagnesemia Reflex Sinus tachycardia Recommend: Continue current therapy. Subjective Date of service: 08/18/17 Principal diagnosis: DT's / EtOH Withdrawals Interval history: Pt more awake today. She denies chest pain or dyspnea Objective Vital Signs Temp Pulse Resp BP BP Pulse Ox 08/18/17 10:32 98.6 F 102 H 20 123/83 98 08/18/17 10:00 112 H 08/18/17 09:07 96 08/18/17 04:35 98.4 F 112 H 18 126/86 96 08/17/17 23:43 98.3 F 103 H 18 128/92 95 08/17/17 22:00 16 08/17/17 20:02 98.0 F 109 H 18 196/112 96 08/17/17 19:57 97.8 F 108 H 18 117/79 98 08/17/17 16:27 98.1 F 102 H 18 121/79 97 - Physical Examination General: No Apparent Distress Neck: Positive: trachea midline Cardiac: Positive: Reg Rate and Rhythm Lungs: Positive: clear to auscultation Abdomen: Positive: Soft, Active Bowel Sounds Skin: Positive: Clear Extremities: Absent: edema - Labs and Meds Comprehensive Metabolic Panel 08/17/17 08/18/17 Range/Units 18:38 05:20 Sodium 143 (137-145) mmol/L Potassium 2.9 L* 3.3 L (3.6-5.0) mmol/L Chloride 101.5 (98-107) mmol/L Carbon Dioxide 28 (22-30) mmol/L BUN 2 L (7-17) mg/dL Creatinine 0.2 L (0.7-1.2) mg/dL Glucose 85 (65-100) mg/dL Calcium 8.1 L (8.4-10.2) mg/dL - Imaging and Cardiology EKG: report reviewed (Sinus Tach 166) - Allied health notes Allied health notes reviewed: nursing
[2017-08-18] MEDS: D5W/0.45% NACL/KCL 40 MEQ 40 MEQ/1,000 ML BAG IV SCH (17:15)
[2017-08-18] MEDS: PEPCID PO SCH (21:56)
[2017-08-18] MEDS: KEPPRA PO SCH (21:56)
[2017-08-19] MEDS: ATIVAN IV PRN (05:53)
[2017-08-19] MEDS: D5W/0.45% NACL/KCL 40 MEQ 40 MEQ/1,000 ML BAG IV SCH ×2 (05:53→19:58)
[2017-08-19 06:15] LABS: BUN/Creatinine Ratio 10; Blood Urea Nitrogen 2 mg/dL (7-17); Calcium 7.7 mg/dL (8.4-10.2); Hemolysis Index 14
--- NOTE | 2017-08-19 08:34 | Progress Note ---
<PREMA BALDERRAMA - Last Filed: 08/19/17 14:05> Assessment and Plan Assessment and plan: Patient is a 56-year-old female with a past medical history hypertension and daily alcohol use presents to the hospital with tachycardia. Sepsis secondary to UTI Urine culture no growth up to date continue IV fluid hydration continue antibiotics Supportive care Delirium tremens Secondary to alcohol withdrawal Continue CIWA protocol Continue IV fluids, Continue foliate and thiamin Derangements of electrolytes Hypokalemia, hypomagnesemia, hypophosphatemia Replete IV and by mouth Closely monitor electrolytes Seizures due to alcohol withdrawal, and hypomagnesemia Replete electrolytes, Continue Keppra Neurology following Alcohol dependence and marijuana dependence Patient confused now counseling will be done when patient is more alert. Case management will provide outpatient resources Tachycardia Echocardiogram with 40-45% Cardiology following Acute toxic and metabolic encephalopathy clinically improving Most likely due to alcohol withdrawal CT of the head negative Dvt prophylaxis Lovenox History Interval history: Patient denies chest pain, headache or heart palpitation. Labs and nursing notes reviewed. Hospitalist Physical - Physical exam Narrative exam: Patient alert and oriented to self - Constitutional Vitals: Temp Pulse Resp BP Pulse Ox 98.3 F 111 H 20 120/81 100 08/19/17 04:36 08/19/17 04:36 08/19/17 04:36 08/19/17 04:36 08/19/17 04:36 General appearance: Present: no acute distress, other (Confused ) - EENT Eyes: Present: PERRL ENT: hearing intact - Neck Neck: Present: supple - Respiratory Respiratory effort: normal Respiratory: bilateral: CTA - Cardiovascular Rhythm: regular Heart Sounds: Present: S1 & S2 - Abdominal General gastrointestinal: soft, non-tender - Integumentary Integumentary: Present: clear, warm, dry - Psychiatric Psychiatric: appropriate mood/affect - Neurologic Neurologic: other (Confused alert and oriented to self) - Allied Health Allied health notes reviewed: nursing Results - Labs CBC & Chem 7: 08/15/17 22:00 08/19/17 Unknown Labs: Laboratory Last Values WBC 18.1 K/mm3 (4.5-11.0) H 08/15/17 22:00 RBC 3.28 M/mm3 (3.65-5.03) L 08/15/17 22:00 Hgb 11.8 gm/dl (10.1-14.3) 08/15/17 22:00 Hct 34.9 % (30.3-42.9) 08/15/17 22:00 MCV 107 fl (79-97) H 08/15/17 22:00 MCH 36 pg (28-32) H 08/15/17 22:00 MCHC 34 % (30-34) 08/15/17 22:00 RDW 14.0 % (13.2-15.2) 08/15/17 22:00 Plt Count 141 K/mm3 (140-440) 08/15/17 22:00 Lymph % (Auto) 5.1 % (13.4-35.0) L 08/15/17 22:00 [place] % (Auto) 5.9 % (0.0-7.3) 08/15/17 22:00 Eos % (Auto) 0.0 % (0.0-4.3) 08/15/17 22:00 Baso % (Auto) 0.2 % (0.0-1.8) 08/15/17 22:00 Lymph # 0.9 K/mm3 (1.2-5.4) L 08/15/17 22:00 [place] # 1.1 K/mm3 (0.0-0.8) H 08/15/17 22:00 Eos # 0.0 K/mm3 (0.0-0.4) 08/15/17 22:00 Baso # 0.0 K/mm3 (0.0-0.1) 08/15/17 22:00 Add Manual Diff Complete 08/15/17 08:33 Total Counted 100 08/15/17 08:33 Seg Neutrophils % 88.8 % (40.0-70.0) H 08/15/17 22:00 Seg Neuts % (Manual) 90.0 % (40.0-70.0) H 08/15/17 08:33 Band Neutrophils % 9.0 % 08/15/17 08:33 Lymphocytes % (Manual) 1.0 % (13.4-35.0) L 08/15/17 08:33 Reactive Lymphs % (Man) 0 % 08/15/17 08:33 Monocytes % (Manual) 0 % (0.0-7.3) 08/15/17 08:33 Eosinophils % (Manual) 0 % (0.0-4.3) 08/15/17 08:33 Basophils % (Manual) 0 % (0.0-1.8) 08/15/17 08:33 Metamyelocytes % 0 % 08/15/17 08:33 Myelocytes % 0 % 08/15/17 08:33 Promyelocytes % 0 % 08/15/17 08:33 Blast Cells % 0 % 08/15/17 08:33 Nucleated RBC % Not Reportable 08/15/17 08:33 Seg Neutrophils # 16.1 K/mm3 (1.8-7.7) H 08/15/17 22:00 Seg Neutrophils # Man 17.4 K/mm3 (1.8-7.7) H 08/15/17 08:33 Band Neutrophils # 1.7 K/mm3 08/15/17 08:33 Lymphocytes # (Manual) 0.2 K/mm3 (1.2-5.4) L 08/15/17 08:33 Abs React Lymphs (Man) 0.0 K/mm3 08/15/17 08:33 Monocytes # (Manual) 0.0 K/mm3 (0.0-0.8) 08/15/17 08:33 Eosinophils # (Manual) 0.0 K/mm3 (0.0-0.4) 08/15/17 08:33 Basophils # (Manual) 0.0 K/mm3 (0.0-0.1) 08/15/17 08:33 Metamyelocytes # 0.0 K/mm3 08/15/17 08:33 Myelocytes # 0.0 K/mm3 08/15/17 08:33 Promyelocytes # 0.0 K/mm3 08/15/17 08:33 Blast Cells # 0.0 K/mm3 08/15/17 08:33 WBC Morphology Not Reportable 08/15/17 08:33 Hypersegmented Neuts Not Reportable 08/15/17 08:33 Hyposegmented Neuts Not Reportable 08/15/17 08:33 Hypogranular Neuts Not Reportable 08/15/17 08:33 Smudge Cells Not Reportable 08/15/17 08:33 Toxic Granulation 1+ 08/15/17 08:33 Toxic Vacuolation Few 08/15/17 08:33 Dohle Bodies Few 08/15/17 08:33 Pelger-Huet Anomaly Not Reportable 08/15/17 08:33 Kathryn Rods Not Reportable 08/15/17 08:33 Platelet Estimate Consistent w auto 08/15/17 08:33 Clumped Platelets Not Reportable 08/15/17 08:33 Plt Clumps, EDTA Not Reportable 08/15/17 08:33 Large Platelets Not Reportable 08/15/17 08:33 Giant Platelets Not Reportable 08/15/17 08:33 Platelet Satelliting Not Reportable 08/15/17 08:33 Plt Morphology Comment Not Reportable 08/15/17 08:33 RBC Morphology Not Reportable 08/15/17 08:33 Dimorphic RBCs Not Reportable 08/15/17 08:33 Polychromasia Not Reportable 08/15/17 08:33 Hypochromasia 1+ 08/15/17 08:33 Poikilocytosis Not Reportable 08/15/17 08:33 Anisocytosis Not Reportable 08/15/17 08:33 Microcytosis Not Reportable 08/15/17 08:33 Macrocytosis Not Reportable 08/15/17 08:33 Spherocytes Not Reportable 08/15/17 08:33 Pappenheimer Bodies Not Reportable 08/15/17 08:33 Sickle Cells Not Reportable 08/15/17 08:33 Target Cells Few 08/15/17 08:33 Tear Drop Cells Not Reportable 08/15/17 08:33 Ovalocytes Not Reportable 08/15/17 08:33 Helmet Cells Not Reportable 08/15/17 08:33 Devlin-Lolo Bodies Not Reportable 08/15/17 08:33 [place] Rings Not Reportable 08/15/17 08:33 [place] Cells Not Reportable 08/15/17 08:33 Bite Cells Not Reportable 08/15/17 08:33 Crenated Cell Not Reportable 08/15/17 08:33 Elliptocytes Not Reportable 08/15/17 08:33 Acanthocytes (Spur) Not Reportable 08/15/17 08:33 Rouleaux Not Reportable 08/15/17 08:33 Hemoglobin C Crystals Not Reportable 08/15/17 08:33 Schistocytes Not Reportable 08/15/17 08:33 Malaria parasites Not Reportable 08/15/17 08:33 Eugene Bodies Not Reportable 08/15/17 08:33 Hem Pathologist Commnt No 08/15/17 08:33 PT 16.3 Sec. (12.2-14.9) H 08/13/17 17:26 INR 1.24 (0.87-1.13) H 08/13/17 17:26 APTT 38.3 Sec. (24.2-36.6) H 08/13/17 17:26 POC ABG pH 7.467 (7.35-7.45) H 08/14/17 21:53 POC ABG pCO2 21.7 (35-45) L 08/14/17 21:53 POC ABG pO2 59 (80-105) L 08/14/17 21:53 POC ABG HCO3 15.7 08/14/17 21:53 POC ABG Total CO2 16 08/14/17 21:53 POC ABG O2 Sat 93 08/14/17 21:53 POC ABG Base Excess -8 08/14/17 21:53 VBG pH 7.517 (7.320-7.420) H 08/13/17 17:26 FiO2 50 % 08/14/17 21:53 Sodium 138 mmol/L (137-145) 08/19/17 Unknown Potassium 4.6 mmol/L (3.6-5.0) D 08/19/17 Unknown Chloride 103.4 mmol/L (98-107) 08/19/17 Unknown Carbon Dioxide 24 mmol/L (22-30) 08/19/17 Unknown Anion Gap 15 mmol/L 08/19/17 Unknown BUN 2 mg/dL (7-17) L 08/19/17 Unknown Creatinine < 0.2 mg/dL (0.7-1.2) L 08/19/17 Unknown Estimated GFR > 60 ml/min 08/19/17 Unknown BUN/Creatinine Ratio 10 % 08/19/17 Unknown Glucose 95 mg/dL (65-100) 08/19/17 Unknown POC Glucose 121 (70-105) H 08/14/17 13:43 Lactic Acid 1.60 mmol/L (0.7-2.0) 08/16/17 15:15 Calcium 7.7 mg/dL (8.4-10.2) L 08/19/17 Unknown Phosphorus 2.10 mg/dL (2.5-4.5) L 08/19/17 Unknown Magnesium 1.20 mg/dL (1.7-2.3) L 08/19/17 Unknown Total Bilirubin 3.40 mg/dL (0.1-1.2) H 08/15/17 08:33 AST 90 units/L (5-40) H 08/15/17 08:33 ALT 43 units/L (7-56) 08/15/17 08:33 Alkaline Phosphatase 160 units/L (35-129) H 08/15/17 08:33 Ammonia 37.0 umol/L (25-60) 08/16/17 15:15 Total Creatine Kinase 70 units/L (30-135) 08/13/17 17:26 CK-MB (CK-2) 1.6 ng/mL (0.0-4.0) 08/13/17 17:26 CK-MB (CK-2) Rel Index 2.2 (0-4) 08/13/17 17:26 Troponin T < 0.010 ng/mL (0.00-0.029) 08/13/17 17:26 Total Protein 5.4 g/dL (6.3-8.2) L 08/15/17 08:33 Albumin 1.9 g/dL (3.9-5) L 08/15/17 08:33 Albumin/Globulin Ratio 0.5 % 08/15/17 08:33 Lipase 8 units/L (13-60) L 08/13/17 15:44 Urine Color Laura (Yellow) 08/13/17 16:40 Urine Turbidity Slightly-cloudy (Clear) 08/13/17 16:40 Urine pH 6.0 (5.0-7.0) 08/13/17 16:40 Ur Specific [place] 1.016 (1.003-1.030) 08/13/17 16:40 Urine Protein 100 mg/dl mg/dL (Negative) 08/13/17 16:40 Urine Glucose (UA) Neg mg/dL (Negative) 08/13/17 16:40 Urine Ketones Neg mg/dL (Negative) 08/13/17 16:40 Urine Blood Mod (Negative) 08/13/17 16:40 Urine Nitrite Neg (Negative) 08/13/17 16:40 Urine Bilirubin Neg (Negative) 08/13/17 16:40 Urine Urobilinogen 2.0 mg/dL (<2.0) 08/13/17 16:40 Ur Leukocyte Esterase Lg (Negative) 08/13/17 16:40 Urine WBC (Auto) > 182.0 /HPF (0.0-6.0) H 08/13/17 16:40 Urine RBC (Auto) 68.0 /HPF (0.0-6.0) 08/13/17 16:40 U Epithel Cells (Auto) < 1.0 /HPF (0-13.0) 08/13/17 16:40 Urine Bacteria (Auto) 4+ /HPF (Negative) 08/13/17 16:40 Ur Transition Epith Cell 2 /HPF 08/13/17 16:40 Hyaline Casts 1 /LPF 08/13/17 16:40 Urine Mucus Few /HPF 08/13/17 16:40 Urine Opiates Screen Presumptive negative 08/13/17 16:40 Urine Methadone Screen Presumptive negative 08/13/17 16:40 Ur Barbiturates Screen Presumptive negative 08/13/17 16:40 Ur Phencyclidine Scrn Presumptive negative 08/13/17 16:40 Ur Amphetamines Screen Presumptive negative 08/13/17 16:40 U Benzodiazepines Scrn Presumptive negative 08/13/17 16:40 Urine Cocaine Screen Presumptive negative 08/13/17 16:40 U Marijuana (THC) Screen Presumptive positive 08/13/17 16:40 Drugs of Abuse Note Disclamer 08/13/17 16:40 Plasma/Serum Alcohol < 0.01 gm% (0-0.07) 08/13/17 17:26 Hepatitis A IgM Ab Non-reactive (NonReactive) 08/14/17 Unknown Hep Bs Antigen Non-reactive (Negative) 08/14/17 Unknown Hep B Core IgM Ab Non-reactive (NonReactive) 08/14/17 Unknown Hepatitis C Antibody Non-reactive (NonReactive) 08/14/17 Unknown <JAYNA CALIXTO M - Last Filed: 08/20/17 12:59> Hospitalist Physical - Constitutional Vitals: Temp Pulse Resp BP Pulse Ox 99.0 F 114 H 20 113/74 95 08/20/17 07:55 08/20/17 07:55 08/20/17 07:55 08/20/17 07:55 08/20/17 09:52 Results - Labs CBC & Chem 7: 08/15/17 22:00 08/20/17 08:00 Labs: Laboratory Last Values WBC 18.1 K/mm3 (4.5-11.0) H 08/15/17 22:00 RBC 3.28 M/mm3 (3.65-5.03) L 08/15/17 22:00 Hgb 11.8 gm/dl (10.1-14.3) 08/15/17 22:00 Hct 34.9 % (30.3-42.9) 08/15/17 22:00 MCV 107 fl (79-97) H 08/15/17 22:00 MCH 36 pg (28-32) H 08/15/17 22:00 MCHC 34 % (30-34) 08/15/17 22:00 RDW 14.0 % (13.2-15.2) 08/15/17 22:00 Plt Count 141 K/mm3 (140-440) 08/15/17 22:00 Lymph % (Auto) 5.1 % (13.4-35.0) L 08/15/17 22:00 [place] % (Auto) 5.9 % (0.0-7.3) 08/15/17 22:00 Eos % (Auto) 0.0 % (0.0-4.3) 08/15/17 22:00 Baso % (Auto) 0.2 % (0.0-1.8) 08/15/17 22:00 Lymph # 0.9 K/mm3 (1.2-5.4) L 08/15/17 22:00 [place] # 1.1 K/mm3 (0.0-0.8) H 08/15/17 22:00 Eos # 0.0 K/mm3 (0.0-0.4) 08/15/17 22:00 Baso # 0.0 K/mm3 (0.0-0.1) 08/15/17 22:00 Add Manual Diff Complete 08/15/17 08:33 Total Counted 100 08/15/17 08:33 Seg Neutrophils % 88.8 % (40.0-70.0) H 08/15/17 22:00 Seg Neuts % (Manual) 90.0 % (40.0-70.0) H 08/15/17 08:33 Band Neutrophils % 9.0 % 08/15/17 08:33 Lymphocytes % (Manual) 1.0 % (13.4-35.0) L 08/15/17 08:33 Reactive Lymphs % (Man) 0 % 08/15/17 08:33 Monocytes % (Manual) 0 % (0.0-7.3) 08/15/17 08:33 Eosinophils % (Manual) 0 % (0.0-4.3) 08/15/17 08:33 Basophils % (Manual) 0 % (0.0-1.8) 08/15/17 08:33 Metamyelocytes % 0 % 08/15/17 08:33 Myelocytes % 0 % 08/15/17 08:33 Promyelocytes % 0 % 08/15/17 08:33 Blast Cells % 0 % 08/15/17 08:33 Nucleated RBC % Not Reportable 08/15/17 08:33 Seg Neutrophils # 16.1 K/mm3 (1.8-7.7) H 08/15/17 22:00 Seg Neutrophils # Man 17.4 K/mm3 (1.8-7.7) H 08/15/17 08:33 Band Neutrophils # 1.7 K/mm3 08/15/17 08:33 Lymphocytes # (Manual) 0.2 K/mm3 (1.2-5.4) L 08/15/17 08:33 Abs React Lymphs (Man) 0.0 K/mm3 08/15/17 08:33 Monocytes # (Manual) 0.0 K/mm3 (0.0-0.8) 08/15/17 08:33 Eosinophils # (Manual) 0.0 K/mm3 (0.0-0.4) 08/15/17 08:33 Basophils # (Manual) 0.0 K/mm3 (0.0-0.1) 08/15/17 08:33 Metamyelocytes # 0.0 K/mm3 08/15/17 08:33 Myelocytes # 0.0 K/mm3 08/15/17 08:33 Promyelocytes # 0.0 K/mm3 08/15/17 08:33 Blast Cells # 0.0 K/mm3 08/15/17 08:33 WBC Morphology Not Reportable 08/15/17 08:33 Hypersegmented Neuts Not Reportable 08/15/17 08:33 Hyposegmented Neuts Not Reportable 08/15/17 08:33 Hypogranular Neuts Not Reportable 08/15/17 08:33 Smudge Cells Not Reportable 08/15/17 08:33 Toxic Granulation 1+ 08/15/17 08:33 Toxic Vacuolation Few 08/15/17 08:33 Dohle Bodies Few 08/15/17 08:33 Pelger-Huet Anomaly Not Reportable 08/15/17 08:33 Kathryn Rods Not Reportable 08/15/17 08:33 Platelet Estimate Consistent w auto 08/15/17 08:33 Clumped Platelets Not Reportable 08/15/17 08:33 Plt Clumps, EDTA Not Reportable 08/15/17 08:33 Large Platelets Not Reportable 08/15/17 08:33 Giant Platelets Not Reportable 08/15/17 08:33 Platelet Satelliting Not Reportable 08/15/17 08:33 Plt Morphology Comment Not Reportable 08/15/17 08:33 RBC Morphology Not Reportable 08/15/17 08:33 Dimorphic RBCs Not Reportable 08/15/17 08:33 Polychromasia Not Reportable 08/15/17 08:33 Hypochromasia 1+ 08/15/17 08:33 Poikilocytosis Not Reportable 08/15/17 08:33 Anisocytosis Not Reportable 08/15/17 08:33 Microcytosis Not Reportable 08/15/17 08:33 Macrocytosis Not Reportable 08/15/17 08:33 Spherocytes Not Reportable 08/15/17 08:33 Pappenheimer Bodies Not Reportable 08/15/17 08:33 Sickle Cells Not Reportable 08/15/17 08:33 Target Cells Few 08/15/17 08:33 Tear Drop Cells Not Reportable 08/15/17 08:33 Ovalocytes Not Reportable 08/15/17 08:33 Helmet Cells Not Reportable 08/15/17 08:33 Dev[place]-Lolo Bodies Not Reportable 08/15/17 08:33 [place] Rings Not Reportable 08/15/17 08:33 [place] Cells Not Reportable 08/15/17 08:33 Bite Cells Not Reportable 08/15/17 08:33 Crenated Cell Not Reportable 08/15/17 08:33 Elliptocytes Not Reportable 08/15/17 08:33 Acanthocytes (Spur) Not Reportable 08/15/17 08:33 Rouleaux Not Reportable 08/15/17 08:33 Hemoglobin C Crystals Not Reportable 08/15/17 08:33 Schistocytes Not Reportable 08/15/17 08:33 Malaria parasites Not Reportable 08/15/17 08:33 [place] Bodies Not Reportable 08/15/17 08:33 Hem Pathologist Commnt No 08/15/17 08:33 PT 16.3 Sec. (12.2-14.9) H 08/13/17 17:26 INR 1.24 (0.87-1.13) H 08/13/17 17:26 APTT 38.3 Sec. (24.2-36.6) H 08/13/17 17:26 POC ABG pH 7.467 (7.35-7.45) H 08/14/17 21:53 POC ABG pCO2 21.7 (35-45) L 08/14/17 21:53 POC ABG pO2 59 (80-105) L 08/14/17 21:53 POC ABG HCO3 15.7 08/14/17 21:53 POC ABG Total CO2 16 08/14/17 21:53 POC ABG O2 Sat 93 08/14/17 21:53 POC ABG Base Excess -8 08/14/17 21:53 VBG pH 7.517 (7.320-7.420) H 08/13/17 17:26 FiO2 50 % 08/14/17 21:53 Sodium 136 mmol/L (137-145) L 08/20/17 08:00 Potassium 4.6 mmol/L (3.6-5.0) 08/20/17 08:00 Chloride 100.6 mmol/L (98-107) 08/20/17 08:00 Carbon Dioxide 24 mmol/L (22-30) 08/20/17 08:00 Anion Gap 16 mmol/L 08/20/17 08:00 BUN 2 mg/dL (7-17) L 08/20/17 08:00 Creatinine 0.2 mg/dL (0.7-1.2) L 08/20/17 08:00 Estimated GFR > 60 ml/min 08/20/17 08:00 BUN/Creatinine Ratio 10 % 08/20/17 08:00 Glucose 84 mg/dL (65-100) 08/20/17 08:00 POC Glucose 121 (70-105) H 08/14/17 13:43 Lactic Acid 1.60 mmol/L (0.7-2.0) 08/16/17 15:15 Calcium 8.8 mg/dL (8.4-10.2) 08/20/17 08:00 Phosphorus 3.00 mg/dL (2.5-4.5) D 08/20/17 08:00 Magnesium 1.60 mg/dL (1.7-2.3) L 08/20/17 08:00 Total Bilirubin 3.40 mg/dL (0.1-1.2) H 08/15/17 08:33 AST 90 units/L (5-40) H 08/15/17 08:33 ALT 43 units/L (7-56) 08/15/17 08:33 Alkaline Phosphatase 160 units/L (35-129) H 08/15/17 08:33 Ammonia 37.0 umol/L (25-60) 08/16/17 15:15 Total Creatine Kinase 70 units/L (30-135) 08/13/17 17:26 CK-MB (CK-2) 1.6 ng/mL (0.0-4.0) 08/13/17 17:26 CK-MB (CK-2) Rel Index 2.2 (0-4) 08/13/17 17:26 Troponin T < 0.010 ng/mL (0.00-0.029) 08/13/17 17:26 Total Protein 5.4 g/dL (6.3-8.2) L 08/15/17 08:33 Albumin 1.9 g/dL (3.9-5) L 08/15/17 08:33 Albumin/Globulin Ratio 0.5 % 08/15/17 08:33 Lipase 8 units/L (13-60) L 08/13/17 15:44 Urine Color Laura (Yellow) 08/13/17 16:40 Urine Turbidity Slightly-cloudy (Clear) 08/13/17 16:40 Urine pH 6.0 (5.0-7.0) 08/13/17 16:40 Ur Specific [place] 1.016 (1.003-1.030) 08/13/17 16:40 Urine Protein 100 mg/dl mg/dL (Negative) 08/13/17 16:40 Urine Glucose (UA) Neg mg/dL (Negative) 08/13/17 16:40 Urine Ketones Neg mg/dL (Negative) 08/13/17 16:40 Urine Blood Mod (Negative) 08/13/17 16:40 Urine Nitrite Neg (Negative) 08/13/17 16:40 Urine Bilirubin Neg (Negative) 08/13/17 16:40 Urine Urobilinogen 2.0 mg/dL (<2.0) 08/13/17 16:40 Ur Leukocyte Esterase Lg (Negative) 08/13/17 16:40 Urine WBC (Auto) > 182.0 /HPF (0.0-6.0) H 08/13/17 16:40 Urine RBC (Auto) 68.0 /HPF (0.0-6.0) 08/13/17 16:40 U Epithel Cells (Auto) < 1.0 /HPF (0-13.0) 08/13/17 16:40 Urine Bacteria (Auto) 4+ /HPF (Negative) 08/13/17 16:40 Ur Transition Epith Cell 2 /HPF 08/13/17 16:40 Hyaline Casts 1 /LPF 08/13/17 16:40 Urine Mucus Few /HPF 08/13/17 16:40 Urine Opiates Screen Presumptive negative 08/13/17 16:40 Urine Methadone Screen Presumptive negative 08/13/17 16:40 Ur Barbiturates Screen Presumptive negative 08/13/17 16:40 Ur Phencyclidine Scrn Presumptive negative 08/13/17 16:40 Ur Amphetamines Screen Presumptive negative 08/13/17 16:40 U Benzodiazepines Scrn Presumptive negative 08/13/17 16:40 Urine Cocaine Screen Presumptive negative 08/13/17 16:40 U Marijuana (THC) Screen Presumptive positive 08/13/17 16:40 Drugs of Abuse Note Disclamer 08/13/17 16:40 Plasma/Serum Alcohol < 0.01 gm% (0-0.07) 08/13/17 17:26 Hepatitis A IgM Ab Non-reactive (NonReactive) 08/14/17 Unknown Hep Bs Antigen Non-reactive (Negative) 08/14/17 Unknown Hep B Core IgM Ab Non-reactive (NonReactive) 08/14/17 Unknown Hepatitis C Antibody Non-reactive (NonReactive) 08/14/17 Unknown
[2017-08-19] MEDS ORDERED: KPHOS 45 MMOL in NACL 0.9% 500 ML 500 ML IV ONE (09:00)
--- NOTE | 2017-08-19 09:38 | Progress Note ---
Subjective - Reason for Consult Consult date: 08/19/17 Reason for consult: Psychiatry Follow-up - Chief Complaint Chief complaint: "How are you" 56-year-old female with a past medical history hypertension and daily alcohol use presents to the hospital with tachycardia. Today patient is calm and cooperative during the assessment. She stated that she like to drink alcohol "period." She denies being depressed and experiencing life strssors at this time or in the past. She stated that she need to stop drinking (etoh), because she does not want to end up back in the hospital again. She denies SI/HI's and AVH's. She denies erratic sleep and a poor appetite prior to her admission to [facility]. Per collateral from her daughter Alexei Aj at [phone] stated that her mother has been drinking alcohol (etoh) for 20 plus years. She stated that her mother last drink was 08/12/2017. She stated that they have a family hx of alcoholism. She denies that her mother has a mental health hx other than alcohol abuse. She stated that her mother would benefit from outpatient rehab services once discharged. Mental Status Exam - Vital signs Last Vital Signs Temp 99.7 F H 08/19/17 08:19 Pulse 118 H 08/19/17 08:19 Resp 20 08/19/17 08:19 BP 136/92 08/19/17 08:19 Pulse Ox 97 08/19/17 08:19 - Exam Narrative exam: MSE: Appearance: calm, cooperative Behavior: good eye contact Speech: regular rate and tone Mood: "okay" Affect: congruent to mood Thought Process: circumstantial Thought Content: denies SI/HI's and AVH's Motor Activity: lying in bed Cognition: A/O x 3 Insight: variable Judgment: variable Assessment and Plan Impression: Per the record, the patient has a hx of alcoholism. Today patient is calm and cooperative during the assessment Patient in restraints. Patient still tachycardic. Medical: Sepsis secondary to UTI Recommendation/Plan: Continue to assess the need for CIWA daily, this is day 6. Use Ativan per CIWA only and Haldol for acute agitation only. Will continue to assess patient daily. Recommend outpatient rehab services when discharged. Recommend the following delirium precautions: 1. Frequently reorient patient and involve him/her in their care (simple explanations of procedures, tests, medications). 2. Lights on and shades open during daytime hours. 3. Try to avoid unnecessary interruptions to sleep during nighttime hours. 4. Obtain glasses, hearing aids from home if patient uses these at baseline. 5. Avoid medications that may exacerbate delirium (especially narcotics, barbiturates, ambien, lunesta, benzos, and medications with excessive anticholinergic properties). Recommend an alternative medications for pain if possible. 6. Recommend 1:1 sitter for safety. 7. D/C restraints when not indicated. 8. Use Haldol 5 mg IM Q6hrs PRN for acute agitation.
[2017-08-19] MEDS ORDERED: SODIUM PHOSPHATE 45 MMOL in NACL 0.9% 500 ML 500 ML IV ONE (11:00)
[2017-08-19] MEDS ORDERED: MAGNESIUM SULFATE 4GM/100ML 4 GM/100 ML BAG IV ONE (11:00)
[2017-08-19] MEDS: PEPCID PO SCH ×2 (11:09→21:07)
[2017-08-19] MEDS: K-PHOS NEUTRAL PO SCH ×3 (11:09→21:10)
[2017-08-19] MEDS: KEPPRA PO SCH ×2 (11:09→21:08)
[2017-08-19] MEDS: VITAMIN B-1 PO SCH (11:09)
[2017-08-19] MEDS: FOLVITE PO SCH (11:09)
[2017-08-19] MEDS: cefTRIAXone 2 GM in NACL 0.9% 20 ML IV SCH (11:09)
[2017-08-19] MEDS: MAG-OX PO SCH (11:09)
--- NOTE | 2017-08-19 11:34 | Progress Note ---
Assessment and Plan Sepsis UTI Alcohol withdrawal with delirium tremors Hypokalemia/Hypomagnesemia Reflex Sinus tachycardia Echocardiogram reports a mild LVEF 40-45%. Recommend: Maintain electrolytes and monitor daily. No medical therapy indicated for reflex sinus tachycardia. Subjective Date of service: 08/19/17 Principal diagnosis: DT's / EtOH Withdrawals Interval history: Patient denies chest pain and shortness of breath. Objective Vital Signs Temp Pulse Pulse Resp BP BP Pulse Ox 08/19/17 08:19 99.7 F H 118 H 20 136/92 97 08/19/17 04:36 98.3 F 111 H 20 120/81 100 08/18/17 23:50 98.7 F 110 H 22 109/76 100 08/18/17 20:20 94 H 22 98 08/18/17 19:30 99.9 F H 103 H 24 108/74 98 08/18/17 19:20 97 H 08/18/17 17:33 135/81 - Physical Examination General: No Apparent Distress HEENT: Positive: PERRL Cardiac: Positive: Tachycardia - Labs and Meds Comprehensive Metabolic Panel 08/19/17 Range/Units Unknown Sodium 138 (137-145) mmol/L Potassium 4.6 D (3.6-5.0) mmol/L Chloride 103.4 (98-107) mmol/L Carbon Dioxide 24 (22-30) mmol/L BUN 2 L (7-17) mg/dL Creatinine < 0.2 L (0.7-1.2) mg/dL Glucose 95 (65-100) mg/dL Calcium 7.7 L (8.4-10.2) mg/dL - Imaging and Cardiology EKG: report reviewed (Sinus Tach 166) - Allied health notes Allied health notes reviewed: nursing
[2017-08-20 09:37] LABS: BUN/Creatinine Ratio 10; Blood Urea Nitrogen 2 mg/dL (7-17); Calcium 8.8 mg/dL (8.4-10.2); Hemolysis Index 1
--- NOTE | 2017-08-20 09:54 | Progress Note ---
Subjective - Reason for Consult Consult date: 08/20/17 Reason for consult: Psychiatry Follow-up - Chief Complaint Chief complaint: "Good morning" 56-year-old female with a past medical history hypertension and daily alcohol use presents to the hospital with tachycardia. Today patient is calm and cooperative during the assessment. She was able to ID the current/past [place] presidents and her . She was able to recall 2/3 numbers (2,8,19) within 5 mins. She stated that she would like to stop abusing alcohol. She denies SI/HI' s and AVH's. Per collateral from her daughter Alexei Aj at [phone] stated that her mother has been drinking alcohol (etoh) for 20 plus years. She stated that her mother last drink was 08/12/2017. She stated that they have a family hx of alcoholism. She denies that her mother has a mental health hx other than alcohol abuse. She stated that her mother would benefit from outpatient rehab services once discharged. Mental Status Exam - Vital signs Last Vital Signs Temp 99.0 F 08/20/17 07:55 Pulse 114 H 08/20/17 07:55 Resp 20 08/20/17 07:55 BP 113/74 08/20/17 07:55 Pulse Ox 95 08/20/17 09:52 - Exam Narrative exam: MSE: Appearance: calm, cooperative Behavior: good eye contact Speech: regular rate and tone Mood: "okay" Affect: congruent to mood Thought Process: circumstantial Thought Content: denies SI/HI's and AVH's Motor Activity: lying in bed Cognition: A/O x 3 Insight: variable Judgment: variable Assessment and Plan Impression: Per the record, the patient has a hx of alcoholism. Today patient is calm and cooperative during the assessment Patient in restraints. Patient still tachycardic (Cardio following patient). No acute withdrawals noted (etoh) . Medical: Sepsis secondary to UTI Recommendation/Plan: Assess the need for CIWA, this is day 7 of the protocol. Will continue to assess patient daily. Outpatient rehab services for [facility] given to patient.
[2017-08-20] MEDS: FOLVITE PO SCH (10:04)
[2017-08-20] MEDS: VITAMIN B-1 PO SCH (10:04)
[2017-08-20] MEDS: KEPPRA PO SCH ×2 (10:04→22:50)
[2017-08-20] MEDS: MAG-OX PO SCH (10:04)
[2017-08-20] MEDS: PEPCID PO SCH ×2 (10:04→21:59)
[2017-08-20] MEDS: K-PHOS NEUTRAL PO SCH ×4 (10:04→21:29)
--- NOTE | 2017-08-20 10:42 | Progress Note ---
Assessment and Plan Sepsis UTI Alcohol withdrawal with delirium tremors Hypokalemia/Hypomagnesemia Reflex Sinus tachycardia Mild Cardiomyopathy echocardiogram reports a mild LVEF 40-45%. Recommend: Maintain electrolytes and monitor daily. Medical management for mild cardiomyopathy to include beta blockers and afterload reducing therapy. Further cardiac evaluation with an elective stress myocardial perfusion imaging will be obtained as an outpatient. Subjective Date of service: 08/20/17 Principal diagnosis: DT's / EtOH Withdrawals Interval history: Patient denies chest pain and shortness of breath. Objective Vital Signs Temp Pulse Resp BP BP Pulse Ox 08/20/17 09:52 95 08/20/17 07:55 99.0 F 114 H 20 113/74 90 08/20/17 06:07 98.3 F 112 H 18 109/78 95 08/20/17 05:23 114 H 08/20/17 00:07 99.2 F 112 H 20 107/72 97 08/19/17 21:04 119 H 88 08/19/17 21:01 99.5 F 127 H 36 H 198/137 82 L 08/19/17 20:55 120 H 93 08/19/17 20:54 100.3 F H 119 H 21 93/57 93 08/19/17 20:00 100.3 F H 120 H 21 93/57 93 08/19/17 13:02 99.0 F 117 H 18 109/68 97 - Physical Examination General: No Apparent Distress HEENT: Positive: PERRL Neck: Positive: trachea midline Cardiac: Positive: Tachycardia Lungs: Positive: Decreased Breath Sounds - Labs and Meds Comprehensive Metabolic Panel 08/20/17 Range/Units 08:00 Sodium 136 L (137-145) mmol/L Potassium 4.6 (3.6-5.0) mmol/L Chloride 100.6 (98-107) mmol/L Carbon Dioxide 24 (22-30) mmol/L BUN 2 L (7-17) mg/dL Creatinine 0.2 L (0.7-1.2) mg/dL Glucose 84 (65-100) mg/dL Calcium 8.8 (8.4-10.2) mg/dL - Imaging and Cardiology EKG: report reviewed (Sinus Tach 166) - Allied health notes Allied health notes reviewed: nursing
[2017-08-20] MEDS: D5W/0.45% NACL/KCL 40 MEQ 40 MEQ/1,000 ML BAG IV SCH (12:15)
[2017-08-20] MEDS: cefTRIAXone 2 GM in NACL 0.9% 20 ML IV SCH (12:18)
--- NOTE | 2017-08-20 13:00 | Progress Note ---
Assessment and Plan Assessment and plan: 56-year-old female with a past medical history hypertension and daily alcohol use presents to the hospital with tachycardia. Patient received adenosine 6 then 12 en route to the hospital without improvement. Patient has 2 daughters at the bedside. Patient was been having nausea, vomiting, and diarrhea . Patient had a seizure witnessed by them and therefore EMS was called. Patient had generalized shaking, foaming at the mouth, followed by post ictal/ confusion. No previous history of seizures reported. They state the patient does drink alcohol daily and did not have a drink since one day. Sepsis secondary to UTI urine cx was contaminated, follow-up blood cultures, continue antibiotics, and rx empirically Delirium tremens Continue CIWA protocol, continue IV fluids, continue folate and B1 Derangements of electrolytes Hypokalemia, hypomagnesemia, hypophosphatemia Replete IV and by mouth, improved, only mg is low today, continue to replete Seizures due to alcohol withdrawal, and hypomagnesemia Replete electrolytes, Keppra twice a day, case discussed with Dr. Vazquez of neurology Alcohol dependence and marijuana dependence counseled on cessation, CM to provide outpatient resources Tachycardia case dw cardiology, fup echo, consistent with sinus tachycardia and requires no further workup Acute toxic and metabolic enceph alopathy -clinically improving, case dw neurologist -CT no acute findings, NH3 level wnl Debility continue PT, will need to go home with home PT as she is self pay, unfunded Daughter; Alexei Aj at [phone] History Interval history: calm cooperative, c/o generalized weakness, not agitated Review of systems Constitutional: No fevers CVS: No chest pain, no orthopnea, no dyspnea on exertion, no pedal edema GI: No abdominal pain, no diarrhea, no vomiting, no constipation Respiratory: No shortness of breath, no wheezing, no coughing Hospitalist Physical - Physical exam Narrative exam: General.: Appears well, no distress, nontoxic, disheveled and unkempt HEENT: Moist mucous membranes, extraocular muscles intact, no lymphadenopathy Neck: supple Cardiac: S1-S2 heard Lungs: clear to auscultation bilaterally Abdomen: soft , nontender, nondistended, bowel sounds positive Extremities: no edema clubbing or cyanosis Skin: no rash or lesions Neurologic: confused, knows her name, knows she is in the hospital, but mumbling - Constitutional Vitals: Temp Pulse Resp BP Pulse Ox 99.0 F 114 H 20 113/74 95 08/20/17 07:55 08/20/17 07:55 08/20/17 07:55 08/20/17 07:55 08/20/17 09:52 General appearance: Present: no acute distress, other (Confused ) Results - Labs CBC & Chem 7: 08/15/17 22:00 08/20/17 08:00 Labs: Laboratory Last Values WBC 18.1 K/mm3 (4.5-11.0) H 08/15/17 22:00 RBC 3.28 M/mm3 (3.65-5.03) L 08/15/17 22:00 Hgb 11.8 gm/dl (10.1-14.3) 08/15/17 22:00 Hct 34.9 % (30.3-42.9) 08/15/17 22:00 MCV 107 fl (79-97) H 08/15/17 22:00 MCH 36 pg (28-32) H 08/15/17 22:00 MCHC 34 % (30-34) 08/15/17 22:00 RDW 14.0 % (13.2-15.2) 08/15/17 22:00 Plt Count 141 K/mm3 (140-440) 08/15/17 22:00 Lymph % (Auto) 5.1 % (13.4-35.0) L 08/15/17 22:00 [place] % (Auto) 5.9 % (0.0-7.3) 08/15/17 22:00 Eos % (Auto) 0.0 % (0.0-4.3) 08/15/17 22:00 Baso % (Auto) 0.2 % (0.0-1.8) 08/15/17 22:00 Lymph # 0.9 K/mm3 (1.2-5.4) L 08/15/17 22:00 [place] # 1.1 K/mm3 (0.0-0.8) H 08/15/17 22:00 Eos # 0.0 K/mm3 (0.0-0.4) 08/15/17 22:00 Baso # 0.0 K/mm3 (0.0-0.1) 08/15/17 22:00 Add Manual Diff Complete 08/15/17 08:33 Total Counted 100 08/15/17 08:33 Seg Neutrophils % 88.8 % (40.0-70.0) H 08/15/17 22:00 Seg Neuts % (Manual) 90.0 % (40.0-70.0) H 08/15/17 08:33 Band Neutrophils % 9.0 % 08/15/17 08:33 Lymphocytes % (Manual) 1.0 % (13.4-35.0) L 08/15/17 08:33 Reactive Lymphs % (Man) 0 % 08/15/17 08:33 Monocytes % (Manual) 0 % (0.0-7.3) 08/15/17 08:33 Eosinophils % (Manual) 0 % (0.0-4.3) 08/15/17 08:33 Basophils % (Manual) 0 % (0.0-1.8) 08/15/17 08:33 Metamyelocytes % 0 % 08/15/17 08:33 Myelocytes % 0 % 08/15/17 08:33 Promyelocytes % 0 % 08/15/17 08:33 Blast Cells % 0 % 08/15/17 08:33 Nucleated RBC % Not Reportable 08/15/17 08:33 Seg Neutrophils # 16.1 K/mm3 (1.8-7.7) H 08/15/17 22:00 Seg Neutrophils # Man 17.4 K/mm3 (1.8-7.7) H 08/15/17 08:33 Band Neutrophils # 1.7 K/mm3 08/15/17 08:33 Lymphocytes # (Manual) 0.2 K/mm3 (1.2-5.4) L 08/15/17 08:33 Abs React Lymphs (Man) 0.0 K/mm3 08/15/17 08:33 Monocytes # (Manual) 0.0 K/mm3 (0.0-0.8) 08/15/17 08:33 Eosinophils # (Manual) 0.0 K/mm3 (0.0-0.4) 08/15/17 08:33 Basophils # (Manual) 0.0 K/mm3 (0.0-0.1) 08/15/17 08:33 Metamyelocytes # 0.0 K/mm3 08/15/17 08:33 Myelocytes # 0.0 K/mm3 08/15/17 08:33 Promyelocytes # 0.0 K/mm3 08/15/17 08:33 Blast Cells # 0.0 K/mm3 08/15/17 08:33 WBC Morphology Not Reportable 08/15/17 08:33 Hypersegmented Neuts Not Reportable 08/15/17 08:33 Hyposegmented Neuts Not Reportable 08/15/17 08:33 Hypogranular Neuts Not Reportable 08/15/17 08:33 Smudge Cells Not Reportable 08/15/17 08:33 Toxic Granulation 1+ 08/15/17 08:33 Toxic Vacuolation Few 08/15/17 08:33 Dohle Bodies Few 08/15/17 08:33 Pelger-Huet Anomaly Not Reportable 08/15/17 08:33 Kathryn Rods Not Reportable 08/15/17 08:33 Platelet Estimate Consistent w auto 08/15/17 08:33 Clumped Platelets Not Reportable 08/15/17 08:33 Plt Clumps, EDTA Not Reportable 08/15/17 08:33 Large Platelets Not Reportable 08/15/17 08:33 Giant Platelets Not Reportable 08/15/17 08:33 Platelet Satelliting Not Reportable 08/15/17 08:33 Plt Morphology Comment Not Reportable 08/15/17 08:33 RBC Morphology Not Reportable 08/15/17 08:33 Dimorphic RBCs Not Reportable 08/15/17 08:33 Polychromasia Not Reportable 08/15/17 08:33 Hypochromasia 1+ 08/15/17 08:33 Poikilocytosis Not Reportable 08/15/17 08:33 Anisocytosis Not Reportable 08/15/17 08:33 Microcytosis Not Reportable 08/15/17 08:33 Macrocytosis Not Reportable 08/15/17 08:33 Spherocytes Not Reportable 08/15/17 08:33 Pappenheimer Bodies Not Reportable 08/15/17 08:33 Sickle Cells Not Reportable 08/15/17 08:33 Target Cells Few 08/15/17 08:33 Tear Drop Cells Not Reportable 08/15/17 08:33 Ovalocytes Not Reportable 08/15/17 08:33 Helmet Cells Not Reportable 08/15/17 08:33 Devlin-Camano Bodies Not Reportable 08/15/17 08:33 [place] Rings Not Reportable 08/15/17 08:33 Narda Cells Not Reportable 08/15/17 08:33 Bite Cells Not Reportable 08/15/17 08:33 Crenated Cell Not Reportable 08/15/17 08:33 Elliptocytes Not Reportable 08/15/17 08:33 Acanthocytes (Spur) Not Reportable 08/15/17 08:33 Rouleaux Not Reportable 08/15/17 08:33 Hemoglobin C Crystals Not Reportable 08/15/17 08:33 Schistocytes Not Reportable 08/15/17 08:33 Malaria parasites Not Reportable 08/15/17 08:33 Eugene Bodies Not Reportable 08/15/17 08:33 Hem Pathologist Commnt No 08/15/17 08:33 PT 16.3 Sec. (12.2-14.9) H 08/13/17 17:26 INR 1.24 (0.87-1.13) H 08/13/17 17:26 APTT 38.3 Sec. (24.2-36.6) H 08/13/17 17:26 POC ABG pH 7.467 (7.35-7.45) H 08/14/17 21:53 POC ABG pCO2 21.7 (35-45) L 08/14/17 21:53 POC ABG pO2 59 (80-105) L 08/14/17 21:53 POC ABG HCO3 15.7 08/14/17 21:53 POC ABG Total CO2 16 08/14/17 21:53 POC ABG O2 Sat 93 08/14/17 21:53 POC ABG Base Excess -8 08/14/17 21:53 VBG pH 7.517 (7.320-7.420) H 08/13/17 17:26 FiO2 50 % 08/14/17 21:53 Sodium 136 mmol/L (137-145) L 08/20/17 08:00 Potassium 4.6 mmol/L (3.6-5.0) 08/20/17 08:00 Chloride 100.6 mmol/L (98-107) 08/20/17 08:00 Carbon Dioxide 24 mmol/L (22-30) 08/20/17 08:00 Anion Gap 16 mmol/L 08/20/17 08:00 BUN 2 mg/dL (7-17) L 08/20/17 08:00 Creatinine 0.2 mg/dL (0.7-1.2) L 08/20/17 08:00 Estimated GFR > 60 ml/min 08/20/17 08:00 BUN/Creatinine Ratio 10 % 08/20/17 08:00 Glucose 84 mg/dL (65-100) 08/20/17 08:00 POC Glucose 121 (70-105) H 08/14/17 13:43 Lactic Acid 1.60 mmol/L (0.7-2.0) 08/16/17 15:15 Calcium 8.8 mg/dL (8.4-10.2) 08/20/17 08:00 Phosphorus 3.00 mg/dL (2.5-4.5) D 08/20/17 08:00 Magnesium 1.60 mg/dL (1.7-2.3) L 08/20/17 08:00 Total Bilirubin 3.40 mg/dL (0.1-1.2) H 08/15/17 08:33 AST 90 units/L (5-40) H 08/15/17 08:33 ALT 43 units/L (7-56) 08/15/17 08:33 Alkaline Phosphatase 160 units/L (35-129) H 08/15/17 08:33 Ammonia 37.0 umol/L (25-60) 08/16/17 15:15 Total Creatine Kinase 70 units/L (30-135) 08/13/17 17:26 CK-MB (CK-2) 1.6 ng/mL (0.0-4.0) 08/13/17 17:26 CK-MB (CK-2) Rel Index 2.2 (0-4) 08/13/17 17:26 Troponin T < 0.010 ng/mL (0.00-0.029) 08/13/17 17:26 Total Protein 5.4 g/dL (6.3-8.2) L 08/15/17 08:33 Albumin 1.9 g/dL (3.9-5) L 08/15/17 08:33 Albumin/Globulin Ratio 0.5 % 08/15/17 08:33 Lipase 8 units/L (13-60) L 08/13/17 15:44 Urine Color Laura (Yellow) 08/13/17 16:40 Urine Turbidity Slightly-cloudy (Clear) 08/13/17 16:40 Urine pH 6.0 (5.0-7.0) 08/13/17 16:40 Ur Specific [place] 1.016 (1.003-1.030) 08/13/17 16:40 Urine Protein 100 mg/dl mg/dL (Negative) 08/13/17 16:40 Urine Glucose (UA) Neg mg/dL (Negative) 08/13/17 16:40 Urine Ketones Neg mg/dL (Negative) 08/13/17 16:40 Urine Blood Mod (Negative) 08/13/17 16:40 Urine Nitrite Neg (Negative) 08/13/17 16:40 Urine Bilirubin Neg (Negative) 08/13/17 16:40 Urine Urobilinogen 2.0 mg/dL (<2.0) 08/13/17 16:40 Ur Leukocyte Esterase Lg (Negative) 08/13/17 16:40 Urine WBC (Auto) > 182.0 /HPF (0.0-6.0) H 08/13/17 16:40 Urine RBC (Auto) 68.0 /HPF (0.0-6.0) 08/13/17 16:40 U Epithel Cells (Auto) < 1.0 /HPF (0-13.0) 08/13/17 16:40 Urine Bacteria (Auto) 4+ /HPF (Negative) 08/13/17 16:40 Ur Transition Epith Cell 2 /HPF 08/13/17 16:40 Hyaline Casts 1 /LPF 08/13/17 16:40 Urine Mucus Few /HPF 08/13/17 16:40 Urine Opiates Screen Presumptive negative 08/13/17 16:40 Urine Methadone Screen Presumptive negative 08/13/17 16:40 Ur Barbiturates Screen Presumptive negative 08/13/17 16:40 Ur Phencyclidine Scrn Presumptive negative 08/13/17 16:40 Ur Amphetamines Screen Presumptive negative 08/13/17 16:40 U Benzodiazepines Scrn Presumptive negative 08/13/17 16:40 Urine Cocaine Screen Presumptive negative 08/13/17 16:40 U Marijuana (THC) Screen Presumptive positive 08/13/17 16:40 Drugs of Abuse Note Disclamer 08/13/17 16:40 Plasma/Serum Alcohol < 0.01 gm% (0-0.07) 08/13/17 17:26 Hepatitis A IgM Ab Non-reactive (NonReactive) 08/14/17 Unknown Hep Bs Antigen Non-reactive (Negative) 08/14/17 Unknown Hep B Core IgM Ab Non-reactive (NonReactive) 08/14/17 Unknown Hepatitis C Antibody Non-reactive (NonReactive) 08/14/17 Unknown
[2017-08-20] MEDS ORDERED: MAGNESIUM SULFATE 4GM/100ML 4 GM/100 ML BAG IV ONE (14:00)
[2017-08-20] MEDS: ZESTRIL PO SCH (14:20)
--- NOTE | 2017-08-20 19:12 | Progress Note ---
Assessment and Plan Sepsis Acute encephalopathy Alcohol withdrawal seizure with DTs Hypokalemia Hypomagnesemia Lactic acid acidosis Marijuana abuse Alcohol dependence Delirium tremens UTI (urinary tract infection) Sinus tachycardia Transaminitis -monitor hemodynamics closely - continue aspiration precautions - continue CIWA protocol with Ativan - added prn haldol - magnesium and phosphorus replaced - continue empiric AB's and follow cultures Subjective Date of service: 08/20/17 Principal diagnosis: DT's / EtOH Withdrawals Objective - Exam Narrative Exam: General.: Appears well, no distress, nontoxic, disheveled and unkempt HEENT: Moist mucous membranes, extraocular muscles intact, no lymphadenopathy Neck: supple Cardiac: S1-S2 heard Lungs: clear to auscultation bilaterally Abdomen: soft , nontender, nondistended, bowel sounds positive Extremities: no edema clubbing or cyanosis Skin: no rash or lesions Neurologic: confused, knows her name, knows she is in the hospital, but mumbling Vital Signs - 12hr 08/20/17 08/20/17 08/20/17 07:55 09:52 14:20 Temperature 99.0 F Pulse Rate 114 H Respiratory 20 Rate Blood Pressure 113/74 113/64 O2 Sat by Pulse 90 95 Oximetry 08/20/17 16:24 Temperature 99.5 F Pulse Rate 121 H Respiratory 19 Rate Blood Pressure 98/63 O2 Sat by Pulse 91 Oximetry Constitutional: lethargic, appears uncomfortable Eyes: non-icteric ENT: oropharynx moist Neck: supple, no lymphadenopathy, no JVD Effort: mildly labored Ascultation: Bilateral: diminished breath sounds, wheezes, rhonchi (bases) Percussion: Bilateral: not dull Cardiovascular: regular rate and rhythm (tachycardia), other (S1,S2, no murmurs , gallops or rubs) Gastrointestinal: normoactive bowel sounds, soft, non-tender, non-distended Integumentary: normal Extremities: no cyanosis, no edema, pulses normal, no ischemia or petechiae Neurologic: non-focal exam (withdraws to pain, not following commands) Psychiatric: other (sedated) CBC and BMP: 08/15/17 22:00 08/20/17 08:00 ABG, PT/INR, D-dimer: ABG POC ABG pH 7.467 (7.35-7.45) H 08/14/17 21:53 POC ABG pCO2 21.7 (35-45) L 08/14/17 21:53 POC ABG pO2 59 (80-105) L 08/14/17 21:53 POC ABG HCO3 15.7 08/14/17 21:53 POC ABG Total CO2 16 08/14/17 21:53 POC ABG O2 Sat 93 08/14/17 21:53 PT/INR, D-dimer PT 16.3 Sec. (12.2-14.9) H 08/13/17 17:26 INR 1.24 (0.87-1.13) H 08/13/17 17:26 Abnormal lab findings: Abnormal Labs 08/13/17 08/13/17 08/13/17 15:44 16:40 17:26 WBC 23.7 H RBC 3.16 L MCV 105 H MCH 36 H Plt Count 133 L Lymph % (Auto) Lymph # [place] # Seg Neutrophils % Seg Neuts % (Manual) 90.0 H Lymphocytes % (Manual) 4.0 L Seg Neutrophils # Seg Neutrophils # Man 21.3 H Lymphocytes # (Manual) 0.9 L PT INR APTT POC ABG pH POC ABG pCO2 POC ABG pO2 VBG pH Sodium Potassium Chloride Carbon Dioxide BUN Creatinine Glucose POC Glucose Lactic Acid Calcium Phosphorus Magnesium 0.60 L* Total Bilirubin AST Alkaline Phosphatase Total Protein Albumin Lipase 8 L Urine WBC (Auto) > 182.0 H 08/13/17 08/13/17 08/13/17 17:26 17:26 17:26 WBC RBC MCV MCH Plt Count Lymph % (Auto) Lymph # [place] # Seg Neutrophils % Seg Neuts % (Manual) Lymphocytes % (Manual) Seg Neutrophils # Seg Neutrophils # Man Lymphocytes # (Manual) PT 16.3 H INR 1.24 H APTT 38.3 H POC ABG pH POC ABG pCO2 POC ABG pO2 VBG pH Sodium 136 L Potassium 3.2 L Chloride 97.1 L Carbon Dioxide 16 L BUN 5 L Creatinine 0.4 L Glucose 115 H POC Glucose Lactic Acid 7.30 H* Calcium 7.3 L Phosphorus Magnesium Total Bilirubin AST 123 H Alkaline Phosphatase 198 H Total Protein 6.2 L Albumin 2.6 L Lipase Urine WBC (Auto) 08/13/17 08/14/17 08/14/17 17:26 05:45 07:39 WBC RBC MCV MCH Plt Count Lymph % (Auto) Lymph # [place] # Seg Neutrophils % Seg Neuts % (Manual) Lymphocytes % (Manual) Seg Neutrophils # Seg Neutrophils # Man Lymphocytes # (Manual) PT INR APTT POC ABG pH POC ABG pCO2 POC ABG pO2 VBG pH 7.517 H Sodium Potassium 3.3 L 2.8 L* Chloride Carbon Dioxide 21 L 19 L BUN 4 L 4 L Creatinine 0.3 L 0.4 L Glucose POC Glucose Lactic Acid Calcium 7.7 L 7.5 L Phosphorus Magnesium Total Bilirubin AST Alkaline Phosphatase Total Protein Albumin Lipase Urine WBC (Auto) 08/14/17 08/14/17 08/14/17 13:43 20:24 21:53 WBC RBC MCV MCH Plt Count Lymph % (Auto) Lymph # [place] # Seg Neutrophils % Seg Neuts % (Manual) Lymphocytes % (Manual) Seg Neutrophils # Seg Neutrophils # Man Lymphocytes # (Manual) PT INR APTT POC ABG pH 7.467 H POC ABG pCO2 21.7 L POC ABG pO2 59 L VBG pH Sodium Potassium 3.3 L Chloride Carbon Dioxide BUN Creatinine Glucose POC Glucose 121 H Lactic Acid Calcium Phosphorus 1.10 L Magnesium Total Bilirubin AST Alkaline Phosphatase Total Protein Albumin Lipase Urine WBC (Auto) 08/14/17 08/15/17 08/15/17 23:43 08:33 08:33 WBC 19.3 H RBC 3.19 L MCV 105 H MCH 36 H Plt Count 118 L Lymph % (Auto) Lymph # [place] # Seg Neutrophils % Seg Neuts % (Manual) 90.0 H Lymphocytes % (Manual) 1.0 L Seg Neutrophils # Seg Neutrophils # Man 17.4 H Lymphocytes # (Manual) 0.2 L PT INR APTT POC ABG pH POC ABG pCO2 POC ABG pO2 VBG pH Sodium Potassium 3.1 L 3.3 L Chloride 109.0 H Carbon Dioxide 20 L 19 L BUN 5 L 5 L Creatinine 0.5 L < 0.2 L D Glucose POC Glucose Lactic Acid Calcium 7.4 L 7.4 L Phosphorus 1.50 L D Magnesium 1.50 L Total Bilirubin 3.40 H AST 90 H Alkaline Phosphatase 160 H Total Protein 5.4 L Albumin 1.9 L Lipase Urine WBC (Auto) 08/15/17 08/16/17 08/17/17 22:00 05:30 05:42 WBC 18.1 H RBC 3.28 L MCV 107 H MCH 36 H Plt Count Lymph % (Auto) 5.1 L Lymph # 0.9 L [place] # 1.1 H Seg Neutrophils % 88.8 H Seg Neuts % (Manual) Lymphocytes % (Manual) Seg Neutrophils # 16.1 H Seg Neutrophils # Man Lymphocytes # (Manual) PT INR APTT POC ABG pH POC ABG pCO2 POC ABG pO2 VBG pH Sodium 147 H Potassium 2.7 L* 2.5 L* Chloride 110.3 H Carbon Dioxide 17 L BUN 4 L 2 L Creatinine 0.2 L 0.3 L Glucose 50 L 114 H POC Glucose Lactic Acid Calcium 7.5 L 7.6 L Phosphorus 1.50 L 1.70 L Magnesium 1.20 L Total Bilirubin AST Alkaline Phosphatase Total Protein Albumin Lipase Urine WBC (Auto) 08/17/17 08/17/17 08/18/17 05:42 18:38 05:20 WBC RBC MCV MCH Plt Count Lymph % (Auto) Lymph # [place] # Seg Neutrophils % Seg Neuts % (Manual) Lymphocytes % (Manual) Seg Neutrophils # Seg Neutrophils # Man Lymphocytes # (Manual) PT INR APTT POC ABG pH POC ABG pCO2 POC ABG pO2 VBG pH Sodium Potassium 2.9 L* 3.3 L Chloride Carbon Dioxide BUN 2 L Creatinine 0.2 L Glucose POC Glucose Lactic Acid Calcium 8.1 L Phosphorus 1.90 L D Magnesium 1.30 L 1.60 L Total Bilirubin AST Alkaline Phosphatase Total Protein Albumin Lipase Urine WBC (Auto) 08/19/17 08/19/17 08/20/17 Unknown Unknown 08:00 WBC RBC MCV MCH Plt Count Lymph % (Auto) Lymph # [place] # Seg Neutrophils % Seg Neuts % (Manual) Lymphocytes % (Manual) Seg Neutrophils # Seg Neutrophils # Man Lymphocytes # (Manual) PT INR APTT POC ABG pH POC ABG pCO2 POC ABG pO2 VBG pH Sodium 136 L Potassium Chloride Carbon Dioxide BUN 2 L 2 L Creatinine < 0.2 L 0.2 L Glucose POC Glucose Lactic Acid Calcium 7.7 L Phosphorus 2.10 L Magnesium 1.20 L Total Bilirubin AST Alkaline Phosphatase Total Protein Albumin Lipase Urine WBC (Auto) 08/20/17 08:00 WBC RBC MCV MCH Plt Count Lymph % (Auto) Lymph # [place] # Seg Neutrophils % Seg Neuts % (Manual) Lymphocytes % (Manual) Seg Neutrophils # Seg Neutrophils # Man Lymphocytes # (Manual) PT INR APTT POC ABG pH POC ABG pCO2 POC ABG pO2 VBG pH Sodium Potassium Chloride Carbon Dioxide BUN Creatinine Glucose POC Glucose Lactic Acid Calcium Phosphorus Magnesium 1.60 L Total Bilirubin AST Alkaline Phosphatase Total Protein Albumin Lipase Urine WBC (Auto) Allied health notes reviewed: nursing
[2017-08-20] MEDS: COREG PO SCH (21:58)
[2017-08-21 07:52] LABS: BUN/Creatinine Ratio 13; Blood Urea Nitrogen 4 mg/dL (7-17); Calcium 8.8 mg/dL (8.4-10.2); Hemolysis Index 3
[2017-08-21] MEDS: MAG-OX PO SCH (11:23)
[2017-08-21] MEDS: KEPPRA PO SCH ×2 (11:23→23:11)
[2017-08-21] MEDS: VITAMIN B-1 PO SCH (11:24)
[2017-08-21] MEDS: FOLVITE PO SCH (11:24)
[2017-08-21] MEDS: COREG PO SCH ×2 (11:24→23:11)
[2017-08-21] MEDS: ZESTRIL PO SCH ×2 (11:25→11:32)
[2017-08-21] MEDS: PEPCID PO SCH ×2 (11:25→23:11)
[2017-08-21] MEDS: K-PHOS NEUTRAL PO SCH ×3 (11:25→23:11)
[2017-08-21] MEDS: cefTRIAXone 2 GM in NACL 0.9% 20 ML IV SCH ×2 (12:42→18:18)
--- NOTE | 2017-08-21 13:22 | Progress Note ---
Assessment and Plan Sepsis UTI Alcohol withdrawal with delirium tremors Hypokalemia/Hypomagnesemia Reflex Sinus tachycardia Mild Cardiomyopathy, likely alcohol induced echocardiogram reports a mild LVEF 40-45%. Recommend: Maintain electrolytes and monitor daily. Medical management for mild cardiomyopathy to include beta blockers and afterload reducing therapy. Further cardiac evaluation with an elective stress myocardial perfusion imaging will be obtained as an outpatient. Subjective Date of service: 08/21/17 Principal diagnosis: DT's / EtOH Withdrawals Interval history: Patient is more awake and responsive today. She denies chest pain or shortness of breath Objective Vital Signs Temp Pulse Pulse Resp BP BP Pulse Ox 08/21/17 08:19 99.0 F 16 94/65 08/21/17 06:44 98.8 F 128 H 17 86/60 91 08/20/17 23:39 99.3 F 118 H 18 101/75 95 08/20/17 22:00 135 H 93 08/20/17 21:58 140 H 100/89 08/20/17 21:54 99.0 F 91 H 17 129/81 95 08/20/17 16:24 99.5 F 121 H 19 98/63 91 08/20/17 14:20 113/64 - Physical Examination General: No Apparent Distress HEENT: Positive: PERRL Neck: Positive: trachea midline Cardiac: Positive: Reg Rate and Rhythm Lungs: Positive: Normal Exam Abdomen: Positive: Soft, Active Bowel Sounds Skin: Positive: Clear Extremities: Absent: edema - Labs and Meds Comprehensive Metabolic Panel 08/21/17 Range/Units 07:00 Sodium 139 (137-145) mmol/L Potassium 4.8 (3.6-5.0) mmol/L Chloride 101.8 (98-107) mmol/L Carbon Dioxide 24 (22-30) mmol/L BUN 4 L (7-17) mg/dL Creatinine 0.3 L (0.7-1.2) mg/dL Glucose 93 (65-100) mg/dL Calcium 8.8 (8.4-10.2) mg/dL - Imaging and Cardiology EKG: report reviewed (Sinus Tach 166) - Allied health notes Allied health notes reviewed: nursing
--- NOTE | 2017-08-21 13:37 | Progress Note ---
Assessment and Plan Sepsis Acute encephalopathy Alcohol withdrawal seizure with DTs Hypokalemia Hypomagnesemia Lactic acid acidosis Marijuana abuse Alcohol dependence Delirium tremens UTI (urinary tract infection) Sinus tachycardia Transaminitis -monitor hemodynamics closely - continue aspiration precautions - continue CIWA protocol with Ativan - magnesium and phosphorus replaced - continue empiric AB's and follow cultures -PT/OT to evaluate and treat -Substance abuse counselling done at the bedside -continue falls and seizure precautions Subjective Date of service: 08/14/17 Principal diagnosis: DT's / EtOH Withdrawals Interval history: Patient is seen today for: DT's / EtOH Withdrawal Seen and examined at bedside; 24hour events reviewed; nursing and respiratory care staff consulted; no adverse overnight events reported to me; resting in bed; calm, no agitation; no emesis or overt aspiration; no reported seizures today Vitals, labs, medications, chart reviewed Objective - Exam Narrative Exam: General.: Appears well, no distress, nontoxic, disheveled and unkempt HEENT: Moist mucous membranes, extraocular muscles intact, no lymphadenopathy Neck: supple Cardiac: RRR,S1-S2 heard, no murmurs Lungs: clear to auscultation bilaterally Abdomen: soft , nontender, nondistended, bowel sounds positive Extremities: no edema clubbing or cyanosis Skin: no rash or lesions Neurologic: awake, alert, oriented x3, non-focal neurologic exam Vital Signs - 12hr 08/21/17 08/21/17 06:44 08:19 Temperature 98.8 F 99.0 F Pulse Rate 128 H Respiratory 17 16 Rate Blood Pressure 86/60 94/65 O2 Sat by Pulse 91 Oximetry Constitutional: lethargic, appears uncomfortable Eyes: non-icteric ENT: oropharynx moist Neck: supple, no lymphadenopathy, no JVD Effort: mildly labored Ascultation: Bilateral: diminished breath sounds, wheezes, rhonchi (bases) Percussion: Bilateral: not dull Cardiovascular: regular rate and rhythm (tachycardia), other (S1,S2, no murmurs , gallops or rubs) Gastrointestinal: normoactive bowel sounds, soft, non-tender, non-distended Integumentary: normal Extremities: no cyanosis, no edema, pulses normal, no ischemia or petechiae Neurologic: non-focal exam (withdraws to pain, not following commands) Psychiatric: other (sedated) CBC and BMP: 08/15/17 22:00 08/21/17 07:00 ABG, PT/INR, D-dimer: ABG POC ABG pH 7.467 (7.35-7.45) H 08/14/17 21:53 POC ABG pCO2 21.7 (35-45) L 08/14/17 21:53 POC ABG pO2 59 (80-105) L 08/14/17 21:53 POC ABG HCO3 15.7 08/14/17 21:53 POC ABG Total CO2 16 08/14/17 21:53 POC ABG O2 Sat 93 08/14/17 21:53 PT/INR, D-dimer PT 16.3 Sec. (12.2-14.9) H 08/13/17 17:26 INR 1.24 (0.87-1.13) H 08/13/17 17:26 Abnormal lab findings: Abnormal Labs 08/13/17 08/13/17 08/13/17 15:44 16:40 17:26 WBC 23.7 H RBC 3.16 L MCV 105 H MCH 36 H Plt Count 133 L Lymph % (Auto) Lymph # Arthur # Seg Neutrophils % Seg Neuts % (Manual) 90.0 H Lymphocytes % (Manual) 4.0 L Seg Neutrophils # Seg Neutrophils # Man 21.3 H Lymphocytes # (Manual) 0.9 L PT INR APTT POC ABG pH POC ABG pCO2 POC ABG pO2 VBG pH Sodium Potassium Chloride Carbon Dioxide BUN Creatinine Glucose POC Glucose Lactic Acid Calcium Phosphorus Magnesium 0.60 L* Total Bilirubin AST Alkaline Phosphatase Total Protein Albumin Lipase 8 L Urine WBC (Auto) > 182.0 H 08/13/17 08/13/17 08/13/17 17:26 17:26 17:26 WBC RBC MCV MCH Plt Count Lymph % (Auto) Lymph # Arthur # Seg Neutrophils % Seg Neuts % (Manual) Lymphocytes % (Manual) Seg Neutrophils # Seg Neutrophils # Man Lymphocytes # (Manual) PT 16.3 H INR 1.24 H APTT 38.3 H POC ABG pH POC ABG pCO2 POC ABG pO2 VBG pH Sodium 136 L Potassium 3.2 L Chloride 97.1 L Carbon Dioxide 16 L BUN 5 L Creatinine 0.4 L Glucose 115 H POC Glucose Lactic Acid 7.30 H* Calcium 7.3 L Phosphorus Magnesium Total Bilirubin AST 123 H Alkaline Phosphatase 198 H Total Protein 6.2 L Albumin 2.6 L Lipase Urine WBC (Auto) 08/13/17 08/14/17 08/14/17 17:26 05:45 07:39 WBC RBC MCV MCH Plt Count Lymph % (Auto) Lymph # Arthur # Seg Neutrophils % Seg Neuts % (Manual) Lymphocytes % (Manual) Seg Neutrophils # Seg Neutrophils # Man Lymphocytes # (Manual) PT INR APTT POC ABG pH POC ABG pCO2 POC ABG pO2 VBG pH 7.517 H Sodium Potassium 3.3 L 2.8 L* Chloride Carbon Dioxide 21 L 19 L BUN 4 L 4 L Creatinine 0.3 L 0.4 L Glucose POC Glucose Lactic Acid Calcium 7.7 L 7.5 L Phosphorus Magnesium Total Bilirubin AST Alkaline Phosphatase Total Protein Albumin Lipase Urine WBC (Auto) 08/14/17 08/14/17 08/14/17 13:43 20:24 21:53 WBC RBC MCV MCH Plt Count Lymph % (Auto) Lymph # Arthur # Seg Neutrophils % Seg Neuts % (Manual) Lymphocytes % (Manual) Seg Neutrophils # Seg Neutrophils # Man Lymphocytes # (Manual) PT INR APTT POC ABG pH 7.467 H POC ABG pCO2 21.7 L POC ABG pO2 59 L VBG pH Sodium Potassium 3.3 L Chloride Carbon Dioxide BUN Creatinine Glucose POC Glucose 121 H Lactic Acid Calcium Phosphorus 1.10 L Magnesium Total Bilirubin AST Alkaline Phosphatase Total Protein Albumin Lipase Urine WBC (Auto) 08/14/17 08/15/17 08/15/17 23:43 08:33 08:33 WBC 19.3 H RBC 3.19 L MCV 105 H MCH 36 H Plt Count 118 L Lymph % (Auto) Lymph # Arthur # Seg Neutrophils % Seg Neuts % (Manual) 90.0 H Lymphocytes % (Manual) 1.0 L Seg Neutrophils # Seg Neutrophils # Man 17.4 H Lymphocytes # (Manual) 0.2 L PT INR APTT POC ABG pH POC ABG pCO2 POC ABG pO2 VBG pH Sodium Potassium 3.1 L 3.3 L Chloride 109.0 H Carbon Dioxide 20 L 19 L BUN 5 L 5 L Creatinine 0.5 L < 0.2 L D Glucose POC Glucose Lactic Acid Calcium 7.4 L 7.4 L Phosphorus 1.50 L D Magnesium 1.50 L Total Bilirubin 3.40 H AST 90 H Alkaline Phosphatase 160 H Total Protein 5.4 L Albumin 1.9 L Lipase Urine WBC (Auto) 08/15/17 08/16/17 08/17/17 22:00 05:30 05:42 WBC 18.1 H RBC 3.28 L MCV 107 H MCH 36 H Plt Count Lymph % (Auto) 5.1 L Lymph # 0.9 L Arthur # 1.1 H Seg Neutrophils % 88.8 H Seg Neuts % (Manual) Lymphocytes % (Manual) Seg Neutrophils # 16.1 H Seg Neutrophils # Man Lymphocytes # (Manual) PT INR APTT POC ABG pH POC ABG pCO2 POC ABG pO2 VBG pH Sodium 147 H Potassium 2.7 L* 2.5 L* Chloride 110.3 H Carbon Dioxide 17 L BUN 4 L 2 L Creatinine 0.2 L 0.3 L Glucose 50 L 114 H POC Glucose Lactic Acid Calcium 7.5 L 7.6 L Phosphorus 1.50 L 1.70 L Magnesium 1.20 L Total Bilirubin AST Alkaline Phosphatase Total Protein Albumin Lipase Urine WBC (Auto) 08/17/17 08/17/17 08/18/17 05:42 18:38 05:20 WBC RBC MCV MCH Plt Count Lymph % (Auto) Lymph # Arthur # Seg Neutrophils % Seg Neuts % (Manual) Lymphocytes % (Manual) Seg Neutrophils # Seg Neutrophils # Man Lymphocytes # (Manual) PT INR APTT POC ABG pH POC ABG pCO2 POC ABG pO2 VBG pH Sodium Potassium 2.9 L* 3.3 L Chloride Carbon Dioxide BUN 2 L Creatinine 0.2 L Glucose POC Glucose Lactic Acid Calcium 8.1 L Phosphorus 1.90 L D Magnesium 1.30 L 1.60 L Total Bilirubin AST Alkaline Phosphatase Total Protein Albumin Lipase Urine WBC (Auto) 08/19/17 08/19/17 08/20/17 Unknown Unknown 08:00 WBC RBC MCV MCH Plt Count Lymph % (Auto) Lymph # Arthur # Seg Neutrophils % Seg Neuts % (Manual) Lymphocytes % (Manual) Seg Neutrophils # Seg Neutrophils # Man Lymphocytes # (Manual) PT INR APTT POC ABG pH POC ABG pCO2 POC ABG pO2 VBG pH Sodium 136 L Potassium Chloride Carbon Dioxide BUN 2 L 2 L Creatinine < 0.2 L 0.2 L Glucose POC Glucose Lactic Acid Calcium 7.7 L Phosphorus 2.10 L Magnesium 1.20 L Total Bilirubin AST Alkaline Phosphatase Total Protein Albumin Lipase Urine WBC (Auto) 08/20/17 08/21/17 08/21/17 08:00 07:00 09:40 WBC RBC MCV MCH Plt Count Lymph % (Auto) Lymph # Arthur # Seg Neutrophils % Seg Neuts % (Manual) Lymphocytes % (Manual) Seg Neutrophils # Seg Neutrophils # Man Lymphocytes # (Manual) PT INR APTT POC ABG pH POC ABG pCO2 POC ABG pO2 VBG pH Sodium Potassium Chloride Carbon Dioxide BUN 4 L Creatinine 0.3 L Glucose POC Glucose Lactic Acid Calcium Phosphorus Magnesium 1.60 L 1.60 L Total Bilirubin AST Alkaline Phosphatase Total Protein Albumin Lipase Urine WBC (Auto) Allied health notes reviewed: nursing
--- NOTE | 2017-08-21 14:14 | Progress Note ---
Assessment and Plan Assessment and plan: 56-year-old female with a past medical history hypertension and daily alcohol use presents to the hospital with tachycardia. Patient received adenosine 6 then 12 en route to the hospital without improvement. Patient has 2 daughters at the bedside. Patient was been having nausea, vomiting, and diarrhea . Patient had a seizure witnessed by them and therefore EMS was called. Patient had generalized shaking, foaming at the mouth, followed by post ictal/ confusion. No previous history of seizures reported. They state the patient does drink alcohol daily and did not have a drink since one day. Sepsis secondary to UTI urine cx was contaminated, follow-up blood cultures, continue antibiotics, and rx empirically Delirium tremens Continue CIWA protocol, continue IV fluids, continue folate and B1 Electrolyte abnormalities; Hypokalemia, hypomagnesemia, hypophosphatemia Replete IV and by mouth, improved, only mg is low today, continue to replete Seizures due to alcohol withdrawal, and hypomagnesemia Replete electrolytes, Keppra twice a day, case discussed with Dr. Vazquez of neurology Alcohol dependence and marijuana dependence counseled on cessation, CM to provide outpatient resources Tachycardia case dw cardiology, fup echo, consistent with sinus tachycardia and requires no further workup Acute toxic and metabolic enceph alopathy -clinically improving, case dw neurologist -CT no acute findings, NH3 level wnl Debility continue PT, will need to go home with home PT as she is self pay, unfunded Daughter; Alexei Aj at [phone] History Interval history: Patient seen and evaluated medical records reviewed Feels better no new complaints No new episodes of seizure Hospitalist Physical - Constitutional Vitals: Temp Pulse Resp BP Pulse Ox 99.0 F 128 H 16 94/65 91 08/21/17 08:19 08/21/17 06:44 08/21/17 08:19 08/21/17 08:19 08/21/17 06:44 General appearance: Present: no acute distress, well-nourished, other (Confused ) - EENT Eyes: Present: PERRL, EOM intact - Neck Neck: Present: supple, normal ROM - Respiratory Respiratory effort: normal Respiratory: bilateral: diminished, negative: rales, rhonchi, wheezing - Cardiovascular Rhythm: regular Heart Sounds: Present: S1 & S2 - Extremities Extremities: no ischemia, No edema - Abdominal General gastrointestinal: soft, non-tender, non-distended, normal bowel sounds - Integumentary Integumentary: Present: clear, warm - Psychiatric Psychiatric: appropriate mood/affect, cooperative - Neurologic Neurologic: CNII-XII intact, moves all extremities Results - Labs CBC & Chem 7: 08/15/17 22:00 08/21/17 07:00 Labs: Laboratory Last Values WBC 18.1 K/mm3 (4.5-11.0) H 08/15/17 22:00 RBC 3.28 M/mm3 (3.65-5.03) L 08/15/17 22:00 Hgb 11.8 gm/dl (10.1-14.3) 08/15/17 22:00 Hct 34.9 % (30.3-42.9) 08/15/17 22:00 MCV 107 fl (79-97) H 08/15/17 22:00 MCH 36 pg (28-32) H 08/15/17 22:00 MCHC 34 % (30-34) 08/15/17 22:00 RDW 14.0 % (13.2-15.2) 08/15/17 22:00 Plt Count 141 K/mm3 (140-440) 08/15/17 22:00 Lymph % (Auto) 5.1 % (13.4-35.0) L 08/15/17 22:00 [place] % (Auto) 5.9 % (0.0-7.3) 08/15/17 22:00 Eos % (Auto) 0.0 % (0.0-4.3) 08/15/17 22:00 Baso % (Auto) 0.2 % (0.0-1.8) 08/15/17 22:00 Lymph # 0.9 K/mm3 (1.2-5.4) L 08/15/17 22:00 [place] # 1.1 K/mm3 (0.0-0.8) H 08/15/17 22:00 Eos # 0.0 K/mm3 (0.0-0.4) 08/15/17 22:00 Baso # 0.0 K/mm3 (0.0-0.1) 08/15/17 22:00 Add Manual Diff Complete 08/15/17 08:33 Total Counted 100 08/15/17 08:33 Seg Neutrophils % 88.8 % (40.0-70.0) H 08/15/17 22:00 Seg Neuts % (Manual) 90.0 % (40.0-70.0) H 08/15/17 08:33 Band Neutrophils % 9.0 % 08/15/17 08:33 Lymphocytes % (Manual) 1.0 % (13.4-35.0) L 08/15/17 08:33 Reactive Lymphs % (Man) 0 % 08/15/17 08:33 Monocytes % (Manual) 0 % (0.0-7.3) 08/15/17 08:33 Eosinophils % (Manual) 0 % (0.0-4.3) 08/15/17 08:33 Basophils % (Manual) 0 % (0.0-1.8) 08/15/17 08:33 Metamyelocytes % 0 % 08/15/17 08:33 Myelocytes % 0 % 08/15/17 08:33 Promyelocytes % 0 % 08/15/17 08:33 Blast Cells % 0 % 08/15/17 08:33 Nucleated RBC % Not Reportable 08/15/17 08:33 Seg Neutrophils # 16.1 K/mm3 (1.8-7.7) H 08/15/17 22:00 Seg Neutrophils # Man 17.4 K/mm3 (1.8-7.7) H 08/15/17 08:33 Band Neutrophils # 1.7 K/mm3 08/15/17 08:33 Lymphocytes # (Manual) 0.2 K/mm3 (1.2-5.4) L 08/15/17 08:33 Abs React Lymphs (Man) 0.0 K/mm3 08/15/17 08:33 Monocytes # (Manual) 0.0 K/mm3 (0.0-0.8) 08/15/17 08:33 Eosinophils # (Manual) 0.0 K/mm3 (0.0-0.4) 08/15/17 08:33 Basophils # (Manual) 0.0 K/mm3 (0.0-0.1) 08/15/17 08:33 Metamyelocytes # 0.0 K/mm3 08/15/17 08:33 Myelocytes # 0.0 K/mm3 08/15/17 08:33 Promyelocytes # 0.0 K/mm3 08/15/17 08:33 Blast Cells # 0.0 K/mm3 08/15/17 08:33 WBC Morphology Not Reportable 08/15/17 08:33 Hypersegmented Neuts Not Reportable 08/15/17 08:33 Hyposegmented Neuts Not Reportable 08/15/17 08:33 Hypogranular Neuts Not Reportable 08/15/17 08:33 Smudge Cells Not Reportable 08/15/17 08:33 Toxic Granulation 1+ 08/15/17 08:33 Toxic Vacuolation Few 08/15/17 08:33 Dohle Bodies Few 08/15/17 08:33 Pelger-Huet Anomaly Not Reportable 08/15/17 08:33 Kathryn Rods Not Reportable 08/15/17 08:33 Platelet Estimate Consistent w auto 08/15/17 08:33 Clumped Platelets Not Reportable 08/15/17 08:33 Plt Clumps, EDTA Not Reportable 08/15/17 08:33 Large Platelets Not Reportable 08/15/17 08:33 Giant Platelets Not Reportable 08/15/17 08:33 Platelet Satelliting Not Reportable 08/15/17 08:33 Plt Morphology Comment Not Reportable 08/15/17 08:33 RBC Morphology Not Reportable 08/15/17 08:33 Dimorphic RBCs Not Reportable 08/15/17 08:33 Polychromasia Not Reportable 08/15/17 08:33 Hypochromasia 1+ 08/15/17 08:33 Poikilocytosis Not Reportable 08/15/17 08:33 Anisocytosis Not Reportable 08/15/17 08:33 Microcytosis Not Reportable 08/15/17 08:33 Macrocytosis Not Reportable 08/15/17 08:33 Spherocytes Not Reportable 08/15/17 08:33 Pappenheimer Bodies Not Reportable 08/15/17 08:33 Sickle Cells Not Reportable 08/15/17 08:33 Target Cells Few 08/15/17 08:33 Tear Drop Cells Not Reportable 08/15/17 08:33 Ovalocytes Not Reportable 08/15/17 08:33 Helmet Cells Not Reportable 08/15/17 08:33 [place] Bodies Not Reportable 08/15/17 08:33 [place] Rings Not Reportable 08/15/17 08:33 Narda Cells Not Reportable 08/15/17 08:33 Bite Cells Not Reportable 08/15/17 08:33 Crenated Cell Not Reportable 08/15/17 08:33 Elliptocytes Not Reportable 08/15/17 08:33 Acanthocytes (Spur) Not Reportable 08/15/17 08:33 Rouleaux Not Reportable 08/15/17 08:33 Hemoglobin C Crystals Not Reportable 08/15/17 08:33 Schistocytes Not Reportable 08/15/17 08:33 Malaria parasites Not Reportable 08/15/17 08:33 [place] Bodies Not Reportable 08/15/17 08:33 Hem Pathologist Commnt No 08/15/17 08:33 PT 16.3 Sec. (12.2-14.9) H 08/13/17 17:26 INR 1.24 (0.87-1.13) H 08/13/17 17:26 APTT 38.3 Sec. (24.2-36.6) H 08/13/17 17:26 POC ABG pH 7.467 (7.35-7.45) H 08/14/17 21:53 POC ABG pCO2 21.7 (35-45) L 08/14/17 21:53 POC ABG pO2 59 (80-105) L 08/14/17 21:53 POC ABG HCO3 15.7 08/14/17 21:53 POC ABG Total CO2 16 08/14/17 21:53 POC ABG O2 Sat 93 08/14/17 21:53 POC ABG Base Excess -8 08/14/17 21:53 VBG pH 7.517 (7.320-7.420) H 08/13/17 17:26 FiO2 50 % 08/14/17 21:53 Sodium 139 mmol/L (137-145) 08/21/17 07:00 Potassium 4.8 mmol/L (3.6-5.0) 08/21/17 07:00 Chloride 101.8 mmol/L (98-107) 08/21/17 07:00 Carbon Dioxide 24 mmol/L (22-30) 08/21/17 07:00 Anion Gap 18 mmol/L 08/21/17 07:00 BUN 4 mg/dL (7-17) L 08/21/17 07:00 Creatinine 0.3 mg/dL (0.7-1.2) L 08/21/17 07:00 Estimated GFR > 60 ml/min 08/21/17 07:00 BUN/Creatinine Ratio 13 % 08/21/17 07:00 Glucose 93 mg/dL (65-100) 08/21/17 07:00 POC Glucose 121 (70-105) H 08/14/17 13:43 Lactic Acid 1.60 mmol/L (0.7-2.0) 08/16/17 15:15 Calcium 8.8 mg/dL (8.4-10.2) 08/21/17 07:00 Phosphorus 3.20 mg/dL (2.5-4.5) 08/21/17 07:00 Magnesium 1.60 mg/dL (1.7-2.3) L 08/21/17 09:40 Total Bilirubin 3.40 mg/dL (0.1-1.2) H 08/15/17 08:33 AST 90 units/L (5-40) H 08/15/17 08:33 ALT 43 units/L (7-56) 08/15/17 08:33 Alkaline Phosphatase 160 units/L (35-129) H 08/15/17 08:33 Ammonia 37.0 umol/L (25-60) 08/16/17 15:15 Total Creatine Kinase 70 units/L (30-135) 08/13/17 17:26 CK-MB (CK-2) 1.6 ng/mL (0.0-4.0) 08/13/17 17:26 CK-MB (CK-2) Rel Index 2.2 (0-4) 08/13/17 17:26 Troponin T < 0.010 ng/mL (0.00-0.029) 08/13/17 17:26 Total Protein 5.4 g/dL (6.3-8.2) L 08/15/17 08:33 Albumin 1.9 g/dL (3.9-5) L 08/15/17 08:33 Albumin/Globulin Ratio 0.5 % 08/15/17 08:33 Lipase 8 units/L (13-60) L 08/13/17 15:44 Urine Color Laura (Yellow) 08/13/17 16:40 Urine Turbidity Slightly-cloudy (Clear) 08/13/17 16:40 Urine pH 6.0 (5.0-7.0) 08/13/17 16:40 Ur Specific [place] 1.016 (1.003-1.030) 08/13/17 16:40 Urine Protein 100 mg/dl mg/dL (Negative) 08/13/17 16:40 Urine Glucose (UA) Neg mg/dL (Negative) 08/13/17 16:40 Urine Ketones Neg mg/dL (Negative) 08/13/17 16:40 Urine Blood Mod (Negative) 08/13/17 16:40 Urine Nitrite Neg (Negative) 08/13/17 16:40 Urine Bilirubin Neg (Negative) 08/13/17 16:40 Urine Urobilinogen 2.0 mg/dL (<2.0) 08/13/17 16:40 Ur Leukocyte Esterase Lg (Negative) 08/13/17 16:40 Urine WBC (Auto) > 182.0 /HPF (0.0-6.0) H 08/13/17 16:40 Urine RBC (Auto) 68.0 /HPF (0.0-6.0) 08/13/17 16:40 U Epithel Cells (Auto) < 1.0 /HPF (0-13.0) 08/13/17 16:40 Urine Bacteria (Auto) 4+ /HPF (Negative) 08/13/17 16:40 Ur Transition Epith Cell 2 /HPF 08/13/17 16:40 Hyaline Casts 1 /LPF 08/13/17 16:40 Urine Mucus Few /HPF 08/13/17 16:40 Urine Opiates Screen Presumptive negative 08/13/17 16:40 Urine Methadone Screen Presumptive negative 08/13/17 16:40 Ur Barbiturates Screen Presumptive negative 08/13/17 16:40 Ur Phencyclidine Scrn Presumptive negative 08/13/17 16:40 Ur Amphetamines Screen Presumptive negative 08/13/17 16:40 U Benzodiazepines Scrn Presumptive negative 08/13/17 16:40 Urine Cocaine Screen Presumptive negative 08/13/17 16:40 U Marijuana (THC) Screen Presumptive positive 08/13/17 16:40 Drugs of Abuse Note Disclamer 08/13/17 16:40 Plasma/Serum Alcohol < 0.01 gm% (0-0.07) 08/13/17 17:26 Hepatitis A IgM Ab Non-reactive (NonReactive) 08/14/17 Unknown Hep Bs Antigen Non-reactive (Negative) 08/14/17 Unknown Hep B Core IgM Ab Non-reactive (NonReactive) 08/14/17 Unknown Hepatitis C Antibody Non-reactive (NonReactive) 08/14/17 Unknown
[2017-08-21] MEDS: D5W/0.45% NACL/KCL 40 MEQ 40 MEQ/1,000 ML BAG IV SCH (18:18)
[2017-08-22] MEDS: D5W/0.45% NACL/KCL 40 MEQ 40 MEQ/1,000 ML BAG IV SCH ×2 (02:29→23:02)
[2017-08-22 07:13] LABS: BUN/Creatinine Ratio 7; Blood Urea Nitrogen 2 mg/dL (7-17); Calcium 8.5 mg/dL (8.4-10.2); Hemolysis Index 2
[2017-08-22] MEDS: KEPPRA PO SCH ×2 (11:51→21:42)
[2017-08-22] MEDS: MAG-OX PO SCH (11:51)
[2017-08-22] MEDS: FOLVITE PO SCH (11:51)
[2017-08-22] MEDS: PEPCID PO SCH ×2 (11:52→21:43)
[2017-08-22] MEDS: VITAMIN B-1 PO SCH (11:52)
[2017-08-22] MEDS: ZESTRIL PO SCH (11:55)
[2017-08-22] MEDS: COREG PO SCH ×2 (11:55→21:27)
[2017-08-22] MEDS ORDERED: MAGNESIUM SULFATE 3 GM in NACL 0.9% 100 ML IV ONE (12:00)
[2017-08-22] MEDS: cefTRIAXone 2 GM in NACL 0.9% 20 ML IV SCH (12:03)
--- NOTE | 2017-08-22 12:42 | Progress Note ---
Subjective - Reason for Consult Consult date: 08/22/17 Reason for consult: Psychiatry Follow-up - Chief Complaint Chief complaint: "Hello" 56-year-old female with a past medical history hypertension and daily alcohol use presents to the hospital with tachycardia. Today patient is calm and cooperative during the assessment. She stated that she will follow up with rehab services once discharged. She denies SI/HI's and AVH's. Mental Status Exam - Vital signs Last Vital Signs Temp 98.5 F 08/22/17 09:42 Pulse 103 H 08/22/17 09:42 Resp 18 08/22/17 09:42 BP 98/66 08/22/17 09:42 Pulse Ox 99 08/22/17 09:42 - Exam Narrative exam: MSE: Appearance: calm, cooperative Behavior: good eye contact Speech: regular rate and tone Mood: "okay" Affect: congruent to mood Thought Process: linear Thought Content: denies SI/HI's and AVH's Motor Activity: lying in bed Cognition: A/O x 3 Insight: appropriate Judgment: appropriate Assessment and Plan Impression: Per the record, the patient has a hx of alcoholism. Today patient is calm and cooperative during the assessment. Patient not in restraints. No acute withdrawals noted (etoh). Medical: Sepsis secondary to UTI Recommendation/Plan: Outpatient rehab services for [facility] given to patient. Psychiatry sign off.
--- NOTE | 2017-08-22 15:21 | Progress Note ---
Assessment and Plan - Patient Problems (1) Sinus tachycardia Current Visit: Yes Status: Acute Plan to address problem: Patient was referred for physiologic sinus tachycardia which occurred in association with her presenting sepsis and alcohol withdrawal. Echocardiogram demonstrated left ventricular ejection fraction 40-45%. She will be managed medically, and recommended for outpatient myocardial perfusion stress test. Subjective Date of service: 08/22/17 Principal diagnosis: DT's / EtOH Withdrawals Interval history: Patient is comfortable, no cardiac complaints. Objective Vital Signs Temp Pulse Resp BP Pulse Ox 08/22/17 12:31 98.3 F 117 H 18 101/70 93 08/22/17 09:42 98.5 F 103 H 18 98/66 99 08/22/17 04:52 98.4 F 99 H 20 141/123 98 08/21/17 20:55 98.6 F 103 H 18 100/68 98 08/21/17 15:55 98.5 F 109 H 18 95/64 97 - Physical Examination General: No Apparent Distress HEENT: Positive: PERRL Neck: Positive: trachea midline Cardiac: Positive: Reg Rate and Rhythm Lungs: Positive: Decreased Breath Sounds Neuro: Positive: Grossly Intact Abdomen: Positive: Soft, Active Bowel Sounds Skin: Positive: Clear Extremities: Absent: edema - Labs and Meds Comprehensive Metabolic Panel 08/22/17 Range/Units 05:54 Sodium 141 (137-145) mmol/L Potassium 5.2 H (3.6-5.0) mmol/L Chloride 104.8 (98-107) mmol/L Carbon Dioxide 23 (22-30) mmol/L BUN 2 L (7-17) mg/dL Creatinine 0.3 L (0.7-1.2) mg/dL Glucose 94 (65-100) mg/dL Calcium 8.5 (8.4-10.2) mg/dL - Imaging and Cardiology EKG: report reviewed (Sinus Tach 166) - Allied health notes Allied health notes reviewed: nursing
--- NOTE | 2017-08-22 15:47 | Progress Note ---
Assessment and Plan Assessment and plan: 56-year-old female with a past medical history hypertension and daily alcohol use presents to the hospital with tachycardia. Patient received adenosine 6 then 12 en route to the hospital without improvement. Patient has 2 daughters at the bedside. Patient was been having nausea, vomiting, and diarrhea . Patient had a seizure witnessed by them and therefore EMS was called. Patient had generalized shaking, foaming at the mouth, followed by post ictal/ confusion. No previous history of seizures reported. They state the patient does drink alcohol daily and did not have a drink since one day. --Sepsis secondary to UTI ; continue empiric antibiotics follow cultures --Alcohol withdrawal symptoms ; significantly improved ,Continue CIWA protocol, supportive care --Electrolyte abnormalities ; hypokalemia hypomagnesemia and hypophosphatemia ; replenish per protocol and monitor levels --History of alcohol withdrawal seizures; seizure precautions continue Keppra and neurology following --Chronic alcohol use ; counseling done advised to quit alcohol intake , patient may need alcohol rehabilitation Advised to attend AAA support group --Sinus tachycardia ; due to withdrawal symptoms , following echo , cardiology evaluated no further workup --Toxic metabolic encephalopathy; multifactorial Today patient is alert awake oriented 3, responding appropriately, received physical therapy --DC planning. Case management; possible home with home health and home PT, --possible discharge home tomorrow if stable Patient's condition treatment plan discussed in detail with the Daughter; Alexei Aj at [phone] The daughter has number of questions, answered all of them Possible DC home tomorrow with home health if stable History Interval history: Since seen and examined medical records reviewed Patient feels slightly better, alert and awake No new episodes of seizure Received physical therapy Hospitalist Physical - Constitutional Vitals: Temp Pulse Resp BP Pulse Ox 98.3 F 117 H 18 101/70 93 08/22/17 12:31 08/22/17 12:31 08/22/17 12:31 08/22/17 12:31 08/22/17 12:31 General appearance: Present: no acute distress, well-nourished, cachectic, other (Confused ) - EENT Eyes: Present: PERRL, EOM intact - Neck Neck: Present: supple, normal ROM - Respiratory Respiratory effort: normal Respiratory: bilateral: diminished, negative: rales, rhonchi, wheezing - Cardiovascular Rhythm: regular Heart Sounds: Present: S1 & S2 - Extremities Extremities: no ischemia, No edema Peripheral Pulses: within normal limits - Abdominal General gastrointestinal: soft, non-tender, non-distended, normal bowel sounds - Integumentary Integumentary: Present: clear, warm - Psychiatric Psychiatric: appropriate mood/affect, cooperative - Neurologic Neurologic: moves all extremities Results - Labs CBC & Chem 7: 08/15/17 22:00 08/22/17 05:54 Labs: Laboratory Last Values WBC 18.1 K/mm3 (4.5-11.0) H 08/15/17 22:00 RBC 3.28 M/mm3 (3.65-5.03) L 08/15/17 22:00 Hgb 11.8 gm/dl (10.1-14.3) 08/15/17 22:00 Hct 34.9 % (30.3-42.9) 08/15/17 22:00 MCV 107 fl (79-97) H 08/15/17 22:00 MCH 36 pg (28-32) H 08/15/17 22:00 MCHC 34 % (30-34) 08/15/17 22:00 RDW 14.0 % (13.2-15.2) 08/15/17 22:00 Plt Count 141 K/mm3 (140-440) 08/15/17 22:00 Lymph % (Auto) 5.1 % (13.4-35.0) L 08/15/17 22:00 [place] % (Auto) 5.9 % (0.0-7.3) 08/15/17 22:00 Eos % (Auto) 0.0 % (0.0-4.3) 08/15/17 22:00 Baso % (Auto) 0.2 % (0.0-1.8) 08/15/17 22:00 Lymph # 0.9 K/mm3 (1.2-5.4) L 08/15/17 22:00 [place] # 1.1 K/mm3 (0.0-0.8) H 08/15/17 22:00 Eos # 0.0 K/mm3 (0.0-0.4) 08/15/17 22:00 Baso # 0.0 K/mm3 (0.0-0.1) 08/15/17 22:00 Add Manual Diff Complete 08/15/17 08:33 Total Counted 100 08/15/17 08:33 Seg Neutrophils % 88.8 % (40.0-70.0) H 08/15/17 22:00 Seg Neuts % (Manual) 90.0 % (40.0-70.0) H 08/15/17 08:33 Band Neutrophils % 9.0 % 08/15/17 08:33 Lymphocytes % (Manual) 1.0 % (13.4-35.0) L 08/15/17 08:33 Reactive Lymphs % (Man) 0 % 08/15/17 08:33 Monocytes % (Manual) 0 % (0.0-7.3) 08/15/17 08:33 Eosinophils % (Manual) 0 % (0.0-4.3) 08/15/17 08:33 Basophils % (Manual) 0 % (0.0-1.8) 08/15/17 08:33 Metamyelocytes % 0 % 08/15/17 08:33 Myelocytes % 0 % 08/15/17 08:33 Promyelocytes % 0 % 08/15/17 08:33 Blast Cells % 0 % 08/15/17 08:33 Nucleated RBC % Not Reportable 08/15/17 08:33 Seg Neutrophils # 16.1 K/mm3 (1.8-7.7) H 08/15/17 22:00 Seg Neutrophils # Man 17.4 K/mm3 (1.8-7.7) H 08/15/17 08:33 Band Neutrophils # 1.7 K/mm3 08/15/17 08:33 Lymphocytes # (Manual) 0.2 K/mm3 (1.2-5.4) L 08/15/17 08:33 Abs React Lymphs (Man) 0.0 K/mm3 08/15/17 08:33 Monocytes # (Manual) 0.0 K/mm3 (0.0-0.8) 08/15/17 08:33 Eosinophils # (Manual) 0.0 K/mm3 (0.0-0.4) 08/15/17 08:33 Basophils # (Manual) 0.0 K/mm3 (0.0-0.1) 08/15/17 08:33 Metamyelocytes # 0.0 K/mm3 08/15/17 08:33 Myelocytes # 0.0 K/mm3 08/15/17 08:33 Promyelocytes # 0.0 K/mm3 08/15/17 08:33 Blast Cells # 0.0 K/mm3 08/15/17 08:33 WBC Morphology Not Reportable 08/15/17 08:33 Hypersegmented Neuts Not Reportable 08/15/17 08:33 Hyposegmented Neuts Not Reportable 08/15/17 08:33 Hypogranular Neuts Not Reportable 08/15/17 08:33 Smudge Cells Not Reportable 08/15/17 08:33 Toxic Granulation 1+ 08/15/17 08:33 Toxic Vacuolation Few 08/15/17 08:33 Dohle Bodies Few 08/15/17 08:33 Pelger-Huet Anomaly Not Reportable 08/15/17 08:33 Kathryn Rods Not Reportable 08/15/17 08:33 Platelet Estimate Consistent w auto 08/15/17 08:33 Clumped Platelets Not Reportable 08/15/17 08:33 Plt Clumps, EDTA Not Reportable 08/15/17 08:33 Large Platelets Not Reportable 08/15/17 08:33 Giant Platelets Not Reportable 08/15/17 08:33 Platelet Satelliting Not Reportable 08/15/17 08:33 Plt Morphology Comment Not Reportable 08/15/17 08:33 RBC Morphology Not Reportable 08/15/17 08:33 Dimorphic RBCs Not Reportable 08/15/17 08:33 Polychromasia Not Reportable 08/15/17 08:33 Hypochromasia 1+ 08/15/17 08:33 Poikilocytosis Not Reportable 08/15/17 08:33 Anisocytosis Not Reportable 08/15/17 08:33 Microcytosis Not Reportable 08/15/17 08:33 Macrocytosis Not Reportable 08/15/17 08:33 Spherocytes Not Reportable 08/15/17 08:33 Pappenheimer Bodies Not Reportable 08/15/17 08:33 Sickle Cells Not Reportable 08/15/17 08:33 Target Cells Few 08/15/17 08:33 Tear Drop Cells Not Reportable 08/15/17 08:33 Ovalocytes Not Reportable 08/15/17 08:33 Helmet Cells Not Reportable 08/15/17 08:33 Devlin-Higginson Bodies Not Reportable 08/15/17 08:33 Welch Rings Not Reportable 08/15/17 08:33 Narda Cells Not Reportable 08/15/17 08:33 Bite Cells Not Reportable 08/15/17 08:33 Crenated Cell Not Reportable 08/15/17 08:33 Elliptocytes Not Reportable 08/15/17 08:33 Acanthocytes (Spur) Not Reportable 08/15/17 08:33 Rouleaux Not Reportable 08/15/17 08:33 Hemoglobin C Crystals Not Reportable 08/15/17 08:33 Schistocytes Not Reportable 08/15/17 08:33 Malaria parasites Not Reportable 08/15/17 08:33 Eugene Bodies Not Reportable 08/15/17 08:33 Hem Pathologist Commnt No 08/15/17 08:33 PT 16.3 Sec. (12.2-14.9) H 08/13/17 17:26 INR 1.24 (0.87-1.13) H 08/13/17 17:26 APTT 38.3 Sec. (24.2-36.6) H 08/13/17 17:26 POC ABG pH 7.467 (7.35-7.45) H 08/14/17 21:53 POC ABG pCO2 21.7 (35-45) L 08/14/17 21:53 POC ABG pO2 59 (80-105) L 08/14/17 21:53 POC ABG HCO3 15.7 08/14/17 21:53 POC ABG Total CO2 16 08/14/17 21:53 POC ABG O2 Sat 93 08/14/17 21:53 POC ABG Base Excess -8 08/14/17 21:53 VBG pH 7.517 (7.320-7.420) H 08/13/17 17:26 FiO2 50 % 08/14/17 21:53 Sodium 141 mmol/L (137-145) 08/22/17 05:54 Potassium 5.2 mmol/L (3.6-5.0) H 08/22/17 05:54 Chloride 104.8 mmol/L (98-107) 08/22/17 05:54 Carbon Dioxide 23 mmol/L (22-30) 08/22/17 05:54 Anion Gap 18 mmol/L 08/22/17 05:54 BUN 2 mg/dL (7-17) L 08/22/17 05:54 Creatinine 0.3 mg/dL (0.7-1.2) L 08/22/17 05:54 Estimated GFR > 60 ml/min 08/22/17 05:54 BUN/Creatinine Ratio 7 % 08/22/17 05:54 Glucose 94 mg/dL (65-100) 08/22/17 05:54 POC Glucose 121 (70-105) H 08/14/17 13:43 Lactic Acid 1.60 mmol/L (0.7-2.0) 08/16/17 15:15 Calcium 8.5 mg/dL (8.4-10.2) 08/22/17 05:54 Phosphorus 3.80 mg/dL (2.5-4.5) 08/22/17 05:54 Magnesium 1.40 mg/dL (1.7-2.3) L 08/22/17 05:54 Total Bilirubin 3.40 mg/dL (0.1-1.2) H 08/15/17 08:33 AST 90 units/L (5-40) H 08/15/17 08:33 ALT 43 units/L (7-56) 08/15/17 08:33 Alkaline Phosphatase 160 units/L (35-129) H 08/15/17 08:33 Ammonia 37.0 umol/L (25-60) 08/16/17 15:15 Total Creatine Kinase 70 units/L (30-135) 08/13/17 17:26 CK-MB (CK-2) 1.6 ng/mL (0.0-4.0) 08/13/17 17:26 CK-MB (CK-2) Rel Index 2.2 (0-4) 08/13/17 17:26 Troponin T < 0.010 ng/mL (0.00-0.029) 08/13/17 17:26 Total Protein 5.4 g/dL (6.3-8.2) L 08/15/17 08:33 Albumin 1.9 g/dL (3.9-5) L 08/15/17 08:33 Albumin/Globulin Ratio 0.5 % 08/15/17 08:33 Lipase 8 units/L (13-60) L 08/13/17 15:44 Urine Color Laura (Yellow) 08/13/17 16:40 Urine Turbidity Slightly-cloudy (Clear) 08/13/17 16:40 Urine pH 6.0 (5.0-7.0) 08/13/17 16:40 Ur Specific [place] 1.016 (1.003-1.030) 08/13/17 16:40 Urine Protein 100 mg/dl mg/dL (Negative) 08/13/17 16:40 Urine Glucose (UA) Neg mg/dL (Negative) 08/13/17 16:40 Urine Ketones Neg mg/dL (Negative) 08/13/17 16:40 Urine Blood Mod (Negative) 08/13/17 16:40 Urine Nitrite Neg (Negative) 08/13/17 16:40 Urine Bilirubin Neg (Negative) 08/13/17 16:40 Urine Urobilinogen 2.0 mg/dL (<2.0) 08/13/17 16:40 Ur Leukocyte Esterase Lg (Negative) 08/13/17 16:40 Urine WBC (Auto) > 182.0 /HPF (0.0-6.0) H 08/13/17 16:40 Urine RBC (Auto) 68.0 /HPF (0.0-6.0) 08/13/17 16:40 U Epithel Cells (Auto) < 1.0 /HPF (0-13.0) 08/13/17 16:40 Urine Bacteria (Auto) 4+ /HPF (Negative) 08/13/17 16:40 Ur Transition Epith Cell 2 /HPF 08/13/17 16:40 Hyaline Casts 1 /LPF 08/13/17 16:40 Urine Mucus Few /HPF 08/13/17 16:40 Urine Opiates Screen Presumptive negative 08/13/17 16:40 Urine Methadone Screen Presumptive negative 08/13/17 16:40 Ur Barbiturates Screen Presumptive negative 08/13/17 16:40 Ur Phencyclidine Scrn Presumptive negative 08/13/17 16:40 Ur Amphetamines Screen Presumptive negative 08/13/17 16:40 U Benzodiazepines Scrn Presumptive negative 08/13/17 16:40 Urine Cocaine Screen Presumptive negative 08/13/17 16:40 U Marijuana (THC) Screen Presumptive positive 08/13/17 16:40 Drugs of Abuse Note Disclamer 08/13/17 16:40 Plasma/Serum Alcohol < 0.01 gm% (0-0.07) 08/13/17 17:26 Hepatitis A IgM Ab Non-reactive (NonReactive) 08/14/17 Unknown Hep Bs Antigen Non-reactive (Negative) 08/14/17 Unknown Hep B Core IgM Ab Non-reactive (NonReactive) 08/14/17 Unknown Hepatitis C Antibody Non-reactive (NonReactive) 08/14/17 Unknown
--- NOTE | 2017-08-22 22:35 | Event Note ---
Date: 08/22/17 Pulmonary note. Patient alert, awake. No complaint of chest pain,shortness of breath or cough.O2 saturation 95% on room air. Chest xray no acute process. Says smokes now and then. Counselled to stop smoking. Signing off the case. If patient needs any pulmonary help, call us back.
[2017-08-23] MEDS: ATIVAN IV PRN ×2 (05:28→07:41)
[2017-08-23 06:25] LABS: BUN/Creatinine Ratio 7; Blood Urea Nitrogen 2 mg/dL (7-17); Calcium 8.9 mg/dL (8.4-10.2); Hemolysis Index 11
--- NOTE | 2017-08-23 08:09 | Discharge Summary ---
Providers - Providers Date of Admission: 08/13/17 18:29 Date of discharge: 08/23/17 Attending physician: ROSHAN ALEJANDRO 08/14/17 10:09 Consult to Physician [CONS] Routine Consulting Provider: RENU GUSTAFSON Reason For Exam: Critical Care Place consult to:: Annita Notified:: Yes 08/15/17 15:19 Consult to Physician [CONS] Routine Consulting Provider: DADA SHERIFF Reason For Exam: Atrial tachycardia? Notified:: Answering Service 08/15/17 21:44 Consult to Mental Health [CONS] Routine Reason For Exam: Etoh dependence Place consult to:: y Notified:: y 08/16/17 03:11 Speech Therapy Evaluation and Treat [CONS] Routine Reason For Exam: swallow eval 08/17/17 13:55 Occupational Therapy Evaluate and Treat [CONS] Routine Comment: Reason For Exam: debility Physical Therapy Evaluation and Treat [CONS] Routine Comment: Reason For Exam: debility 08/22/17 13:32 Consult to Wound/ET Nurse [CONS] Routine Reason For Exam: wound eval Primary care physician: MALIHA MALLORY Hospitalization Reason for admission: witnessed seizures, alcohol withdrawal symptoms Condition: Serious Pertinent studies: CT head without contrast Chest x-ray Echocardiogram Hospital course: 56-year-old female with a past medical history hypertension and daily alcohol use presents to the hospital with tachycardia. Patient received adenosine 6 then 12 en route to the hospital without improvement. . Patient had witnessed seizures and alcohol withdrawal symptoms , patient was admitted to the hospital Placed on CIWA protocol, also noted to have UTI received empiric antibiotics cultures were negative to date Patient symptoms gradually and significantly improved, multiple electrolyte imbalances were corrected Received physical therapy occupational therapy Evaluated by case management, set up home health Today she is comfortable in bed, complains of generalized weakness, vital signs are stable, no episodes of withdrawal symptoms [id number] evaluation physical examination done by me, did not show new changes Patient is hemodynamically and clinically stable at discharge Strongly advised, alcohol rehabilitation, advised to join AA A support group, also explained to the daughter the importance of alcohol rehabilitation Discharge diagnosis; --Sepsis secondary to UTI ; continue empiric antibiotics follow cultures --Alcohol withdrawal symptoms ; significantly improved , --Electrolyte abnormalities ; hypokalemia hypomagnesemia and hypophosphatemia ; corrected --History of alcohol withdrawal seizures; seizure precautions continue Raman and follow up neurology --Chronic alcohol use ; counseling done advised to quit alcohol intake , patient may need alcohol rehabilitation ,Advised to attend AAA support group --Sinus tachycardia ; due to withdrawal symptoms , --Toxic metabolic encephalopathy; multifactorial --Ongoing tobacco use; smoking cessation counseling done advised nicotine patch as needed Today patient is alert awake oriented 3, responding appropriately, received physical therapy Hemodynamically and clinically stable for discharge I discussed patient's condition treatment and discharge plan in detail with the daughter over the phone and answered all her questions Disposition: [id number] HOME UNDER HOME [facility] Time spent for discharge: 32 min Core Measure Documentation - Palliative Care Palliative Care/ Comfort Measures: Not Applicable - Core Measures Any of the following diagnoses?: none Exam - Constitutional Vitals: Temp Pulse Resp BP Pulse Ox 98.4 F 113 H 20 111/68 94 08/22/17 22:15 08/23/17 04:30 08/22/17 22:15 08/23/17 05:19 08/22/17 22:15 General appearance: Present: no acute distress, well-nourished - EENT Eyes: Present: PERRL, EOM intact - Neck Neck: Present: supple, normal ROM - Respiratory Respiratory effort: normal Respiratory: bilateral: diminished, negative: rales, rhonchi, wheezing - Cardiovascular Rhythm: regular Heart Sounds: Present: S1 & S2 - Extremities Extremities: no ischemia, No edema - Abdominal General gastrointestinal: Present: soft, non-tender, non-distended, normal bowel sounds - Integumentary Integumentary: Present: clear, warm - Musculoskeletal Musculoskeletal: strength equal bilaterally, generalized weakness - Psychiatric Psychiatric: appropriate mood/affect, cooperative - Neurologic Neurologic: CNII-XII intact, moves all extremities Plan Activity: no driving until cleared by PCP, fall precautions, other (seizure precautions) Diet: regular Special Instructions: smoking cessation, physical therapy Durable Medical Equipment Needed Upon Discharge: Walker-Rolling Additional Instructions: Strongly advised to quit alcohol intake. Advised alcohol rehabilitation. Strongly encouraged to join AAA support group Follow up with: PRIMARY CARE, [Referring] - 3-5 Days Prescriptions: Famotidine [Pepcid] 20 mg PO BID #30 tablet Folic Acid [Folvite] 1 mg PO QDAY #30 tablet levETIRAcetam [Keppra TAB] 750 mg PO BID #60 tablet Magnesium Oxide [Mag-Ox] 400 mg PO QDAY #10 tablet Thiamine [Vitamin B-1] 100 mg PO QDAY #30 tablet
[2017-08-23 09:19] VITALS: BP 86/55
[2017-08-23] MEDS: COREG PO SCH (09:34)
[2017-08-23] MEDS: ZESTRIL PO SCH (09:35)
[2017-08-23] MEDS: FOLVITE PO SCH (09:36)
[2017-08-23] MEDS: KEPPRA PO SCH (09:36)
[2017-08-23] MEDS: MAG-OX PO SCH (09:36)
[2017-08-23] MEDS: VITAMIN B-1 PO SCH (09:37)
[2017-08-23] MEDS: cefTRIAXone 2 GM in NACL 0.9% 20 ML IV SCH (09:37)
[2017-08-23] MEDS: PEPCID PO SCH (09:37)
== END 2017-08-23 14:00 | disposition home health service (06) | DRG 871 ==
LOC: ED 14:55 → EDBD 14:55 → CC1 18:29 → 4A 08-15 07:16 → 3A 08-20 04:25
PROVIDERS: ADMIT Internal Medicine; ATTEND Internal Medicine
PROC: 4A033R1 Measurement of Arterial Saturation, Peripheral, Percutaneous Approach (ICD-10-PCS; principal; 2017-08-14)
PROC: 06HM33Z Insertion of Infusion Device into Right Femoral Vein, Percutaneous Approach (ICD-10-PCS; 2017-08-14)
DX: A41.9 Sepsis, unspecified organism (principal); G92 Toxic encephalopathy; N39.0 Urinary tract infection, site not specified; E87.2 Acidosis; F10.231 Alcohol dependence with withdrawal delirium; D69.6 Thrombocytopenia, unspecified; R25.1 Tremor, unspecified; E87.6 Hypokalemia; E83.42 Hypomagnesemia; F17.200 Nicotine dependence, unspecified, uncomplicated; Y90.9 Presence of alcohol in blood, level not specified; F12.20 Cannabis dependence, uncomplicated; Z71.6 Tobacco abuse counseling
CPT/HCPCS: 36415; 36600; 51702; 70450; 71045; 80048; 80053; 80074; 80307; 80320; 81001; 82140; 82550; 82553; 82803; 82805; 82962; 83690; 83735; 84100; 84132; 84484; 85007; 85025; 85610; 85730; 87040; 87086; 93005; 93010; 93306; 94760; A6250; G0480; J0153; J0696; J1953; J2060; J2405; J2543; J3370; J3411; J3475; J3480; J7030; J7040; J7042